=== PATIENT | female | born 1960 ===

== ENCOUNTER 2021-05-30 09:10 | Inpatient (IN) | payer MEDICARE, BC ==
[2021-05-30 12:00] LABS: Glucose,Whole Blood 178 mg/dL (75-99)
[2021-05-30] MEDS ORDERED: NALOXONE 0.4 MG/ML 1 ML VIAL IV PRN (12:12)
[2021-05-30] MEDS ORDERED: ACETAMINOPHEN TAB 325 MG TAB PO PRN (12:15)
[2021-05-30] MEDS ORDERED: NA PHOS,M-B/NA PHOS,DI-BA 133 ML ENEMA RECTAL PRN (12:15)
[2021-05-30] MEDS ORDERED: MORPHINE SULFATE 2 MG/ML SYRINGE IV PRN (12:15)
[2021-05-30] MEDS ORDERED: DILTIAZEM 125 MG in SODIUM CHLORIDE 0.9% 100 ML IV SCH (12:30)
[2021-05-30] MEDS ORDERED: HEPARIN SOD,PORK IN 0.45% NACL 25,000 UNIT in 0.45% NACL 1 250ML.BAG IV SCH (12:30)
[2021-05-30] MEDS ORDERED: BUMETANIDE 0.25 MG/ML 4 ML VIAL IVP STA (12:34)
[2021-05-30] MEDS ORDERED: methylPREDNISolone SOD SUCCI 125 MG/2 ML VIAL IV STA (12:34)
[2021-05-30] MEDS: NYSTATIN 100,000 UNIT/ML SUSP 500,000 UNIT/5 ML CUP PO SCH ×3 (13:00→21:01)
[2021-05-30 13:05] LABS: Basophils # (A) 0.1 k/uL (0-0.2); Basophils % (A) 0 %; Eosinophils % (A) 0 %; HGB 11.7 gm/dL (11.4-16.0); Hypochromasia Slight; Lymphocytes # (A) 0.5 k/uL (1.0-4.8); Lymphocytes % (A) 4 %; MCH 30.9 pg (25.0-35.0); MCHC 30.8 g/dL (31.0-37.0); MCV 100.5 fL (80.0-100.0); Monocytes # (A) 0.8 k/uL (0-1.0); Monocytes % (A) 6 %; Neutrophils # (A) 12.2 k/uL (1.3-7.7); Neutrophils % (A) 90 %; Platelet Count 219 k/uL (150-450); RBC 3.78 m/uL (3.80-5.40); RDW 13.5 % (11.5-15.5); WBC 13.6 k/uL (3.8-10.6)
--- NOTE | 2021-05-30 13:08 | XR ---
EXAMINATION TYPE: XR chest 1V DATE OF EXAM: 05/30/2021 COMPARISON: NONE HISTORY: Shortness of breath TECHNIQUE: Single frontal view of the chest is obtained. FINDINGS: Postoperative change with cardiomegaly and diffuse interstitial pattern. No pneumothorax. No sizable pleural effusion. IMPRESSION: Diffuse interstitial pattern correlate for interstitial pneumonitis versus venous conges tion.
[2021-05-30] MEDS: INSULIN ASPART (NovoLOG) 100 UNIT/ML VIAL SQ SCH ×3 (13:15→21:03)
[2021-05-30] MEDS: DILTIAZEM 125 MG in SODIUM CHLORIDE 0.9% 100 ML IV SCH ×2 (13:24→23:36)
[2021-05-30] MEDS ORDERED: IPRATROPIUM-ALBUTEROL 3 ML NEB INHALATION PRN (13:25)
--- NOTE | 2021-05-30 13:29 | P.CNPUL ---
History of Present Illness Consult date: 05/30/21 Reason for consult: dyspnea, COPD History of present illness: 58-year-old female patient was transferred to us from an outside hospital for worsening shortness of breath and acute respiratory distress. The patient presented to her primary care physician with worsening shortness of breath associated with some increased dyspnea and wheeze. She is known to have COPD and she quit smoking back in December 2020. She is smoking up to 2 pack of cigare ttes a day and she did that since the age of 11. She had increased cough and chest tightness along with some light yellow sputum production. Her cough got worse as the patient was having increased wheezing and shortness of breath and for that reason she presented to her physician. She was referred to the emergency department in the ED the patient was found to have a pulse ox in the low 80s. She wason 2 L about 2 by nasal cannula. She was also in atrial fibrillation with rapid ventricular response and she was started on a Cardizem drip. She was quite short of breath. Chest x-ray showed post thoracotomy changes. Cardiac enzymes were negative. INR was at 1.6. Patient was transferred to our hospital for further care. At the time of arrival to the ICU, she was already on BiPAP at a pressure of 10/5 cm of water with an FiO2 of 40%. She was feeling better. Her breathing was less labored. She denied having any chest pain. She was started on a Cardizem drip for heart rate was under better control. I reviewed the blood work that was sent over from the other hospital and the patient had a sodium level of 136, potassium of 4.5, serum bicarbonate 35, glucose of 150, AST of 56, creatinine of 0.7, ALT of 61, proBNP level of 3870, white cell count was at 13.8 with hemoglobin of 12.4. Chest x-ray showed "sternotomy with cardiac valve replacement. Note that the patient has undergone previous coronary artery bypass surgery and aortic/mitral valve replacement. Her EKG was showing A. fib/flutter and in our ICU, she was started in the front the rhythm with variable conduction response. Her most recent echocardiogram was done on 05/27/2021 and the patient was found to have a normal ejection fraction of 55%, right ventricular systolic pressure was estimated to be 52. There was severe increase in left atrial diameter, normal functioning mechanical mitral valve and normal functioning mechanical aortic valve. She had moderate degree of tricuspid regurgitation. At a time of my evaluation, the patient was awake and alert. She was feeling better. She was less short of breath. She wanted to come off the BiPAP mask. She was on IV heparin. She was also on Cardizem drip running at 5 mg an hour. She was still in atrial fibrillation/flutter. She was started on DuoNeb nebulized treatments around the clock. She was given also dose of Bumex 2 mg IV in addition to IV Solu-Medrol prior to her transfer here to our hospital through the [facility] catheter was inserted. Review of Systems Constitutional: Reports fatigue, Reports poor appetite Eyes: denies as per HPI, denies blurred vision, denies bulging eye, denies decreased vision, denies diplopia, denies discharge, denies dry eye, denies irritation, denies itching, denies pain, denies photophobia, denies loss of peripheral vision, denies loss of vision, denies tunnel vision/blind spots Ears: deny: decreased hearing, ear discharge, earache, tinnitus Ears, nose, mouth and throat: Reports as per HPI Breasts: absent: as per HPI, change in shape, gynecomastia, masses, nipple discharge, pain, skin changes, swelling Cardiovascular: Reports as per HPI, Reports decreased exercise tolerance, Reports dyspnea on exertion Respiratory: Reports cough, Reports dyspnea, Reports excessive sputum, Reports snoring, Reports wheezing Gastrointestinal: Reports as per HPI Genitourinary: Reports as per HPI Menstruation: Reports as per HPI Musculoskeletal: Reports as per HPI Musculoskeletal: bilateral: ankle swelling, absent: ankle pain, ankle stiffness Integumentary: Reports as per HPI Neurological: Reports as per HPI Psychiatric: Reports as per HPI Endocrine: Reports as per HPI Hematologic/Lymphatic: Reports as per HPI Past Medical History Past Medical History: Coronary Artery Disease (CAD), COPD Additional Past Medical History / Comment(s): History of aortic and mitral valve replacement with mechanical valves, hyperlipidemia, hypothyroidism, hypertension, chronic atrial fibrillation/flutter, obesity with a BMI of 46, COPD Past Surgical History: Cardiac Valve Replacement, Coronary Bypass/CABG Smoking Status: Former smoker (More than [id number] smoking history) Medications and Allergies Home Medications Medication Instructions Recorded Confirmed Type ALPRAZolam [Xanax] 0.5 mg PO TID 10/22/21 10/22/21 History ARIPiprazole [Abilify] 10 mg PO DAILY 05/30/21 05/30/21 History Aspirin EC [Ecotrin Low Dose] 81 mg PO DAILY 05/30/21 05/30/21 History Bisoprolol Fumarate [Zebeta] 10 mg PO DAILY 05/30/21 05/30/21 History Enalapril [Vasotec] 5 mg PO DAILY 05/30/21 05/30/21 History Fluticasone/Vilanterol [Breo 1 puff INHALATION RT-DAILY 05/30/21 05/30/21 History Ellipta 100-25 Mcg Inhaler] Furosemide [Lasix] 40 mg PO BID 05/30/21 05/30/21 History HYDROcodone/APAP 7.5-325MG [Thompson 1 tab PO BID PRN 05/30/21 05/30/21 History 7.5-325] Levothyroxine Sodium [Synthroid] 25 mcg PO DAILY 05/30/21 05/30/21 History Mirabegron [Myrbetriq] 25 mg PO DAILY 05/30/21 05/30/21 History Pantoprazole [Protonix] 40 mg PO DAILY 05/30/21 05/30/21 History RX: Warfarin Sodium 6 mg PO W/SUPPER 05/30/21 05/30/21 History RX: traMADol HCL 50 mg PO Q6H PRN 05/30/21 05/30/21 History Rosuvastatin [Crestor] 20 mg PO HS 05/30/21 05/30/21 History Venlafaxine HCl [Effexor] 225 mg PO BID 05/30/21 05/30/21 History Warfarin [Coumadin] 1 mg PO W/SUPPER 05/30/21 05/30/21 History Allergies Allergy/AdvReac Type Severity Reaction Status Date / Time Iodinated Contrast Media Allergy Nausea & Verified 05/30/21 12:17 Vomiting amoxicillin AdvReac Rash/Hives Verified 05/30/21 12:17 bupropion [From Wellbutrin] AdvReac Rash/Hives Verified 05/30/21 12:17 Penicillins AdvReac Rash/Hives Verified 05/30/21 12:17 Physical Exam Vitals: Vital Signs Temp Pulse Resp BP Pulse Ox 05/30/21 13:00 128 H 16 120/85 97 05/30/21 12:00 118 H 20 120/85 90 L 05/30/21 11:37 97.7 F 117 H 27 H 130/87 90 L Intake and Output 05/29/21 05/30/21 05/30/21 22:59 06:59 14:59 Other: Weight 114 kg Obese, in mild degree of respiratory distress, the patient is currently on a BiPAP with a BiPAP pressure of 10/5 cm water and the patient was weaned off to nasal cannula. She is not using excessive muscle breathing. Head exam was generally normal. There was no scleral icterus or corneal arcus. Mucous membranes were moist. Neck was supple and without jugular venous distension, thyromegaly, or carotid bruits. Carotids were easily palpable bilaterally. There was no adenopathy. Mucous membranes are dry and the patient is a Mallampati class IV Lungs sounds are diminished and the patient is diffuse expiratory wheezes throughout the lung parish bilaterally Heart sounds are irregular consistent with atrial fibrillation. There is a thoracotomy scar over the anterior part of the chest. The patient also has aortic valve and mitral valve clicks with some systolic ejection murmur grade 3/6 heard throughout the precordium mainly in the left lateral sternal border. Abdominal exam revealed normal bowel sounds. The abdomen was soft, non-tender, and without masses, organomegaly, or appreciable enlargement of the abdominal aorta. Extremities revealed +1 edema and there is no signs of clubbing Examination of the skin revealed no evidence of significant rashes, suspicious appearing nevi or other concerning lesions. Neurologically, the patient is awake and alert and the patient does not have any focal neurological deficit. Cranial nerves are essentially intact. Results - Laboratory Findings CBC and BMP: 05/30/21 12:44 Abnormal lab findings: Abnormal Labs 05/30/21 05/30/21 11:40 12:44 WBC 13.6 H RBC 3.78 L MCV 100.5 H MCHC 30.8 L Neutrophils # 12.2 H Lymphocytes # 0.5 L POC Glucose (mg/dL) 178 H - Diagnostic Findings Chest x-ray: image reviewed Assessment and Plan Plan: 1 acute COPD exacerbation with second and shortness of breath. Chest x-ray free of any acute pulmonary infiltrates. Rule out underlying taken bronchitis. 2 atrial fibrillation/flutter with rapid ventricular response currently on a Cardizem drip for rate control, INR was subtherapeutic and the patient is currently on IV heparin 3 shortness of breath secondary to above 4 acute hypoxic respiratory failure secondary to above. No signs of any congestion heart failure. ProBNP was elevated. No evidence of any pneumonia. The patient has been vaccinated for COVID-19 5 history of coronary artery disease with previous coronary artery bypass surgery 6 history of valvular disease and the patient has undergone mitral and aortic valve replacement, mechanical valve. Recent echo cardiac exam shows normal functionality of the mitral and aortic valve. The patient has a preserved LV function with normal ejection fraction and secondary pulmonary hypertension with a PA pressure of around 52 mmHg 7 subtherapeutic INR 8 obesity with a BMI of 46 9 features of obstructive sleep apnea. 10 hyperlipidemia 11 COPD maintained on Breo Ellipta on outpatient basis 12 hypothyroidism 13 hypertension Plan Discontinue the BiPAP and titrate oxygen flow to maintain a saturation above 92%. Started at 5 L continue DuoNeb and the treatment [id number] IV Solu-Medrol 60 mg every 6 hours stop Breo, and the plated with Perforomist and Pulmicort nebulized treatments twice a day IV Lasix 40 mg every 24 hours IV Cardizem drip for rate control IV heparin and monitor the PT/INR and dose the Coumadin accordingly. INR is currently subtherapeutic Recheck labs including thyroid function test Resume all medications including Synthroid and aspirin We'll continue to follow. Keep the patient ICU for now.
[2021-05-30 13:40] LABS: ALT 56 U/L (4-34); AST 42 U/L (14-36); African American GFR (CKD) >90 (>60 ml/min/1.73 sqM); Albumin 3.5 g/dL (3.5-5.0); Alkaline Phosphatase 102 U/L (38-126); Anion Gap 4 mmol/L; Blood Urea Nitrogen 22 mg/dL (7-17); Calcium 9.2 mg/dL (8.4-10.2); Carbon Dioxide 37 mmol/L (22-30); Chloride 97 mmol/L (98-107); Glucose 140 mg/dL (74-99); Magnesium 2.2 mg/dL (1.6-2.3); Non-African American GFR(CKD) >90 (>60 ml/min/1.73 sqM); Phosphorus 2.5 mg/dL (2.5-4.5); Potassium 4.2 mmol/L (3.5-5.1); Sodium 138 mmol/L (137-145); Total Bilirubin 0.4 mg/dL (0.2-1.3); Total Protein 6.4 g/dL (6.3-8.2)
[2021-05-30 13:47] LABS: Appearance,Urine Clear (Clear); Bilirubin,Urine Negative (Negative); Blood,Urine Negative (Negative); Color,Urine Light Yellow; Glucose,Urine (UA) Negative (Negative); Ketones,Urine Negative (Negative); Leukocyte Esterase,Urine Negative (Negative); Nitrite,Urine Negative (Negative); PH, Urine 6.5 (5.0-8.0); Protein,Urine Negative (Negative); Urobilinogen,Urine <2.0 mg/dL (<2.0)
[2021-05-30 13:51] LABS: Partial Thromboplastin Time 31.7 sec (22.0-30.0)
[2021-05-30 14:14] LABS: INR 6.6 (<1.2)
--- NOTE | 2021-05-30 14:34 | P.CRDCN ---
History of Present Illness Consult date: 05/30/21 Chief complaint: Shortness of breath History of present illness: The patient is a 61-year-old female patient was transferred from another [facility] for further care. She does have a past medical history significant for permanent atrial fibrillation on oral anticoagulation with Coumadin and also she does have history of rheumatic valvular disease where she underwent about a year ago replacement of the aortic and mitral valve with mechanical prosthesis. Beside that the patient is obese and does have history of chronic obstructive pulmonary disease. She is somewhat poor historian. Apparently she was seen by her primary care physician earlier today where she was found to have wheezing on examination and increasing in the shortness of breath with exertion. She was asked to go to the emergency department. Also she was experiencing increasing in her cough. She the patient reports no symptoms of chest pain or chest discomfort and no dizziness or lightheadedness and no presyncope or syncope. In the emergency department she was found to be hypoxic and she was found to be in atrial fibrillation with rapid ventricular response. For that reason the patient was transferred for further evaluation. She was already seen by the pulmonary critical care team and she was diagnosed with COPD exacerbation. Currently the patient is in atrial fibrillation with RVR. Currently she is on Cardizem at 5 mg per hour. She stated that she was compliant with her medications at home including beta emerson and also she was compliant with her C oumadin. On examination she seems in mild respiratory distress and she does have severe bilateral expiratory wheezing. The chest x-ray showed findings consistent with COPD with possible pulmonary vascular congestions. She was given a dose of Bumex earlier today and currently she is on Lasix at 40 mg IV daily. We will obtain serial cardiac enzymes to rule out acute coronary event. The patient is not aware if she underwent coronary artery bypass grafting with her surgery or no. She does not know she was diagnosed with CAD before. I did review the chart from the other hospital and that revealed an echocardiogram was performed recently and that revealed normal LV function with normally fu nctioning mechanical mitral and mechanical aortic prosthesis. Past Medical History Past Medical History: Coronary Artery Disease (CAD), COPD Additional Past Medical History / Comment(s): History of aortic and mitral valve replacement with mechanical valves, hyperlipidemia, hypothyroidism, hypertension, chronic atrial fibrillation/flutter, obesity with a BMI of 46, COPD Past Surgical History: Cardiac Valve Replacement, Coronary Bypass/CABG Smoking Status: Former smoker (More than [id number] smoking history) Medications and Allergies Home Medications Medication Instructions Recorded Confirmed Type ALPRAZolam [Xanax] 0.5 mg PO TID 05/30/21 05/30/21 History ARIPiprazole [Abilify] 10 mg PO DAILY 05/30/21 05/30/21 History Aspirin EC [Ecotrin Low Dose] 81 mg PO DAILY 05/30/21 05/30/21 History Bisoprolol Fumarate [Zebeta] 10 mg PO DAILY 05/30/21 05/30/21 History Enalapril [Vasotec] 5 mg PO DAILY 05/30/21 05/30/21 History Fluticasone/Vilanterol [Breo 1 puff INHALATION RT-DAILY 05/30/21 05/30/21 History Ellipta 100-25 Mcg Inhaler] Furosemide [Lasix] 40 mg PO BID 05/30/21 05/30/21 History HYDROcodone/APAP 7.5-325MG [Wheeler 1 tab PO BID PRN 05/30/21 05/30/21 History 7.5-325] Levothyroxine Sodium [Synthroid] 25 mcg PO DAILY 05/30/21 05/30/21 History Mirabegron [Myrbetriq] 25 mg PO DAILY 05/30/21 05/30/21 History Pantoprazole [Protonix] 40 mg PO DAILY 05/30/21 05/30/21 History Rosuvastatin [Crestor] 20 mg PO HS 05/30/21 05/30/21 History Venlafaxine HCl [Effexor] 225 mg PO BID 05/30/21 05/30/21 History Warfarin Sodium 6 mg PO W/SUPPER 05/30/21 05/30/21 History Warfarin [Coumadin] 1 mg PO W/SUPPER 05/30/21 05/30/21 History traMADol HCL 50 mg PO Q6H PRN 05/30/21 05/30/21 History Allergies Allergy/AdvReac Type Severity Reaction Status Date / Time Iodinated Contrast Media Allergy Nausea & Verified 05/30/21 12:17 Vomiting amoxicillin AdvReac Rash/Hives Verified 05/30/21 12:17 bupropion [From Wellbutrin] AdvReac Rash/Hives Verified 05/30/21 12:17 Penicillins AdvReac Rash/Hives Verified 05/30/21 12:17 Physical Exam Vitals: Vital Signs Temp Pulse Resp BP Pulse Ox 05/30/21 13:00 128 H 16 120/85 97 05/30/21 12:00 118 H 20 120/85 90 L 05/30/21 11:37 97.7 F 117 H 27 H 130/87 90 L Intake and Output 05/29/21 05/30/21 05/30/21 22:59 06:59 14:59 Intake Total 10 Output Total 1300 Balance -1290 Intake: IV 10 0.9 Normal Saline @ 5mL/ 5 hr - KVO Diltiazem 125 mg In 5 Sodium Chloride 0.9% 100 ml @ Per Protocol IV .Q0M [facility] Rx#:[id number] Output: Urine 1300 Other: Weight 114 kg - Constitutional General appearance: no acute distress - Respiratory Respiratory: bilateral: wheezing - Cardiovascular Rhythm: irregularly irregular Results 05/30/21 12:44 05/30/21 12:44 Cardiac Enzymes 05/30/21 Range/Units 12:44 AST 42 H (14-36) U/L Coagulation 05/30/21 Range/Units 12:44 PT 64.0 H (9.0-12.0) sec APTT 31.7 H (22.0-30.0) sec CBC 05/30/21 Range/Units 12:44 WBC 13.6 H (3.8-10.6) k/uL RBC 3.78 L (3.80-5.40) m/uL Hgb 11.7 (11.4-16.0) gm/dL Hct 38.0 (34.0-46.0) % Plt Count 219 (150-450) k/uL Comprehensive Metabolic Panel 05/30/21 Range/Units 12:44 Sodium 138 (137-145) mmol/L Potassium 4.2 (3.5-5.1) mmol/L Chloride 97 L (98-107) mmol/L Carbon Dioxide 37 H (22-30) mmol/L BUN 22 H (7-17) mg/dL Creatinine 0.57 (0.52-1.04) mg/dL Glucose 140 H (74-99) mg/dL Calcium 9.2 (8.4-10.2) mg/dL AST 42 H (14-36) U/L ALT 56 H (4-34) U/L Alkaline Phosphatase 102 (38-126) U/L Total Protein 6.4 (6.3-8.2) g/dL Albumin 3.5 (3.5-5.0) g/dL Current Medications Generic Name Dose Route Start Last Admin Trade Name Freq PRN Reason Stop Dose Admin Acetaminophen 650 mg 05/30/21 12:15 Acetaminophen Tab 325 Mg Tab PO Q4HR PRN Fever and/or Mild Pain Hydrocodone Bitart/Acetaminophen 1 each 05/30/21 13:24 Hydrocodone/Apap 7.5-325mg 1 Each Tab PO BID PRN Pain Albuterol/Ipratropium 3 ml 05/30/21 16:00 Ipratropium-Albuterol 3 Ml Neb INHALATION RT-Q4H ROGERS Albuterol/Ipratropium 3 ml 05/30/21 20:00 Ipratropium-Albuterol 3 Ml Neb INHALATION RT-TID ROGERS Albuterol/Ipratropium 3 ml 05/30/21 13:25 Ipratropium-Albuterol 3 Ml Neb INHALATION RT-QID PRN Shortness Of Breath Or Wheezing Alprazolam 0.125 mg 05/30/21 12:15 Alprazolam 0.25 Mg Tab PO Q6HR PRN Mild Anxiety Aripiprazole 10 mg 05/30/21 13:45 Aripiprazole 10 Mg Tab PO DAILY ROGERS Aspirin 81 mg 05/30/21 13:45 Aspirin 81 Mg PO DAILY [facility] Atorvastatin Calcium 40 mg 05/30/21 21:00 Atorvastatin 40 Mg Tab PO HS [facility]ERS Budesonide 1 mg 05/30/21 20:00 Budesonide 1 Mg/2 Ml Nebu INHALATION RT-BID ROGERS Formoterol Fumarate 20 mcg 05/30/21 20:00 Formoterol Fumarate 20 Mcg/2 Ml Nebu INHALATION RT-BID [facility] Furosemide 40 mg 05/31/21 09:00 Furosemide 10 Mg/Ml 4 Ml Vial IV DAILY [facility]ERS Diltiazem HCl 125 mg/ Sodium 125 mls @ 0 mls/hr 05/30/21 13:00 05/30/21 13:24 Chloride IV 5 ml/hr .Q0M [facility] 5 mls/hr Administration Protocol Per Protocol Heparin Sodium/Sodium Chloride 250 mls @ 10 mls/hr 05/30/21 12:30 05/30/21 13:37 25,000 unit/ Sodium Chloride IV 8.772 units/kg/hr .Q24H [facility]OGERS 10 mls/hr Administration Protocol 8.772 UNITS/KG/HR Insulin Aspart 0 unit 05/30/21 12:30 05/30/21 13:15 Insulin Aspart (Novolog) 100 Unit/Ml Vial SQ 3 unit ACHS [facility] Administration Protocol Levothyroxine Sodium 25 mcg 05/31/21 06:30 Levothyroxine 25 Mcg Tab PO DAILY@0630 [facility] Methylprednisolone Sodium Succinate 60 mg 05/30/21 18:00 Methylprednisolone Sod Succi 125 Mg/2 Ml Vial IV Q6HR [facility] Miscellaneous Information 1 each 05/30/21 13:28 Warfarin Per Pharmacy MISCELLANE DIRECTED PRN Per Protocol Protocol Morphine Sulfate 2 mg 05/30/21 12:15 Morphine Sulfate 2 Mg/Ml Syringe IV Q2HR PRN Pain Scale 4 to 5 Naloxone HCl 0.2 mg 05/30/21 12:12 Naloxone 0.4 Mg/Ml 1 Ml Vial IV Q2M PRN Opioid Reversal Non-Formulary Medication 25 mg 05/31/21 09:00 Mirabegron [Myrbetriq] PO DAILY [facility] Nystatin 400,000 unit 05/30/21 13:00 Nystatin 100,000 Unit/Ml Susp 500,000 Unit/5 Ml Cup PO QID [facility] Pantoprazole Sodium 40 mg 05/31/21 07:30 Pantoprazole 40 Mg Tablet PO AC-BRKFST [facility] Senna 17.2 mg 05/30/21 21:00 Sennosides 8.6 Mg Tab NG-TUBE HS [facility] Sodium Biphosphate/Sodium Phosphate 133 ml 05/30/21 12:15 Na Phos,M-B/Na Phos,Di-Ba 133 Ml Enema RECTAL 06/06/21 12:16 ONCE PRN Constipation Venlafaxine HCl 225 mg 05/30/21 21:00 Venlafaxine Hcl 75 Mg Tab PO BID [facility] Intake and Output 05/29/21 05/30/21 05/30/21 22:59 06:59 14:59 Intake Total 10 Output Total 1300 Balance -1290 Intake: IV 10 0.9 Normal Saline @ 5mL/ 5 hr - KVO Diltiazem 125 mg In 5 Sodium Chloride 0.9% 100 ml @ Per Protocol IV .Q0M [facility] Rx#:[id number] Output: Urine 1300 Other: Weight 114 kg Patient Weight 05/31/21 06:59 Weight 114 kg 05/30/21 12:44 05/30/21 12:44 Assessment and Plan Assessment: Assessment #1 acute hypoxic respiratory failure #2 acute exacerbation of COPD #3 probably a component of heart failure related to diastolic dysfunction #4 atrial fibrillation with rapid ventricular response. The patient is known to have permanent atrial fibrillation #5 valvular heart disease and status post mechanical mitral and aortic valve replacement #6 morbid obesity #7 supratherapeutic INR #8 multiple comorbid conditions Plan #1 agree about keeping the patient on heparin right now. #2 restart the patient back on Coumadin once the INR is down and continue heparin until the INR is therapeutic otherwise the patient is at high risk of having valve thrombosis #3 continue Lasix IV for now #4 monitor the kidney function and electrolytes #5 follow-up with the patient
--- NOTE | 2021-05-30 14:45 | P.HPIM ---
History of Present Illness H&P Date: 05/30/21 Chief Complaint: Shortness of Breath 58 years old female who presented with the chief complaints of worsening respiratory failure from outside hospital. Originally she presented at outside hospital for worsening shortness of breath, patient was admitted for respiratory failure due to COPD exacerbation and possible CHF with fluid overload, patient also developed atrial fibrillation with RVR. Patient was started on BiPAP and was started on Cardizem drip outside hospital, I was contacted by physician from outside hospital who mentioned that they do not have ICU at their facility and patient is requiring higher level of care. Patient does have history of pr evious coronary artery bypass surgery and aortic mitral valve replacement. Patient most recent echocardiogram was done on 05/27/2021 showing EF of 55%, RVSP 52, otherwise no major abnormalities were noted per electronic medical record. Patient was transferred to [facility] for further care and was admitted to hospital medicine service on ICU. Review of Systems 14 point review of system was done in detail and is negative except as above in HPI. Past Medical History Past Medical History: Coronary Artery Disease (CAD), COPD, Hyperlipidemia, Hypertension, Myocardial Infarction (NE), Sleep Apnea/CPAP/BIPAP Additional Past Medical History / Comment(s): History of aortic and mitral valve replacement with mechanical valves, hyperlipidemia, hypothyroidism, hypertension, chronic atrial fibrillation/flutter, obesity with a BMI of 46, COPD Past Surgical History: Cardiac Valve Replacement, Coronary Bypass/CABG Smoking Status: Former smoker (More than [id number] smoking history) Medications and Allergies Home Medications Medication Instructions Recorded Confirmed Type ALPRAZolam [Xanax] 0.5 mg PO TID 05/30/21 05/30/21 History ARIPiprazole [Abilify] 10 mg PO DAILY 05/30/21 05/30/21 History Aspirin EC [Ecotrin Low Dose] 81 mg PO DAILY 05/30/21 05/30/21 History Bisoprolol Fumarate [Zebeta] 10 mg PO DAILY 05/30/21 05/30/21 History Enalapril [Vasotec] 5 mg PO DAILY 05/30/21 05/30/21 History Fluticasone/Vilanterol [Breo 1 puff INHALATION RT-DAILY 05/30/21 05/30/21 History Ellipta 100-25 Mcg Inhaler] Furosemide [Lasix] 40 mg PO BID 05/30/21 05/30/21 History HYDROcodone/APAP 7.5-325MG [Cable 1 tab PO BID PRN 05/30/21 05/30/21 History 7.5-325] Levothyroxine Sodium [Synthroid] 25 mcg PO DAILY 05/30/21 05/30/21 History Mirabegron [Myrbetriq] 25 mg PO DAILY 05/30/21 05/30/21 History Pantoprazole [Protonix] 40 mg PO DAILY 05/30/21 05/30/21 History Rosuvastatin [Crestor] 20 mg PO HS 05/30/21 05/30/21 History Venlafaxine HCl [Effexor] 225 mg PO BID 05/30/21 05/30/21 History Warfarin Sodium 6 mg PO W/SUPPER 05/30/21 05/30/21 History Warfarin [Coumadin] 1 mg PO W/SUPPER 05/30/21 05/30/21 History traMADol HCL 50 mg PO Q6H PRN 05/30/21 05/30/21 History Allergies Allergy/AdvReac Type Severity Reaction Status Date / Time Iodinated Contrast Media Allergy Nausea & Verified 05/30/21 12:17 Vomiting amoxicillin AdvReac Rash/Hives Verified 05/30/21 12:17 bupropion [From Wellbutrin] AdvReac Rash/Hives Verified 05/30/21 12:17 Penicillins AdvReac Rash/Hives Verified 05/30/21 12:17 Physical Exam Vitals: Vital Signs Temp Pulse Resp BP Pulse Ox 05/30/21 13:00 128 H 16 120/85 97 05/30/21 12:00 118 H 20 120/85 90 L 05/30/21 11:37 97.7 F 117 H 27 H 130/87 90 L Intake and Output 05/29/21 05/30/21 05/30/21 22:59 06:59 14:59 Intake Total 10 Output Total 1300 Balance -1290 Intake: IV 10 0.9 Normal Saline @ 5mL/ 5 hr - KVO Diltiazem 125 mg In 5 Sodium Chloride 0.9% 100 ml @ Per Protocol IV .Q0M [facility] Rx#:[id number] Output: Urine 1300 Other: Weight 114 kg General: Patient in mild to moderate distress due to" HEENT: Atraumatic, PERRL, neck supple no lymphadenopathy Heart: Irregularly irregular heart rate, systolic murmur heard Lungs: Diminished breath sounds bilaterally, bilateral lower lobe crackles Abdomen: Soft nontender nondistended no organomegaly noticed, while some positive for coronary Lower extremity:Positive, +1 lower extremity edema, extremities warm Neurologic exam: Patient alert oriented time place and person, grossly nonfocal Psychiatric exam: Mood appropriate, Patient not suicidal Skin exam: No rashes, no jaundice Results CBC & Chem 7: 05/30/21 12:44 05/30/21 12:44 Labs: Abnormal Lab Results - Last 24 Hours (Table) 05/30/21 05/30/21 05/30/21 Range/Units 11:40 12:44 12:44 WBC 13.6 H (3.8-10.6) k/uL RBC 3.78 L (3.80-5.40) m/uL MCV 100.5 H (80.0-100.0) fL MCHC 30.8 L (31.0-37.0) g/dL Neutrophils # 12.2 H (1.3-7.7) k/uL Lymphocytes # 0.5 L (1.0-4.8) k/uL PT 64.0 H (9.0-12.0) sec INR 6.6 H* (<1.2) APTT 31.7 H (22.0-30.0) sec Chloride (98-107) mmol/L Carbon Dioxide (22-30) mmol/L BUN (7-17) mg/dL Glucose (74-99) mg/dL POC Glucose (mg/dL) 178 H (75-99) mg/dL AST (14-36) U/L ALT (4-34) U/L 05/30/21 Range/Units 12:44 WBC (3.8-10.6) k/uL RBC (3.80-5.40) m/uL MCV (80.0-100.0) fL MCHC (31.0-37.0) g/dL Neutrophils # (1.3-7.7) k/uL Lymphocytes # (1.0-4.8) k/uL PT (9.0-12.0) sec INR (<1.2) APTT (22.0-30.0) sec Chloride 97 L (98-107) mmol/L Carbon Dioxide 37 H (22-30) mmol/L BUN 22 H (7-17) mg/dL Glucose 140 H (74-99) mg/dL POC Glucose (mg/dL) (75-99) mg/dL AST 42 H (14-36) U/L ALT 56 H (4-34) U/L Assessment and Plan Assessment: Acute hypoxic respiratory failure Likely multifactorial, due to COPD exacerbation and congestive heart failure exacerbation, likely acute diastolic congestive heart failure, and this revealed atrial fibrillation with RVR We'll start patient on broad-spectrum metabolic, check sputum culture, Solu- Medrol 60 mg every 8 hours IV Careful diuresis and management of atrial fibrillation with RVR, cardiology consultation Consulting cardiology and pulmonary medicine. Acute COPD exacerbation, cannot exclude hospital-acquired pneumonia We'll start patient on broad-spectrum metabolic, Solu-Medrol 60 mg IV every 8 hourly Bronchodilator treatment continue oxygen support and BiPAP as needed Check CT chest angiogram We'll get ABGs, with a pulmonary medicine consultation Atrial fibrillation with RVR Patient at home was on Coumadin for her history of mechanical cardiac valve, will keep patient here on heparin drip, Cardizem drip Echocardiogram recently done as mentioned above EF 55% RVSP 52 We'll consult cardiology for evaluation. Acute on chronic diastolic congestive heart failure Likely in the setting of above echocardiogram results as mentioned above IV diuresis with careful monitoring of basic medical profile renal function on a daily basis Continue cardiac telemetry. History of coronary artery disease status post CABG and history of valvular heart disease status post mitral and aortic valve replacement with mechanical valve Continue anticoagulation as mentioned above Consulting cardiology for further recommendation. Obesity with obstructive sleep apnea, BMI of 46 Continue BiPAP Patient will benefit from outpatient sleep study. Hyperlipidemia Continue statin DVT prophylaxis: Heparin CODE STATUS: Full code Discharge plan: Likely in 3-4 days pending hospital course and clinical improvement and pending workup.
[2021-05-30 14:58] VITALS: BMI 45.9
[2021-05-30 15:49] LABS: Creatine Kinase MB 3.1 ng/mL (0.0-2.4); Troponin I 0.014 ng/mL (0.000-0.034)
[2021-05-30] MEDS: ASPIRIN 81 MG PO SCH (15:57)
[2021-05-30] MEDS: ARIPiprazole 10 MG TAB PO SCH (15:57)
[2021-05-30] MEDS: IPRATROPIUM-ALBUTEROL 3 ML NEB INHALATION SCH ×3 (16:06→23:31)
[2021-05-30 17:15] LABS: Glucose,Whole Blood 207 mg/dL (75-99)
[2021-05-30] MEDS: methylPREDNISolone SOD SUCCI 125 MG/2 ML VIAL IV SCH (17:23)
[2021-05-30 17:50] LABS: T4, Free (Free Thyroxine) 1.5 ng/dL (0.78-2.19)
[2021-05-30] MEDS ORDERED: WARFARIN 0.5 MG TAB PO ONE (18:00)
[2021-05-30] MEDS: FORMOTEROL FUMARATE 20 MCG/2 ML NEBU INHALATION SCH (19:02)
[2021-05-30] MEDS: BUDESONIDE 1 MG/2 ML NEBU INHALATION SCH (19:02)
[2021-05-30] MEDS ORDERED: IPRATROPIUM-ALBUTEROL 3 ML NEB INHALATION SCH (20:00)
[2021-05-30] MEDS ORDERED: VANCOMYCIN IV PER PHARMACY 1 EACH MISC MISCELLANE PRN (20:19)
[2021-05-30 20:21] LABS: Creatine Kinase MB 2.3 ng/mL (0.0-2.4); Troponin I 0.017 ng/mL (0.000-0.034)
[2021-05-30 20:35] LABS: Glucose,Whole Blood 138 mg/dL (75-99)
[2021-05-30] MEDS ORDERED: ONDANSETRON 4 MG/2 ML VIAL IVP PRN (20:51)
[2021-05-30] MEDS ORDERED: CEFEPIME 1 GM in SODIUM CHLORIDE 0.9% 50 ML IVPB ONE (21:00)
[2021-05-30] MEDS ORDERED: SENNOSIDES 8.6 MG TAB NG-TUBE SCH (21:00)
[2021-05-30] MEDS: ATORVASTATIN 40 MG TAB PO SCH (21:01)
[2021-05-30] MEDS: VENLAFAXINE HCL 75 MG TAB PO SCH (21:01)
[2021-05-30] MEDS: SENNOSIDES 8.6 MG TAB PO SCH (21:01)
[2021-05-30] MEDS: ALPRAZolam 0.25 MG TAB PO PRN (21:01)
[2021-05-30] MEDS: HYDROcodone/APAP 7.5-325MG 1 EACH TAB PO PRN (21:11)
--- NOTE | 2021-05-30 21:49 | CT ---
EXAMINATION TYPE: CT chest angio for PE DATE OF EXAM: 05/30/2021 COMPARISON: HISTORY: sob CT DLP: 902.7 mGycm CONTRAST: CT chest with contrast and 3D reconstruction with MIP imaging is performed with IV Contrast, patient injected with 100 mL of Isovue 370. Contrast-enhanced CT of the chest was performed through the course of the pulmonary arteries with bennett g and mediastinal window settings submitted. 3D reconstruction with MIP imaging was also performed. PULMONARY ARTERIES: The pulmonary arteries and their major tributaries are patent. I do not see ian dence for sizable filling defect to suggest pulmonary embolic process. LUNGS: Spiculated nodule right upper lobe measuring 2 cm. Patchy infiltrates and atelectasis lower lo bes. MEDIASTINUM: Thoracic aorta is of normal caliber,however, evaluation is limited given timing of the contrast bolus. If there is concern for thoracic aortic pathology consider SUNITA. Correlate clinicall y . The heart is not enlarged. No evidence for mediastinal mass. No mediastinal lymph nodes greater than 1cm. HILAR STRUCTURES: No evidence for mass. No hilar lymph nodes greater than 1 cm. UPPER ABDOMEN: No significant abnormality is seen. IMPRESSION: 1. No evidence for Pulmonary embolism at this time. 2. Spiculated nodule right upper lobe suspicious for malignancy. Recommend PET/CT. 3. Patchy basilar infiltrates and/or atelectasis.
[2021-05-30] MEDS: VANCOMYCIN 1,750 MG in SODIUM CHLORIDE 0.9% 500 ML 500 ML IVPB SCH (23:02)
[2021-05-31] MEDS: methylPREDNISolone SOD SUCCI 125 MG/2 ML VIAL IV SCH ×5 (00:27→23:29)
[2021-05-31 03:13] LABS: Basophils % (A) 0 %; Eosinophils # (A) 0.1 k/uL (0-0.7); Eosinophils % (A) 1 %; HCT 36.5 % (34.0-46.0); HGB 11.9 gm/dL (11.4-16.0); Lymphocytes # (A) 0.7 k/uL (1.0-4.8); Lymphocytes % (A) 6 %; MCH 31.8 pg (25.0-35.0); MCHC 32.5 g/dL (31.0-37.0); MCV 97.8 fL (80.0-100.0); Mean Platelet Volume 7.7; Monocytes # (A) 0.7 k/uL (0-1.0); Monocytes % (A) 6 %; Neutrophils # (A) 10.6 k/uL (1.3-7.7); Neutrophils % (A) 88 %; Platelet Count 220 k/uL (150-450); RBC 3.73 m/uL (3.80-5.40); RDW 14.2 % (11.5-15.5); WBC 12.2 k/uL (3.8-10.6)
[2021-05-31] MEDS: IPRATROPIUM-ALBUTEROL 3 ML NEB INHALATION SCH ×5 (03:24→20:46)
[2021-05-31 03:26] LABS: INR 4.6 (<1.2); Partial Thromboplastin Time 63.6 sec (22.0-30.0); Prothrombin Time 44.3 sec (9.0-12.0)
[2021-05-31] MEDS: ALPRAZolam 0.25 MG TAB PO PRN ×3 (03:44→20:59)
[2021-05-31 04:00] LABS: ALT 53 U/L (4-34); AST 37 U/L (14-36); African American GFR (CKD) >90 (>60 ml/min/1.73 sqM); Albumin 3.5 g/dL (3.5-5.0); Alkaline Phosphatase 96 U/L (38-126); Anion Gap 3 mmol/L; Blood Urea Nitrogen 27 mg/dL (7-17); Calcium 8.8 mg/dL (8.4-10.2); Carbon Dioxide 40 mmol/L (22-30); Chloride 94 mmol/L (98-107); Glucose 148 mg/dL (74-99); Non-African American GFR(CKD) >90 (>60 ml/min/1.73 sqM); Potassium 4.3 mmol/L (3.5-5.1); Sodium 137 mmol/L (137-145); Total Bilirubin 0.4 mg/dL (0.2-1.3); Total Protein 6.2 g/dL (6.3-8.2)
[2021-05-31 04:34] LABS: Troponin I 0.035 ng/mL (0.000-0.034)
--- NOTE | 2021-05-31 04:44 | XR ---
EXAMINATION TYPE: XR chest 1V DATE OF EXAM: 05/31/2021 COMPARISON: Yesterday HISTORY: Respiratory distress TECHNIQUE: Single view FINDINGS: There is no heart failure nor confluent pneumonic infiltrate. There are sternal wires. Hear t appears enlarged. There is no pleural effusion. There are chest leads. IMPRESSION: No active cardiopulmonary disease. No adverse change.
[2021-05-31] MEDS: LEVOTHYROXINE 25 MCG TAB PO SCH (05:38)
[2021-05-31] MEDS: HYDROcodone/APAP 7.5-325MG 1 EACH TAB PO PRN ×2 (06:33→21:00)
[2021-05-31 06:47] LABS: Glucose,Whole Blood 136 mg/dL (75-99)
[2021-05-31] MEDS: PANTOPRAZOLE 40 MG TABLET PO SCH (06:53)
[2021-05-31] MEDS: INSULIN ASPART (NovoLOG) 100 UNIT/ML VIAL SQ SCH ×4 (06:54→20:13)
[2021-05-31] MEDS: FORMOTEROL FUMARATE 20 MCG/2 ML NEBU INHALATION SCH ×2 (07:33→20:46)
[2021-05-31] MEDS: BUDESONIDE 1 MG/2 ML NEBU INHALATION SCH ×2 (07:33→20:46)
--- NOTE | 2021-05-31 07:37 | P.PN ---
Subjective Progress Note Date: 05/31/21 Principal diagnosis: 58-year-old female patient was transferred to us from an outside hospital for worsening shortness of breath and acute respiratory distress. The patient prese nted to her primary care physician with worsening shortness of breath associated with some increased dyspnea and wheeze. She is known to have COPD and she quit smoking back in December 2020. She is smoking up to 2 pack of cigarettes a day and she did that since the age of 11. She had increased cough and chest tightness along with some light yellow sputum production. Her cough got worse as the patient was having increased wheezing and shortness of breath and for that reason she presented to her physician. She was referred to the emergency department in the ED the patient was found to have a pulse ox in the low 80s. She wason 2 L about 2 by nasal cannula. She was also in atrial fibrillation with rapid ventricular response and she was started on a Cardizem drip. She was quite short of breath. Chest x-ray showed post thoracotomy changes. Cardiac enzymes were negative. INR was at 1.6. Patient was transferred to our hospital for further care. At the time of arrival to the ICU, she was already on BiPAP at a pressure of 10/5 cm of water with an FiO2 of 40%. She was feeling better. Her breathing was less labored. She denied having any chest pain. She was started on a Cardizem drip for heart rate was under better control. I reviewed the blood work that was sent over from the other hospital and the patient had a sodium level of 136, potassium of 4.5, serum bicarbonate 35, glucose of 150, AST of 56, creatinine of 0.7, ALT of 61, proBNP level of 3870, white cell count was at 13.8 with hemoglobin of 12.4. Chest x-ray showed "sternotomy with cardiac valve replacement. Note that the patient has undergone previous coronary artery bypass surgery and aortic/mitral valve replacement. Her EKG was showing A. fib/flutter and in our ICU, she was started in the front the rhythm with variable conduction response. Her most recent prwas done on 05/27/2021 and the patient was found to have a normal ejection fraction of 55%, right ventricular systolic pressure was estimated to be 52. There was severe increase in left atrial diameter, normal functioning mechanical mitral valve and normal functioning mechanical aortic valve. She had moderate degree of tricuspid regurgitation. At a time of my evaluation, the patient was awake and alert. She was feeling better. She was less short of breath. She wanted to come off the BiPAP mask. She was on IV heparin. She was also on Cardizem drip running at 5 mg an hour. She was still in atrial fibrillation/flutter. She was started on DuoNeb nebulized treatments around the clock. She was given also dose of Bumex 2 mg IV in addition to IV Solu-Medrol prior to her transfer here to our hospital through the Felipe catheter was inserted. On today's evaluation of 05/31/2021, the patient is off the BiPAP and currently she is on oxygen at 8 L per minute. Note that overnight, she was using the BiPAP on and off as the patient was desaturating. As mentioned earlier, the patient was seen in consultation. She was a case of an acute COPD exacerbation and she was acutely bronchospastic and wheezy. She also presented with atrial fibrillation with rapid ventricular response associated with a Cardizem drip. She was already on long-term and coagulation with warfarin and she was supratherapeutic.. As part of further workup, a CT angiogram was done yesterday and there was no evidence of any pulmonary embolism. There was a spiculated nodule in the right upper lobe, suspicious for malignancy and this was measuring around 2 cm in size. Patchy infiltrates/atelectasis lower lobes bilaterally. The pulmonary arteries were patent. No evidence of any embolism. No evidence of any mediastinal lymphadenopathy. The patient also has background emphysema. For now, the patient presented with bronchodilators and the patient on DuoNeb nebulized treatments around the clock. She is on Cardizem drip at 15 mg an hour and her atrial fibrillation and her rate was under better control. We'll morning activities, her heart rate up again. She is free of any chest pain. She remains on IV cefepime. The patient is being diuresis with IV Lasix once a day 40 mg IV push. Morning INR is at 4.6 with a PT of 44.3. Serum bicarb is at 40. BUN is at 27 with a creatinine of 0.6. Troponins are 0.01 and 0.03 respectively, free T4 was at 1.5, UA was negative. White is at 4.2 with a hemoglobin of 11.9. Objective - Vital Signs Vital signs: Vital Signs Temp 98.0 F 05/31/21 04:00 Pulse 99 05/31/21 06:00 Resp 14 05/31/21 06:00 BP 93/74 05/31/21 06:00 Pulse Ox 92 L 05/31/21 06:00 Intake & Output 05/30/21 05/31/21 05/31/21 18:59 06:59 18:59 Intake Total 514.603 0636.416 10 Output Total 3730 745 30 Balance -3629.083 544.416 -20 Weight 114 kg 110.9 kg Intake: IV 90 726 10 0.9 Normal Saline @ 5mL/ 25 110 10 hr - KVO Cefepime 1 gm In Sodium 100 Chloride 0.9% 50 ml @ 100 mls/hr IVPB ONCE@2100 [facility] Rx#:[id number] Diltiazem 125 mg In 65 15 Sodium Chloride 0.9% 100 ml @ Per Protocol IV .Q0M [facility] Rx#:[id number] Vancomycin 1,750 mg In 501 Sodium Chloride 0.9% 500 ml 500 ml @ 167 mls/hr IVPB Q12H [facility] Rx#: [id number] Intake, IV Titration 10.917 183.416 Amount Diltiazem 125 mg In 10.917 114.083 Sodium Chloride 0.9% 100 ml @ Per Protocol IV .Q0M [facility] Rx#:[id number] Heparin Sod,Pork in 0.45% 69.333 NaCl 25,000 unit In 0.45 % NaCl 1 250ml.bag @ 8. 772 UNITS/KG/HR 10 mls/hr IV .Q24H [facility] Rx#: [id number] Oral 380 Output: Urine 3730 745 30 Other: Voiding Method Indwelling Catheter Indwelling Catheter - Exam Obese, in mild degree of respiratory distress, the patient is currently on 8 L of oxygen by nasal cannula. She is not using excessive muscle breathing. Head exam was generally normal. There was no scleral icterus or corneal arcus. Mucous membranes were moist. Neck was supple and without jugular venous distension, thyromegaly, or carotid bruits. Carotids were easily palpable bilaterally. There was no adenopathy. Mucous membranes are dry and the patient is a Mallampati class IV Lungs sounds are diminished and the patient is diffuse expiratory wheezes throughout the lung parish bilaterally Heart sounds are irregular consistent with atrial fibrillation. There is a thoracotomy scar over the anterior part of the chest. The patient also has aor tic valve and mitral valve clicks with some systolic ejection murmur grade 3/6 heard throughout the precordium mainly in the left lateral sternal border. Abdominal exam revealed normal bowel sounds. The abdomen was soft, non-tender, and without masses, organomegaly, or appreciable enlargement of the abdominal aorta. Extremities revealed +1 edema and there is no signs of clubbing Examination of the skin revealed no evidence of significant rashes, suspicious appearing nevi or other concerning lesions. Neurologically, the patient is awake and alert and the patient does not have any focal neurological deficit. Cranial nerves are essentially intact. - Labs CBC & Chem 7: 05/31/21 02:39 05/31/21 02:39 Labs: Abnormal Lab Results - Last 24 Hours (Table) 05/30/21 05/30/21 05/30/21 Range/Units 11:40 12:44 12:44 WBC 13.6 H (3.8-10.6) k/uL RBC 3.78 L (3.80-5.40) m/uL MCV 100.5 H (80.0-100.0) fL MCHC 30.8 L (31.0-37.0) g/dL Neutrophils # 12.2 H (1.3-7.7) k/uL Lymphocytes # 0.5 L (1.0-4.8) k/uL PT 64.0 H (9.0-12.0) sec INR 6.6 H* (<1.2) APTT 31.7 H (22.0-30.0) sec Chloride (98-107) mmol/L Carbon Dioxide (22-30) mmol/L BUN (7-17) mg/dL Glucose (74-99) mg/dL POC Glucose (mg/dL) 178 H (75-99) mg/dL AST (14-36) U/L ALT (4-34) U/L CK-MB (CK-2) (0.0-2.4) ng/mL Troponin I (0.000-0.034) ng/mL Total Protein (6.3-8.2) g/dL TSH (0.465-4.680) mIU/L 05/30/21 05/30/21 05/30/21 Range/Units 12:44 15:12 15:12 WBC (3.8-10.6) k/uL RBC (3.80-5.40) m/uL MCV (80.0-100.0) fL MCHC (31.0-37.0) g/dL Neutrophils # (1.3-7.7) k/uL Lymphocytes # (1.0-4.8) k/uL PT (9.0-12.0) sec INR (<1.2) APTT (22.0-30.0) sec Chloride 97 L (98-107) mmol/L Carbon Dioxide 37 H (22-30) mmol/L BUN 22 H (7-17) mg/dL Glucose 140 H (74-99) mg/dL POC Glucose (mg/dL) (75-99) mg/dL AST 42 H (14-36) U/L ALT 56 H (4-34) U/L CK-MB (CK-2) 3.1 H (0.0-2.4) ng/mL Troponin I (0.000-0.034) ng/mL Total Protein (6.3-8.2) g/dL TSH 0.048 L (0.465-4.680) mIU/L 05/30/21 05/30/21 05/30/21 Range/Units 17:13 19:53 20:33 WBC (3.8-10.6) k/uL RBC (3.80-5.40) m/uL MCV (80.0-100.0) fL MCHC (31.0-37.0) g/dL Neutrophils # (1.3-7.7) k/uL Lymphocytes # (1.0-4.8) k/uL PT (9.0-12.0) sec INR (<1.2) APTT 68.4 H (22.0-30.0) sec Chloride (98-107) mmol/L Carbon Dioxide (22-30) mmol/L BUN (7-17) mg/dL Glucose (74-99) mg/dL POC Glucose (mg/dL) 207 H 138 H (75-99) mg/dL AST (14-36) U/L ALT (4-34) U/L CK-MB (CK-2) (0.0-2.4) ng/mL Troponin I (0.000-0.034) ng/mL Total Protein (6.3-8.2) g/dL TSH (0.465-4.680) mIU/L 05/31/21 05/31/21 05/31/21 Range/Units 02:39 02:39 02:39 WBC 12.2 H (3.8-10.6) k/uL RBC 3.73 L (3.80-5.40) m/uL MCV (80.0-100.0) fL MCHC (31.0-37.0) g/dL Neutrophils # 10.6 H (1.3-7.7) k/uL Lymphocytes # 0.7 L (1.0-4.8) k/uL PT (9.0-12.0) sec INR (<1.2) APTT (22.0-30.0) sec Chloride 94 L (98-107) mmol/L Carbon Dioxide 40 H (22-30) mmol/L BUN 27 H (7-17) mg/dL Glucose 148 H (74-99) mg/dL POC Glucose (mg/dL) (75-99) mg/dL AST 37 H (14-36) U/L ALT 53 H (4-34) U/L CK-MB (CK-2) (0.0-2.4) ng/mL Troponin I 0.035 H* (0.000-0.034) ng/mL Total Protein 6.2 L (6.3-8.2) g/dL TSH (0.465-4.680) mIU/L 05/31/21 05/31/21 Range/Units 02:39 06:45 WBC (3.8-10.6) k/uL RBC (3.80-5.40) m/uL MCV (80.0-100.0) fL MCHC (31.0-37.0) g/dL Neutrophils # (1.3-7.7) k/uL Lymphocytes # (1.0-4.8) k/uL PT 44.3 H (9.0-12.0) sec INR 4.6 H (<1.2) APTT 63.6 H (22.0-30.0) sec Chloride (98-107) mmol/L Carbon Dioxide (22-30) mmol/L BUN (7-17) mg/dL Glucose (74-99) mg/dL POC Glucose (mg/dL) 136 H (75-99) mg/dL AST (14-36) U/L ALT (4-34) U/L CK-MB (CK-2) (0.0-2.4) ng/mL Troponin I (0.000-0.034) ng/mL Total Protein (6.3-8.2) g/dL TSH (0.465-4.680) mIU/L Assessment and Plan Plan: 1 acute COPD exacerbation with second and shortness of breath. Chest x-ray free of any acute pulmonary infiltrates. Rule out underlying taken bronchitis. 2 atrial fibrillation/flutter with rapid ventricular response currently on a Cardizem drip for rate control, INR was supratherapeutic , still on Cardizem drip at 15 mg an hour 3 shortness of breath secondary to above 4 acute hypoxic respiratory failure secondary to above. No signs of any congestion heart failure. ProBNP was elevated. No evidence of any pneumonia. The patient has been vaccinated for COVID-19. CT angiogram was completed and there is no evidence of pneumonia. There is some atelectatic changes in lung bases. His background COPD. 5 history of coronary artery disease with previous coronary artery bypass surgery 6 history of valvular disease and the patient has undergone mitral and aortic valve replacement, mechanical valve. Recent echo cardiac exam shows normal functionality of the mitral and aortic valve. The patient has a preserved LV function with normal ejection fraction and secondary pulmonary hypertension with a PA pressure of around 52 mmHg 7 spiculated right upper lobe mass, 2 cm, we'll need to be worked up on outpatient basis. No mediastinal adenopathy. 8 obesity with a BMI of 46 9 features of obstructive sleep apnea. 10 hyperlipidemia 11 COPD maintained on Breo Ellipta on outpatient basis 12 hypothyroidism 13 hypertension Plan Weaned off FiO2, currently on 8 L continue DuoNeb and the treatment [id number] IV Solu-Medrol 60 mg every 6 hours Continue Perforomist and Pulmicort nebulized treatments twice a day Continue IV Lasix 40 mg every 24 hours IV Cardizem drip for rate control, and start the patient on metoprolol 50 mg by mouth twice a day DC IV heparin and no Coumadin for today Continue the rest of the treatment Right upper lobe spiculated nodule was noted. This is a solitary pulmonary nodule. Needs to be worked up on outpatient basis. No intervention at this point in time. We'll continue to follow. Keep the patient ICU for now.
[2021-05-31] MEDS ORDERED: CEFEPIME 1 GM in SODIUM CHLORIDE 0.9% 50 ML IVPB SCH (09:00)
[2021-05-31] MEDS ORDERED: PANTOPRAZOLE 40 MG TABLET PO SCH (09:00)
[2021-05-31] MEDS ORDERED: METOPROLOL TARTRATE 50 MG TAB PO SCH (09:00)
[2021-05-31] MEDS: DILTIAZEM 125 MG in SODIUM CHLORIDE 0.9% 100 ML IV SCH ×2 (09:07→20:58)
[2021-05-31] MEDS: VANCOMYCIN 1,750 MG in SODIUM CHLORIDE 0.9% 500 ML 500 ML IVPB SCH (09:12)
[2021-05-31] MEDS: ASPIRIN 81 MG PO SCH (09:13)
[2021-05-31] MEDS: NYSTATIN 100,000 UNIT/ML SUSP 500,000 UNIT/5 ML CUP PO SCH ×4 (09:13→21:01)
[2021-05-31] MEDS: FUROSEMIDE 10 MG/ML 4 ML VIAL IV SCH (09:14)
[2021-05-31] MEDS: VENLAFAXINE HCL 75 MG TAB PO SCH ×2 (09:14→21:01)
[2021-05-31] MEDS: ARIPiprazole 10 MG TAB PO SCH (09:14)
[2021-05-31] MEDS: NON FORMULARY DRUG (Mirabegron [Myrbetriq] 25 MG Tablet) PO SCH (09:59)
[2021-05-31 11:13] LABS: Glucose,Whole Blood 153 mg/dL (75-99)
[2021-05-31 12:11] LABS: Glucose,Whole Blood 123 mg/dL (75-99)
[2021-05-31] MEDS: AZITHROMYCIN 250 MG TAB PO SCH (12:20)
--- NOTE | 2021-05-31 15:31 | P.PN ---
Subjective Progress Note Date: 05/31/21 Principal diagnosis: Permanent atrial fibrillation/(or heart disease The patient is a 14-year-old female patient with history of valvular heart disease with underwent aortic and mitral valve replacement using mechanical bioprosthesis as well as permanent atrial fibrillation was admitted to the hospital with acute hypoxic respiratory failure and she was diagnosed with acute exacerbation of COPD as well as a component of heart failure. She was seen this morning he she is feeling better beach she has been diuresing well. She is on Lasix 40 mg IV daily. She is on Cardizem IV which has decreased from 10-5. Metoprolol tartrate was started today. She underwent an echocardiogram in the facility she came from and that showed normal LV function was normally functioning aortic and mitral mechanical post the cysts. She is on anticoagulation was called and an INR today supratherapeutic. Objective - Vital Signs Vital signs: Vital Signs Temp 97.5 F L 05/31/21 12:00 Pulse 99 05/31/21 14:00 Resp 18 05/31/21 14:00 BP 115/76 05/31/21 14:00 Pulse Ox 94 L 05/31/21 14:00 Intake & Output 05/30/21 05/31/21 05/31/21 18:59 06:59 18:59 Intake Total 281.764 6988.416 1004.5 Output Total 3730 745 1410 Balance -3629.083 544.416 -405.5 Weight 114 kg 110.9 kg Intake: IV 90 726 850 0.9 Normal Saline @ 5mL/ 25 110 65 hr - KVO Cefepime 1 gm In Sodium 100 200 Chloride 0.9% 50 ml @ 100 mls/hr IVPB ONCE@2100 [facility] Rx#:[id number] Diltiazem 125 mg In 65 15 85 Sodium Chloride 0.9% 100 ml @ Per Protocol IV .Q0M [facility] Rx#:[id number] Vancomycin 1,750 mg In 501 500 Sodium Chloride 0.9% 500 ml 500 ml @ 167 mls/hr IVPB Q12H [facility] Rx#: [id number] Intake, IV Titration 183.416 154.5 Amount Diltiazem 125 mg In 114.083 154.5 Sodium Chloride 0.9% 100 ml @ Per Protocol IV .Q0M [facility] Rx#:[id number] Heparin Sod,Pork in 0.45% 69.333 NaCl 25,000 unit In 0.45 % NaCl 1 250ml.bag @ 8. 772 UNITS/KG/HR 10 mls/hr IV .Q24H [facility] Rx#: [id number] Oral 380 Output: Urine 3730 745 1410 Other: Voiding Method Indwelling Catheter Indwelling Catheter Indwelling Catheter # Voids 2 - Constitutional General appearance: Present: no acute distress - Respiratory Respiratory: bilateral: diminished - Cardiovascular Rhythm: irregularly irregular - Labs CBC & Chem 7: 05/31/21 02:39 05/31/21 02:39 Labs: Abnormal Lab Results - Last 24 Hours (Table) 05/30/21 05/30/21 05/30/21 Range/Units 15:12 15:12 17:13 WBC (3.8-10.6) k/uL RBC (3.80-5.40) m/uL Neutrophils # (1.3-7.7) k/uL Lymphocytes # (1.0-4.8) k/uL PT (9.0-12.0) sec INR (<1.2) APTT (22.0-30.0) sec Chloride (98-107) mmol/L Carbon Dioxide (22-30) mmol/L BUN (7-17) mg/dL Glucose (74-99) mg/dL POC Glucose (mg/dL) 207 H (75-99) mg/dL AST (14-36) U/L ALT (4-34) U/L CK-MB (CK-2) 3.1 H (0.0-2.4) ng/mL Troponin I (0.000-0.034) ng/mL Total Protein (6.3-8.2) g/dL TSH 0.048 L (0.465-4.680) mIU/L 05/30/21 05/30/21 05/31/21 Range/Units 19:53 20:33 02:39 WBC (3.8-10.6) k/uL RBC (3.80-5.40) m/uL Neutrophils # (1.3-7.7) k/uL Lymphocytes # (1.0-4.8) k/uL PT (9.0-12.0) sec INR (<1.2) APTT 68.4 H (22.0-30.0) sec Chloride 94 L (98-107) mmol/L Carbon Dioxide 40 H (22-30) mmol/L BUN 27 H (7-17) mg/dL Glucose 148 H (74-99) mg/dL POC Glucose (mg/dL) 138 H (75-99) mg/dL AST 37 H (14-36) U/L ALT 53 H (4-34) U/L CK-MB (CK-2) (0.0-2.4) ng/mL Troponin I (0.000-0.034) ng/mL Total Protein 6.2 L (6.3-8.2) g/dL TSH (0.465-4.680) mIU/L 05/31/21 05/31/21 05/31/21 Range/Units 02:39 02:39 02:39 WBC 12.2 H (3.8-10.6) k/uL RBC 3.73 L (3.80-5.40) m/uL Neutrophils # 10.6 H (1.3-7.7) k/uL Lymphocytes # 0.7 L (1.0-4.8) k/uL PT 44.3 H (9.0-12.0) sec INR 4.6 H (<1.2) APTT 63.6 H (22.0-30.0) sec Chloride (98-107) mmol/L Carbon Dioxide (22-30) mmol/L BUN (7-17) mg/dL Glucose (74-99) mg/dL POC Glucose (mg/dL) (75-99) mg/dL AST (14-36) U/L ALT (4-34) U/L CK-MB (CK-2) (0.0-2.4) ng/mL Troponin I 0.035 H* (0.000-0.034) ng/mL Total Protein (6.3-8.2) g/dL TSH (0.465-4.680) mIU/L 05/31/21 05/31/21 05/31/21 Range/Units 06:45 11:11 11:51 WBC (3.8-10.6) k/uL RBC (3.80-5.40) m/uL Neutrophils # (1.3-7.7) k/uL Lymphocytes # (1.0-4.8) k/uL PT (9.0-12.0) sec INR (<1.2) APTT (22.0-30.0) sec Chloride (98-107) mmol/L Carbon Dioxide (22-30) mmol/L BUN (7-17) mg/dL Glucose (74-99) mg/dL POC Glucose (mg/dL) 136 H 153 H 123 H (75-99) mg/dL AST (14-36) U/L ALT (4-34) U/L CK-MB (CK-2) (0.0-2.4) ng/mL Troponin I (0.000-0.034) ng/mL Total Protein (6.3-8.2) g/dL TSH (0.465-4.680) mIU/L Assessment and Plan Assessment: Assessment #1 acute hypoxic respiratory failure #2 acute exacerbation of COPD #3 probably a component of heart failure related to diastolic dysfunction #4 atrial fibrillation with rapid ventricular response. The patient is known to have permanent atrial fibrillation #5 valvular heart disease and status post mechanical mitral and aortic valve replacement #6 morbid obesity #7 supratherapeutic INR Plan #1 agree about starting the patient on beta emerson #2 the right wean her from Cardizem drip #3 continue IV Lasix for additional 24 hours #4 follow-up with the patient
[2021-05-31 16:14] LABS: Glucose,Whole Blood 113 mg/dL (75-99)
[2021-05-31] MEDS: METOPROLOL TARTRATE 50 MG TAB PO SCH ×2 (17:23→21:00)
[2021-05-31] MEDS ORDERED: WARFARIN 0.5 MG TAB PO ONE (18:00)
--- NOTE | 2021-05-31 19:01 | P.PN ---
Subjective Progress Note Date: 05/31/21 58 years old female who presented with the chief complaints of worsening respiratory failure from outside hospital. Originally she presented at outside hospital for worsening shortness of breath, patient was admitted for respiratory failure due to COPD exacerbation and possible CHF with fluid overload, patient also developed atrial fibrillation with RVR. Patient was started on BiPAP and was started on Cardizem drip outside hospital, I was contacted by physician from outside hospital who mentioned that they do not have ICU at their facility and patient is requiring higher level of care. Patient does have history of previous coronary artery bypass surgery and aortic mitral valve replacement. Patient most recent echocardiogram was done on 05/27/2021 showing EF of 55%, RVSP 52, otherwise no major abnormalities were noted per electronic medical record. Patient was transferred to [facility] for further management given lack of ICU and subspecialty support present where she was present before. Patient was admitted for COPD exacerbation and congestive heart failure exacerb ation to medical ICU Patient seen and evaluated at bedside, today patient does not report any worse beth of his breathing or report any new significant chest pain. Patient remains in no acute distress. Patient questions and concerns addressed at bedside, proper counseling done. Plan discussed with nursing staff. Objective - Vital Signs Vital signs: Vital Signs Temp 97.5 F L 05/31/21 12:00 Pulse 128 H 05/31/21 18:00 Resp 23 05/31/21 18:00 BP 106/61 05/31/21 18:00 Pulse Ox 93 L 05/31/21 18:00 Intake & Output 05/31/21 05/31/21 06/01/21 06:59 18:59 06:59 Intake Total 5135.854 7595.5 Output Total 745 1810 Balance 544.416 -745.5 Weight 110.9 kg Intake: IV 726 910 0.9 Normal Saline @ 5mL/ 110 85 hr - KVO Cefepime 1 gm In Sodium 100 200 Chloride 0.9% 50 ml @ 100 mls/hr IVPB ONCE@2100 [facility] Rx#:[id number] Diltiazem 125 mg In 15 125 Sodium Chloride 0.9% 100 ml @ Per Protocol IV .Q0M [facility] Rx#:[id number] Vancomycin 1,750 mg In 501 500 Sodium Chloride 0.9% 500 ml 500 ml @ 167 mls/hr IVPB Q12H [facility] Rx#: [id number] Intake, IV Titration 183.416 154.5 Amount Diltiazem 125 mg In 114.083 154.5 Sodium Chloride 0.9% 100 ml @ Per Protocol IV .Q0M [facility] Rx#:[id number] Heparin Sod,Pork in 0.45% 69.333 NaCl 25,000 unit In 0.45 % NaCl 1 250ml.bag @ 8. 772 UNITS/KG/HR 10 mls/hr IV .Q24H [facility] Rx#: [id number] Oral 380 Output: Urine 745 1810 Other: Voiding Method Indwelling Catheter Indwelling Catheter # Voids 1 General: non toxic, no acute distress, alert oriented to time place and person Head: atraumatic, normocephalic, symmetric Eyes: no lid lesion], anicteric sclera Mouth: no lip lesion, mucus membranes moist Cardiovascular: S1S2 reg rate and rhythm, no murmur, no gallop Lungs: Diminished breath sounds bilaterally, bilateral lower lobe crackles. Abdominal: soft, nontender to palpation, no guarding, no appreciable orga nomegaly Ext: no gross muscle atrophy, no edema extremities warm to suppose a positive Neuro: Alert oriented to time place and person, exam grossly nonfocal Psych: Mood and affect appropriate, patient not so certain Skin exam: No rashes no jaundice. - Labs CBC & Chem 7: 06/01/21 04:30 06/01/21 04:30 Labs: Abnormal Lab Results - Last 24 Hours (Table) 05/30/21 05/30/21 05/31/21 Range/Units 19:53 20:33 02:39 WBC (3.8-10.6) k/uL RBC (3.80-5.40) m/uL Neutrophils # (1.3-7.7) k/uL Lymphocytes # (1.0-4.8) k/uL PT (9.0-12.0) sec INR (<1.2) APTT 68.4 H (22.0-30.0) sec Chloride 94 L (98-107) mmol/L Carbon Dioxide 40 H (22-30) mmol/L BUN 27 H (7-17) mg/dL Glucose 148 H (74-99) mg/dL POC Glucose (mg/dL) 138 H (75-99) mg/dL AST 37 H (14-36) U/L ALT 53 H (4-34) U/L Troponin I (0.000-0.034) ng/mL Total Protein 6.2 L (6.3-8.2) g/dL 05/31/21 05/31/21 05/31/21 Range/Units 02:39 02:39 02:39 WBC 12.2 H (3.8-10.6) k/uL RBC 3.73 L (3.80-5.40) m/uL Neutrophils # 10.6 H (1.3-7.7) k/uL Lymphocytes # 0.7 L (1.0-4.8) k/uL PT 44.3 H (9.0-12.0) sec INR 4.6 H (<1.2) APTT 63.6 H (22.0-30.0) sec Chloride (98-107) mmol/L Carbon Dioxide (22-30) mmol/L BUN (7-17) mg/dL Glucose (74-99) mg/dL POC Glucose (mg/dL) (75-99) mg/dL AST (14-36) U/L ALT (4-34) U/L Troponin I 0.035 H* (0.000-0.034) ng/mL Total Protein (6.3-8.2) g/dL 05/31/21 05/31/21 05/31/21 Range/Units 06:45 11:11 11:51 WBC (3.8-10.6) k/uL RBC (3.80-5.40) m/uL Neutrophils # (1.3-7.7) k/uL Lymphocytes # (1.0-4.8) k/uL PT (9.0-12.0) sec INR (<1.2) APTT (22.0-30.0) sec Chloride (98-107) mmol/L Carbon Dioxide (22-30) mmol/L BUN (7-17) mg/dL Glucose (74-99) mg/dL POC Glucose (mg/dL) 136 H 153 H 123 H (75-99) mg/dL AST (14-36) U/L ALT (4-34) U/L Troponin I (0.000-0.034) ng/mL Total Protein (6.3-8.2) g/dL 05/31/21 Range/Units 16:12 WBC (3.8-10.6) k/uL RBC (3.80-5.40) m/uL Neutrophils # (1.3-7.7) k/uL Lymphocytes # (1.0-4.8) k/uL PT (9.0-12.0) sec INR (<1.2) APTT (22.0-30.0) sec Chloride (98-107) mmol/L Carbon Dioxide (22-30) mmol/L BUN (7-17) mg/dL Glucose (74-99) mg/dL POC Glucose (mg/dL) 113 H (75-99) mg/dL AST (14-36) U/L ALT (4-34) U/L Troponin I (0.000-0.034) ng/mL Total Protein (6.3-8.2) g/dL Assessment and Plan Assessment: Acute hypoxic respiratory failure Likely multifactorial, due to COPD exacerbation and congestive heart failure exacerbation, likely acute diastolic congestive heart failure, and this revealed atrial fibrillation with RVR Solu-Medrol 60 mg every 8 hours IV Careful diuresis and management of atrial fibrillation with RVR, status post Cardizem drip currently on oral AV annie blocking agent and heart rate well controlled. Consulting cardiology and pulmonary medicine. Acute COPD exacerbation, cannot exclude hospital-acquired pneumonia Continue Solu-Medrol, broad-spectrum antibiotic discontinued CT negative, will continue azithromycin Bronchodilator treatment continue oxygen support and BiPAP as needed Pulmonary medicine following Atrial fibrillation with RVR Patient at home was on Coumadin for her history of mechanical cardiac valve Echocardiogram recently done as mentioned above EF 55% RVSP 52 status post Cardizem drip currently on oral AV annie blocking agent and heart rate well controlled. Coumadin for AC Cardiology following Acute on chronic diastolic congestive heart failure Likely in the setting of above echocardiogram results as mentioned above IV diuresis with careful monitoring of basic medical profile renal function on a daily basis Continue cardiac telemetry. Cardiology following History of coronary artery disease status post CABG and history of valvular heart disease status post mitral and aortic valve replacement with mechanical valve Continue anticoagulation as mentioned above Cardiology following Obesity with obstructive sleep apnea, BMI of 46 Continue BiPAP Patient will benefit from outpatient sleep study. Hyperlipidemia Continue statin DVT prophylaxis: Coumadin CODE STATUS: Full code Discharge plan: Likely in 3-4 days pending hospital course and clinical improvement and pending workup.
[2021-05-31 20:13] LABS: Glucose,Whole Blood 167 mg/dL (75-99)
[2021-05-31] MEDS: ATORVASTATIN 40 MG TAB PO SCH (21:00)
[2021-05-31] MEDS: SENNOSIDES 8.6 MG TAB PO SCH (21:00)
[2021-06-01] MEDS: IPRATROPIUM-ALBUTEROL 3 ML NEB INHALATION SCH ×6 (00:53→20:28)
[2021-06-01 04:58] LABS: Basophils # (A) 0.1 k/uL (0-0.2); Basophils % (A) 1 %; Eosinophils # (A) 0.1 k/uL (0-0.7); Eosinophils % (A) 1 %; HCT 39.5 % (34.0-46.0); HGB 12.4 gm/dL (11.4-16.0); Hypochromasia Slight; Lymphocytes # (A) 0.7 k/uL (1.0-4.8); Lymphocytes % (A) 7 %; MCH 31.3 pg (25.0-35.0); MCHC 31.4 g/dL (31.0-37.0); MCV 99.8 fL (80.0-100.0); Mean Platelet Volume 7.8; Monocytes # (A) 0.7 k/uL (0-1.0); Monocytes % (A) 6 %; Neutrophils # (A) 9.4 k/uL (1.3-7.7); Neutrophils % (A) 85 %; Platelet Count 223 k/uL (150-450); RBC 3.96 m/uL (3.80-5.40); RDW 13.5 % (11.5-15.5)
[2021-06-01 05:12] LABS: INR 2.3 (<1.2); Partial Thromboplastin Time 27.1 sec (22.0-30.0); Prothrombin Time 22.2 sec (9.0-12.0)
[2021-06-01 05:43] LABS: African American GFR (CKD) >90 (>60 ml/min/1.73 sqM); Blood Urea Nitrogen 32 mg/dL (7-17); Calcium 9.4 mg/dL (8.4-10.2); Chloride 92 mmol/L (98-107); Glucose 123 mg/dL (74-99); Non-African American GFR(CKD) >90 (>60 ml/min/1.73 sqM); Potassium 4.5 mmol/L (3.5-5.1); Sodium 137 mmol/L (137-145)
[2021-06-01 05:50] LABS: Anion Gap 6 mmol/L; Carbon Dioxide 39 mmol/L (22-30)
[2021-06-01 06:41] LABS: Glucose,Whole Blood 158 mg/dL (75-99)
[2021-06-01] MEDS: methylPREDNISolone SOD SUCCI 125 MG/2 ML VIAL IV SCH ×3 (06:47→17:57)
[2021-06-01] MEDS: PANTOPRAZOLE 40 MG TABLET PO SCH (06:47)
[2021-06-01] MEDS: ALPRAZolam 0.25 MG TAB PO PRN (06:47)
[2021-06-01] MEDS: LEVOTHYROXINE 25 MCG TAB PO SCH (06:47)
[2021-06-01] MEDS: INSULIN ASPART (NovoLOG) 100 UNIT/ML VIAL SQ SCH ×4 (06:48→21:46)
[2021-06-01] MEDS: BUDESONIDE 1 MG/2 ML NEBU INHALATION SCH ×2 (07:20→20:28)
[2021-06-01] MEDS: FORMOTEROL FUMARATE 20 MCG/2 ML NEBU INHALATION SCH ×2 (07:20→20:28)
--- NOTE | 2021-06-01 07:34 | P.PN ---
Subjective Progress Note Date: 06/01/21 Principal diagnosis: 58-year-old female patient was transferred to us from an outside hospital for worsening shortness of breath and acute respiratory distress. The patient prese nted to her primary care physician with worsening shortness of breath associated with some increased dyspnea and wheeze. She is known to have COPD and she quit smoking back in December 2020. She is smoking up to 2 pack of cigarettes a day and she did that since the age of 11. She had increased cough and chest tightness along with some light yellow sputum production. Her cough got worse as the patient was having increased wheezing and shortness of breath and for that reason she presented to her physician. She was referred to the emergency department in the ED the patient was found to have a pulse ox in the low 80s. She wason 2 L about 2 by nasal cannula. She was also in atrial fibrillation with rapid ventricular response and she was started on a Cardizem drip. She was quite short of breath. Chest x-ray showed post thoracotomy changes. Cardiac enzymes were negative. INR was at 1.6. Patient was transferred to our hospital for further care. At the time of arrival to the ICU, she was already on BiPAP at a pressure of 10/5 cm of water with an FiO2 of 40%. She was feeling better. Her breathing was less labored. She denied having any chest pain. She was started on a Cardizem drip for heart rate was under better control. I reviewed the blood work that was sent over from the other hospital and the patient had a sodium level of 136, potassium of 4.5, serum bicarbonate 35, glucose of 150, AST of 56, creatinine of 0.7, ALT of 61, proBNP level of 3870, white cell count was at 13.8 with hemoglobin of 12.4. Chest x-ray showed "sternotomy with cardiac valve replacement. Note that the patient has undergone previous coronary artery bypass surgery and aortic/mitral valve replacement. Her EKG was showing A. fib/flutter and in our ICU, she was started in the front the rhythm with variable conduction response. Her most recent prwas done on 05/27/2021 and the patient was found to have a normal ejection fraction of 55%, right ventricular systolic pressure was estimated to be 52. There was severe increase in left atrial diameter, normal functioning mechanical mitral valve and normal functioning mechanical aortic valve. She had moderate degree of tricuspid regurgitation. At a time of my evaluation, the patient was awake and alert. She was feeling better. She was less short of breath. She wanted to come off the BiPAP mask. She was on IV heparin. She was also on Cardizem drip running at 5 mg an hour. She was still in atrial fibrillation/flutter. She was started on DuoNeb nebulized treatments around the clock. She was given also dose of Bumex 2 mg IV in addition to IV Solu-Medrol prior to her transfer here to our hospital through the [facility] catheter was inserted. On today's evaluation of 05/31/2021, the patient is off the BiPAP and currently she is on oxygen at 8 L per minute. Note that overnight, she was using the BiPAP on and off as the patient was desaturating. As mentioned earlier, the patient was seen in consultation. She was a case of an acute COPD exacerbation and she was acutely bronchospastic and wheezy. She also presented with atrial fibrillation with rapid ventricular response associated with a Cardizem drip. She was already on long-term and coagulation with warfarin and she was supratherapeutic.. As part of further workup, a CT angiogram was done yesterday and there was no evidence of any pulmonary embolism. There was a spiculated nodule in the right upper lobe, suspicious for malignancy and this was measuring around 2 cm in size. Patchy infiltrates/atelectasis lower lobes bilaterally. The pulmonary arteries were patent. No evidence of any embolism. No evidence of any mediastinal lymphadenopathy. The patient also has background emphysema. For now, the patient presented with bronchodilators and the patient on DuoNeb nebulized treatments around the clock. She is on Cardizem drip at 15 mg an hour and her atrial fibrillation and her rate was under better control. We'll morning activities, her heart rate up again. She is free of any chest pain. She remains on IV cefepime. The patient is being diuresis with IV Lasix once a day 40 mg IV push. Morning INR is at 4.6 with a PT of 44.3. Serum bicarb is at 40. BUN is at 27 with a creatinine of 0.6. Troponins are 0.01 and 0.03 respectively, free T4 was at 1.5, UA was negative. White is at 4.2 with a hemoglobin of 11.9. 06/01/2021 the patient continues to improve and the patient is feeling better, less shortness of breath compared to yesterday. She is currently on 5 L of oxygen by nasal cannula. She did not use the BiPAP overnight. When at rest and during sleep, H of ablations under better control. When awake on a chair, heart rate goes up to the 140s max. She remains on Cardizem drip at 10 mg an hour. Metoprolol dose has been modified to 100 mg 3 times a day. The same time the patient's INR is therapeutic with a INR of 2.3 on today's evaluation. Serum bicarbonate 39. Normal renal function. White cell count 11. Denies having any chest pain. Overall fluid balance has been -3 L over the past 24 hours. No angina. No palpitations. No significant swelling in lower extremities. She remains on Lasix 40 mg IV every 24 hours. She remains on a Medrol 60 mg every 6 hours. No other significant events overnight. She is off the BiPAP for now. Objective - Vital Signs Vital signs: Vital Signs Temp 98.1 F 06/01/21 03:00 Pulse 142 H 06/01/21 07:29 Resp 18 06/01/21 07:29 BP 122/84 06/01/21 07:00 Pulse Ox 92 L 06/01/21 07:20 Intake & Output 05/31/21 06/01/21 06/01/21 18:59 06:59 18:59 Intake Total 1064.5 947.667 Output Total 1810 Balance -745.5 947.667 Weight 110.4 kg Intake: IV 910 110 0.9 Normal Saline @ 5mL/ 85 110 hr - KVO Cefepime 1 gm In Sodium 200 Chloride 0.9% 50 ml @ 100 mls/hr IVPB ONCE@2100 [facility] Rx#:[id number] Diltiazem 125 mg In 125 Sodium Chloride 0.9% 100 ml @ Per Protocol IV .Q0M [facility] Rx#:[id number] Vancomycin 1,750 mg In 500 Sodium Chloride 0.9% 500 ml 500 ml @ 167 mls/hr IVPB Q12H [facility] Rx#: [id number] Intake, IV Titration 154.5 197.667 Amount Diltiazem 125 mg In 154.5 197.667 Sodium Chloride 0.9% 100 ml @ Per Protocol IV .Q0M [facility] Rx#:[id number] Oral 640 Output: Urine 1810 Other: Voiding Method Indwelling Catheter External Catheter # Voids 1 1 - Exam Obese, in mild degree of respiratory distress, the patient is currently on5L of oxygen by nasal cannula. She is not using excessive muscle breathing. Head exam was generally normal. There was no scleral icterus or corneal arcus. Mucous membranes were moist. Neck was supple and without jugular venous distension, thyromegaly, or carotid bruits. Carotids were easily palpable bilaterally. There was no adenopathy. Mucous membranes are dry and the patient is a Mallampati class IV Lungs sounds are diminished and the patient is diffuse expiratory wheezes throughout the lung parish bilaterally Heart sounds are irregular consistent with atrial fibrillation. There is a thoracotomy scar over the anterior part of the chest. The patient also has aortic valve and mitral valve clicks with some systolic ejection murmur grade 3/6 heard throughout the precordium mainly in the left lateral sternal border. Abdominal exam revealed normal bowel sounds. The abdomen was soft, non-tender, and without masses, organomegaly, or appreciable enlargement of the abdominal aorta. Extremities revealed +1 edema and there is no signs of clubbing Examination of the skin revealed no evidence of significant rashes, suspicious appearing nevi or other concerning lesions. Neurologically, the patient is awake and alert and the patient does not have any focal neurological deficit. Cranial nerves are essentially intact. - Labs CBC & Chem 7: 06/01/21 04:30 06/01/21 04:30 Labs: Abnormal Lab Results - Last 24 Hours (Table) 05/31/21 05/31/21 05/31/21 Range/Units 11:11 11:51 16:12 WBC (3.8-10.6) k/uL Neutrophils # (1.3-7.7) k/uL Lymphocytes # (1.0-4.8) k/uL PT (9.0-12.0) sec INR (<1.2) Chloride (98-107) mmol/L Carbon Dioxide (22-30) mmol/L BUN (7-17) mg/dL Glucose (74-99) mg/dL POC Glucose (mg/dL) 153 H 123 H 113 H (75-99) mg/dL 05/31/21 06/01/21 06/01/21 Range/Units 20:12 04:30 04:30 WBC (3.8-10.6) k/uL Neutrophils # (1.3-7.7) k/uL Lymphocytes # (1.0-4.8) k/uL PT 22.2 H (9.0-12.0) sec INR 2.3 H (<1.2) Chloride 92 L (98-107) mmol/L Carbon Dioxide 39 H (22-30) mmol/L BUN 32 H (7-17) mg/dL Glucose 123 H (74-99) mg/dL POC Glucose (mg/dL) 167 H (75-99) mg/dL 06/01/21 06/01/21 Range/Units 04:30 06:40 WBC 11.0 H (3.8-10.6) k/uL Neutrophils # 9.4 H (1.3-7.7) k/uL Lymphocytes # 0.7 L (1.0-4.8) k/uL PT (9.0-12.0) sec INR (<1.2) Chloride (98-107) mmol/L Carbon Dioxide (22-30) mmol/L BUN (7-17) mg/dL Glucose (74-99) mg/dL POC Glucose (mg/dL) 158 H (75-99) mg/dL Assessment and Plan Plan: 1 acute COPD exacerbation with second and shortness of breath. Chest x-ray free of any acute pulmonary infiltrates. Clinically, the patient is improving and the patient is less bronchospastic and wheezy 2 atrial fibrillation/flutter with rapid ventricular response currently on a Cardizem drip for rate control, INR was supratherapeutic, currently therapeutic at 2.3. Cardiology opted to treat her also with a therapeutic dose of Lovenox. The patient remains on Cardizem at 10 mg an hour and metoprolol doses were modified to 100 mg 3 times a day 3 shortness of breath secondary to above, improving 4 acute hypoxic respiratory failure secondary to above. No signs of any congestion heart failure. ProBNP was elevated. No evidence of any pneumonia. The patient has been vaccinated for COVID-19. CT angiogram was completed and there is no evidence of pneumonia. There is some atelectatic changes in lung bases. His background COPD. oxygenation is improved and the patient is currently on 5 L 5 history of coronary artery disease with previous coronary artery bypass surgery 6 history of valvular disease and the patient has undergone mitral and aortic valve replacement, mechanical valve. Recent echo cardiac exam shows normal functionality of the mitral and aortic valve. The patient has a preserved LV function with normal ejection fraction and secondary pulmonary hypertension with a PA pressure of around 52 mmHg 7 spiculated right upper lobe mass, 2 cm, we'll need to be worked up on outpatient basis. No mediastinal adenopathy. 8 obesity with a BMI of 46 9 features of obstructive sleep apnea. 10 hyperlipidemia 11 COPD maintained on Breo Ellipta on outpatient basis 12 hypothyroidism 13 hypertension Plan Weaned off FiO2, currently on 5 L continue DuoNeb and the treatment [id number] IV Solu-Medrol 60 mg every 6 hours Continue Perforomist and Pulmicort nebulized treatments twice a day Continue IV Lasix 40 mg every 24 hours, she is a negative fluid balance of at least 3 L IV Cardizem drip for rate control, and start the patient on metoprolol 100 mg by mouth 3 times a day Suggest stopping the Lovenox as long as the patient's PT/INR is therapeutic Continue the rest of the treatment Right upper lobe spiculated nodule was noted. This is a solitary pulmonary nodule. Needs to be worked up on outpatient basis. No intervention at this point in time. We'll continue to follow. Keep the patient ICU for now.
--- NOTE | 2021-06-01 07:34 | P.PN ---
Subjective Progress Note Date: 06/01/21 Principal diagnosis: Permanent atrial fibrillation/(or heart disease The patient is a 14-year-old female patient with history of valvular heart disease with underwent aortic and mitral valve replacement using mechanical bioprosthesis as well as atrial fibrillation (unknown at this point if it is paroxysmal atrial fibrillation versus persistent versus permanent ) was admitted to the hospital with acute hypoxic respiratory failure and she was diagnosed with acute exacerbation of COPD as well as a component of heart failure. The patient was seen this morning. Clinically she is looking better and she is feeling better indeterminable shortness of breath. On examination she does have clear breathing sounds bilaterally. She denies any symptoms of chest pain or chest discomfort. She continues to be in atrial fibrillation with heart rate around 130 beats per minutes. Currently she is on metoprolol which I'm going to increase. She is on Coumadin for anticoagulation and INR today is 2.3. Giving her mechanical prosthesis in mitral and aortic position, I advised the INR to be around 3. With that being said I'm going to start the patient on Lovenox until we get therapeutic INR on her. No chest x-ray from today. Her blood work results were reviewed. Please note that the patient did have an echo was performed recently from the facility she came from and that showed according to the report normal left ventricular systolic function with normally functioning aortic and mitral mechanical prosthesis. Objective - Vital Signs Vital signs: Vital Signs Temp 98.1 F 06/01/21 03:00 Pulse 142 H 06/01/21 07:29 Resp 18 06/01/21 07:29 BP 121/95 06/01/21 06:00 Pulse Ox 92 L 06/01/21 07:20 Intake & Output 05/31/21 06/01/21 06/01/21 18:59 06:59 18:59 Intake Total 1064.5 947.667 Output Total 1810 Balance -745.5 947.667 Weight 110.4 kg Intake: IV 910 110 0.9 Normal Saline @ 5mL/ 85 110 hr - KVO Cefepime 1 gm In Sodium 200 Chloride 0.9% 50 ml @ 100 mls/hr IVPB ONCE@2100 [facility] Rx#:[id number] Diltiazem 125 mg In 125 Sodium Chloride 0.9% 100 ml @ Per Protocol IV .Q0M [facility] Rx#:[id number] Vancomycin 1,750 mg In 500 Sodium Chloride 0.9% 500 ml 500 ml @ 167 mls/hr IVPB Q12H [facility] Rx#: [id number] Intake, IV Titration 154.5 197.667 Amount Diltiazem 125 mg In 154.5 197.667 Sodium Chloride 0.9% 100 ml @ Per Protocol IV .Q0M [facility] Rx#:[id number] Oral 640 Output: Urine 1810 Other: Voiding Method Indwelling Catheter External Catheter # Voids 1 1 - Constitutional General appearance: Present: no acute distress - Respiratory Respiratory: bilateral: diminished - Cardiovascular Rhythm: irregularly irregular - Labs CBC & Chem 7: 06/01/21 04:30 06/01/21 04:30 Labs: Abnormal Lab Results - Last 24 Hours (Table) 05/31/21 05/31/21 05/31/21 Range/Units 11:11 11:51 16:12 WBC (3.8-10.6) k/uL Neutrophils # (1.3-7.7) k/uL Lymphocytes # (1.0-4.8) k/uL PT (9.0-12.0) sec INR (<1.2) Chloride (98-107) mmol/L Carbon Dioxide (22-30) mmol/L BUN (7-17) mg/dL Glucose (74-99) mg/dL POC Glucose (mg/dL) 153 H 123 H 113 H (75-99) mg/dL 05/31/21 06/01/21 06/01/21 Range/Units 20:12 04:30 04:30 WBC (3.8-10.6) k/uL Neutrophils # (1.3-7.7) k/uL Lymphocytes # (1.0-4.8) k/uL PT 22.2 H (9.0-12.0) sec INR 2.3 H (<1.2) Chloride 92 L (98-107) mmol/L Carbon Dioxide 39 H (22-30) mmol/L BUN 32 H (7-17) mg/dL Glucose 123 H (74-99) mg/dL POC Glucose (mg/dL) 167 H (75-99) mg/dL 06/01/21 06/01/21 Range/Units 04:30 06:40 WBC 11.0 H (3.8-10.6) k/uL Neutrophils # 9.4 H (1.3-7.7) k/uL Lymphocytes # 0.7 L (1.0-4.8) k/uL PT (9.0-12.0) sec INR (<1.2) Chloride (98-107) mmol/L Carbon Dioxide (22-30) mmol/L BUN (7-17) mg/dL Glucose (74-99) mg/dL POC Glucose (mg/dL) 158 H (75-99) mg/dL Assessment and Plan Assessment: Assessment #1 acute hypoxic respiratory failure which has improved #2 acute exacerbation of COPD #3 a component of heart failure related to diastolic dysfunction #4 atrial fibrillation with rapid ventricular response. The heart rate still not under good control #5 valvular heart disease and status post mechanical mitral and aortic valve replacement #6 morbid obesity #7 subtherapeutic INR Plan #1 start the patient on Lovenox to achieve therapeutic INR #2 increase the dose of metoprolol #3 monitor the INR daily #4 the echo from outside hospital was reviewed and showed normal LV function with normally functioning mechanical aortic and mitral prosthesis #5 continue the current dose of Lasix IV #6 follow-up with the patient
[2021-06-01] MEDS: METOPROLOL TARTRATE 50 MG TAB PO SCH ×2 (08:43→21:48)
[2021-06-01] MEDS: AZITHROMYCIN 250 MG TAB PO SCH (08:43)
[2021-06-01] MEDS: ENOXAPARIN 100 MG/ML SYRINGE SQ SCH ×2 (08:44→21:46)
[2021-06-01] MEDS: VENLAFAXINE HCL 75 MG TAB PO SCH ×2 (08:44→21:47)
[2021-06-01] MEDS: FUROSEMIDE 10 MG/ML 4 ML VIAL IV SCH (08:44)
[2021-06-01] MEDS: ARIPiprazole 10 MG TAB PO SCH (08:44)
[2021-06-01] MEDS: ASPIRIN 81 MG PO SCH (08:44)
[2021-06-01] MEDS: NYSTATIN 100,000 UNIT/ML SUSP 500,000 UNIT/5 ML CUP PO SCH ×4 (08:45→21:47)
[2021-06-01] MEDS ORDERED: METOPROLOL TARTRATE 50 MG TAB PO SCH (09:00)
[2021-06-01] MEDS: DILTIAZEM 125 MG in SODIUM CHLORIDE 0.9% 100 ML IV SCH (09:34)
[2021-06-01] MEDS: NON FORMULARY DRUG (Mirabegron [Myrbetriq] 25 MG Tablet) PO SCH (09:36)
[2021-06-01 11:32] LABS: Glucose,Whole Blood 148 mg/dL (75-99)
[2021-06-01] MEDS: MAGNESIUM HYDROXIDE 2,400 MG/10 ML CUP PO PRN (12:34)
[2021-06-01 16:18] LABS: Glucose,Whole Blood 117 mg/dL (75-99)
--- NOTE | 2021-06-01 16:59 | P.PN ---
Subjective Progress Note Date: 06/01/21 58 years old female who presented with the chief complaints of worsening respiratory failure from outside hospital. Originally she presented at outside hospital for worsening shortness of breath, patient was admitted for respiratory failure due to COPD exacerbation and possible CHF with fluid overload, patient also developed atrial fibrillation with RVR. Patient was started on BiPAP and was started on Cardizem drip outside hospital, I was contacted by physician from outside hospital who mentioned that they do not have ICU at their facility and patient is requiring higher level of care. Patient does have history of previous coronary artery bypass surgery and aortic mitral valve replacement. Patient most recent echocardiogram was done on 05/27/2021 showing EF of 55%, RVSP 52, otherwise no major abnormalities were noted per electronic medical record. Patient was transferred to [facility] for further management given lack of ICU and subspecialty support present where she was present before. Patient was admitted for COPD exacerbation and congestive heart failure exacerb ation to medical ICU Patient seen and evaluated at bedside, today patient does not report any worse beth of his breathing or report any new significant chest pain. Patient remains in no acute distress. Patient questions and concerns addressed at bedside, proper counseling done. Plan discussed with nursing staff. Objective - Vital Signs Vital signs: Vital Signs Temp 98.9 F 06/01/21 16:00 Pulse 116 H 06/01/21 16:00 Resp 15 06/01/21 16:30 BP 127/100 06/01/21 16:00 Pulse Ox 92 L 06/01/21 16:00 Intake & Output 05/31/21 06/01/21 06/01/21 18:59 06:59 18:59 Intake Total 1064.5 947.667 244.416 Output Total 1810 1360 Balance -745.5 947.667 -1115.584 Weight 110.4 kg Intake: IV 910 110 55 0.9 Normal Saline @ 5mL/ 85 110 55 hr - KVO Cefepime 1 gm In Sodium 200 Chloride 0.9% 50 ml @ 100 mls/hr IVPB ONCE@2100 [facility] Rx#:[id number] Diltiazem 125 mg In 125 Sodium Chloride 0.9% 100 ml @ Per Protocol IV .Q0M [facility] Rx#:[id number] Vancomycin 1,750 mg In 500 Sodium Chloride 0.9% 500 ml 500 ml @ 167 mls/hr IVPB Q12H [facility] Rx#: [id number] Intake, IV Titration 154.5 197.667 69.416 Amount Diltiazem 125 mg In 154.5 197.667 69.416 Sodium Chloride 0.9% 100 ml @ Per Protocol IV .Q0M [facility] Rx#:[id number] Oral 640 120 Output: Urine 1810 1360 Other: Voiding Method Indwelling Catheter External Catheter Bedside Commode # Voids 1 1 1 General: non toxic, no acute distress, alert oriented to time place and person Head: atraumatic, normocephalic, symmetric Eyes: no lid lesion], anicteric sclera Mouth: no lip lesion, mucus membranes moist Cardiovascular: S1S2 reg rate and rhythm, no murmur, no gallop Lungs: Diminished breath sounds bilaterally, bilateral lower lobe crackles. Abdominal: soft, nontender to palpation, no guarding, no appreciable organomegaly Ext: no gross muscle atrophy, no edema extremities warm to suppose a positive Neuro: Alert oriented to time place and person, exam grossly nonfocal Psych: Mood and affect appropriate, patient not so certain Skin exam: No rashes no jaundice. - Labs CBC & Chem 7: 06/01/21 04:30 06/01/21 04:30 Labs: Abnormal Lab Results - Last 24 Hours (Table) 05/31/21 06/01/21 06/01/21 Range/Units 20:12 04:30 04:30 WBC (3.8-10.6) k/uL Neutrophils # (1.3-7.7) k/uL Lymphocytes # (1.0-4.8) k/uL PT 22.2 H (9.0-12.0) sec INR 2.3 H (<1.2) Chloride 92 L (98-107) mmol/L Carbon Dioxide 39 H (22-30) mmol/L BUN 32 H (7-17) mg/dL Glucose 123 H (74-99) mg/dL POC Glucose (mg/dL) 167 H (75-99) mg/dL 06/01/21 06/01/21 06/01/21 Range/Units 04:30 06:40 11:30 WBC 11.0 H (3.8-10.6) k/uL Neutrophils # 9.4 H (1.3-7.7) k/uL Lymphocytes # 0.7 L (1.0-4.8) k/uL PT (9.0-12.0) sec INR (<1.2) Chloride (98-107) mmol/L Carbon Dioxide (22-30) mmol/L BUN (7-17) mg/dL Glucose (74-99) mg/dL POC Glucose (mg/dL) 158 H 148 H (75-99) mg/dL 06/01/21 Range/Units 16:16 WBC (3.8-10.6) k/uL Neutrophils # (1.3-7.7) k/uL Lymphocytes # (1.0-4.8) k/uL PT (9.0-12.0) sec INR (<1.2) Chloride (98-107) mmol/L Carbon Dioxide (22-30) mmol/L BUN (7-17) mg/dL Glucose (74-99) mg/dL POC Glucose (mg/dL) 117 H (75-99) mg/dL Assessment and Plan Assessment: Acute hypoxic respiratory failure Likely multifactorial, due to COPD exacerbation and congestive heart failure exacerbation, likely acute diastolic congestive heart failure, and this revealed atrial fibrillation with RVR Solu-Medrol 60 mg every 8 hours IV Careful diuresis and management of atrial fibrillation with RVR, status post Cardizem drip currently on oral AV annie blocking agent and heart rate well controlled. Consulting cardiology and pulmonary medicine. Acute COPD exacerbation, cannot exclude hospital-acquired pneumonia Continue Solu-Medrol, broad-spectrum antibiotic discontinued CT negative, will continue azithromycin Bronchodilator treatment continue oxygen support and BiPAP as needed Pulmonary medicine following Atrial fibrillation with RVR Patient at home was on Coumadin for her history of mechanical cardiac valve Echocardiogram recently done as mentioned above EF 55% RVSP 52 status post Cardizem drip currently on oral AV annie blocking agent and heart rate well controlled. Coumadin for AC Cardiology following Acute on chronic diastolic congestive heart failure Likely in the setting of above echocardiogram results as mentioned above IV diuresis with careful monitoring of basic medical profile renal function on a daily basis Continue cardiac telemetry. Cardiology following Right upper lobe spiculated nodule, Incidental finding This is a solitary pulmonary nodule. Needs to be worked up on outpatient basis. No intervention at this point in time. History of coronary artery disease status post CABG and history of valvular hea rt disease status post mitral and aortic valve replacement with mechanical valve Continue anticoagulation as mentioned above Cardiology following Obesity with obstructive sleep apnea, BMI of 46 Continue BiPAP Patient will benefit from outpatient sleep study. Hyperlipidemia Continue statin DVT prophylaxis: Coumadin CODE STATUS: Full code Discharge plan: Likely in 3-4 days pending hospital course and clinical improvement and pending workup.
[2021-06-01] MEDS ORDERED: WARFARIN 5 MG TAB PO ONE (18:00)
[2021-06-01] MEDS ORDERED: VANCOMYCIN TROUGH DUE 1 EACH MISC MISCELLANE ONE (20:00)
[2021-06-01 21:14] LABS: Glucose,Whole Blood 147 mg/dL (75-99)
[2021-06-01] MEDS: ATORVASTATIN 40 MG TAB PO SCH (21:47)
[2021-06-01] MEDS: SENNOSIDES 8.6 MG TAB PO SCH (21:48)
[2021-06-02] MEDS: DILTIAZEM 125 MG in SODIUM CHLORIDE 0.9% 100 ML IV SCH ×2 (00:08→17:30)
[2021-06-02] MEDS: methylPREDNISolone SOD SUCCI 125 MG/2 ML VIAL IV SCH ×5 (00:09→23:38)
[2021-06-02] MEDS: IPRATROPIUM-ALBUTEROL 3 ML NEB INHALATION SCH ×6 (00:29→20:54)
[2021-06-02 05:26] LABS: Basophils % (A) 0 %; Eosinophils # (A) 0.1 k/uL (0-0.7); Eosinophils % (A) 1 %; HCT 39.3 % (34.0-46.0); HGB 12.4 gm/dL (11.4-16.0); Hypochromasia Slight; Lymphocytes # (A) 0.8 k/uL (1.0-4.8); Lymphocytes % (A) 9 %; MCH 31.2 pg (25.0-35.0); MCHC 31.5 g/dL (31.0-37.0); MCV 99.3 fL (80.0-100.0); Mean Platelet Volume 7.5; Monocytes # (A) 0.8 k/uL (0-1.0); Monocytes % (A) 8 %; Neutrophils # (A) 7.6 k/uL (1.3-7.7); Neutrophils % (A) 81 %; Platelet Count 213 k/uL (150-450); RBC 3.96 m/uL (3.80-5.40); RDW 13.4 % (11.5-15.5); WBC 9.3 k/uL (3.8-10.6)
[2021-06-02 05:35] LABS: INR 1.7 (<1.2); Prothrombin Time 16.8 sec (9.0-12.0)
[2021-06-02 05:41] LABS: ALT 68 U/L (4-34); AST 42 U/L (14-36); African American GFR (CKD) >90 (>60 ml/min/1.73 sqM); Albumin 3.4 g/dL (3.5-5.0); Alkaline Phosphatase 98 U/L (38-126); Blood Urea Nitrogen 32 mg/dL (7-17); Chloride 90 mmol/L (98-107); Glucose 124 mg/dL (74-99); Non-African American GFR(CKD) >90 (>60 ml/min/1.73 sqM); Potassium 4.1 mmol/L (3.5-5.1); Sodium 133 mmol/L (137-145); Total Bilirubin 0.7 mg/dL (0.2-1.3); Total Protein 6.1 g/dL (6.3-8.2)
[2021-06-02 05:47] LABS: Anion Gap 5 mmol/L; Carbon Dioxide 38 mmol/L (22-30)
[2021-06-02] MEDS: LEVOTHYROXINE 25 MCG TAB PO SCH (06:53)
[2021-06-02] MEDS: PANTOPRAZOLE 40 MG TABLET PO SCH (06:53)
[2021-06-02 07:17] LABS: Glucose,Whole Blood 115 mg/dL (75-99)
[2021-06-02] MEDS: INSULIN ASPART (NovoLOG) 100 UNIT/ML VIAL SQ SCH ×4 (07:30→20:32)
[2021-06-02] MEDS: FUROSEMIDE 10 MG/ML 4 ML VIAL IV SCH (09:13)
[2021-06-02] MEDS: ENOXAPARIN 100 MG/ML SYRINGE SQ SCH ×2 (09:14→20:33)
[2021-06-02] MEDS: METOPROLOL TARTRATE 50 MG TAB PO SCH ×2 (09:15→20:33)
[2021-06-02] MEDS: ARIPiprazole 10 MG TAB PO SCH (09:15)
[2021-06-02] MEDS: AZITHROMYCIN 250 MG TAB PO SCH (09:15)
[2021-06-02] MEDS: VENLAFAXINE HCL 75 MG TAB PO SCH ×2 (09:15→20:32)
[2021-06-02] MEDS: ASPIRIN 81 MG PO SCH (09:15)
--- NOTE | 2021-06-02 09:51 | PN ---
PROGRESS NOTE Mrs. Reddy is a 60-year-old female who was transferred with worsening dyspnea on exertion. She has a known history of aortic and mitral valve replacement with prosthetic valves, history of chronic persistent atrial fibrillation, anticoagulated, history of chronic obstructive lung disease. She stopped smoking in December of this year. She had an echocardiogram done in May that revealed preserved systolic function with normal functioning of her mitral and aortic valve prosthesis. She is feeling better today. She is denying any chest discomfort. Her breathing has been stable. She denies any dizziness or palpitations. She denies any nausea. She has some cough. No palpitations. She was diagnosed with exacerbation of COPD. She is continued on IV Cardizem with controlled ventricular response. Otherwise, she is on aspirin once a day, Abilify, Lipitor 40 mg daily, Zithromax, Lovenox 100 mg subcutaneously q.12 hours, Lasix 40 mg IV daily, methylprednisolone, metoprolol tartrate 100 mg twice a day, Myrbetriq, Protonix, and Coumadin. PHYSICAL EXAMINATION: Blood pressure is running in the 140s over 90s with a heart rate in the 90s to low 100s. Afebrile. LUNGS: Scattered wheezes. HEART: Irregularly irregular. S1, S2 with prosthetic aortic and mitral sounds and a systolic murmur. No diastolic murmur. ABDOMEN: Soft, obese, nontender. EXTREMITIES: No significant edema. LAB DATA: BUN and creatinine of 32 and 0.53. Potassium 4.1. INR of 1.7. Her ALT is 68. IMPRESSION: 1. Exacerbation of chronic obstructive pulmonary disease with bronchitis and dyspnea. 2. Status post aortic and mitral valve replacement with prosthetic valves. 3. Atrial fibrillation. 4. Prior history of smoking. 5. Probable mild heart failure with preserved systolic function. RECOMMENDATIONS: Will continue present therapy. I will switch her to oral Cardizem. Will follow her renal function and her INR, try to maintain an INR around 3 because of atrial fibrillation and two prosthetic, mitral and aortic, valves. Will increase her level activity. If she remains stable, she may be able to be transferred to the telemetry floor. MMODL / IJN: [id number] / [place]
[2021-06-02] MEDS: NON FORMULARY DRUG (Mirabegron [Myrbetriq] 25 MG Tablet) PO SCH (09:52)
[2021-06-02] MEDS: NYSTATIN 100,000 UNIT/ML SUSP 500,000 UNIT/5 ML CUP PO SCH ×4 (09:56→20:32)
[2021-06-02] MEDS: DILTIAZEM ORAL 30 MG TAB PO SCH ×2 (09:56→15:33)
[2021-06-02] MEDS: BUDESONIDE 1 MG/2 ML NEBU INHALATION SCH ×2 (10:24→20:54)
[2021-06-02] MEDS: FORMOTEROL FUMARATE 20 MCG/2 ML NEBU INHALATION SCH ×2 (10:24→20:54)
[2021-06-02 11:19] LABS: Glucose,Whole Blood 229 mg/dL (75-99)
--- NOTE | 2021-06-02 13:10 | P.PN ---
Subjective Progress Note Date: 06/02/21 Principal diagnosis: Acute hypoxic respiratory failure secondary to acute exacerbation of COPD and atrial fibrillation/flutter with RVR. 58-year-old female patient was transferred to us from an outside hospital for worsening shortness of breath and acute respiratory distress. The patient presented to her primary care physician with worsening shortness of breath associated with some increased dyspnea and wheeze. She is known to have COPD and she quit smoking back in December 2020. She is smoking up to 2 pack of cigarettes a day and she did that since the age of 11. She had increased cough and chest tightness along with some light yellow sputum production. Her cough got worse as the patient was having increased wheezing and shortness of breath and for that reason she presented to her physician. She was referred to the emergency department in the ED the patient was found to have a pulse ox in the low 80s. She wason 2 L about 2 by nasal cannula. She was also in atrial fibrillation with rapid ventricular response and she was started on a Cardizem drip. She was quite short of breath. Chest x-ray showed post thoracotomy changes. Cardiac enzymes were negative. INR was at 1.6. Patient was transferred to our hospital for further care. At the time of arrival to the ICU, she was already on BiPAP at a pressure of 10/5 cm of water with an FiO2 of 40%. She was feeling better. Her breathing was less labored. She denied having any chest pain. She was started on a Cardizem drip for heart rate was under better control. I reviewed the blood work that was sent over from the other hospital and the patient had a sodium level of 136, potassium of 4.5, serum bicarbonate 35, glucose of 150, AST of 56, creatinine of 0.7, ALT of 61, proBNP level of 3870, white cell count was at 13.8 with hemoglobin of 12.4. Chest x-ray showed "sternotomy with cardiac valve replacement. Note that the patient has undergone previous coronary artery bypass surgery and aortic/mitral valve replacement. Her EKG was showing A. fib/flutter and in our ICU, she was started in the front the rhythm with variable conduction response. Her most recent prwas done on 05/27/2021 and the patient was found to have a normal ejection fraction of 55%, right ventricular systolic pressure was estimated to be 52. There was severe increase in left atrial diameter, normal functioning mechanical mitral valve and normal functioning mechanical aortic valve. She had moderate degree of tricuspid regurgitation. At a time of my evaluation, the patient was awake and alert. She was feeling better. She was less short of breath. She wanted to come off the BiPAP mask. She was on IV heparin. She was also on Cardizem drip running at 5 mg an hour. She was still in atrial fibrillation/flutter. She was started on DuoNeb nebulized treatments around the clock. She was given also dose of Bumex 2 mg IV in addition to IV Solu-Medrol prior to her transfer here to our hospital through the [facility] catheter was inserted. On today's evaluation of 05/31/2021, the patient is off the BiPAP and currently she is on oxygen at 8 L per minute. Note that overnight, she was using the BiPAP on and off as the patient was desaturating. As mentioned earlier, the patient was seen in consultation. She was a case of an acute COPD exacerbation and she was acutely bronchospastic and wheezy. She also presented with atrial fibrillation with rapid ventricular response associated with a Cardizem drip. She was already on long-term and coagulation with warfarin and she was supratherapeutic.. As part of further workup, a CT angiogram was done yesterday and there was no evidence of any pulmonary embolism. There was a spiculated nodule in the right upper lobe, suspicious for malignancy and this was measuring around 2 cm in size. Patchy infiltrates/atelectasis lower lobes bilaterally. The pulmonary arteries were patent. No evidence of any embolism. No evidence of any mediastinal lymphadenopathy. The patient also has background emphysema. For now, the patient presented with bronchodilators and the patient on DuoNeb nebulized treatments around the clock. She is on Cardizem drip at 15 mg an hour and her atrial fibrillation and her rate was under better control. We'll morning activities, her heart rate up again. She is free of any chest pain. She remains on IV cefepime. The patient is being diuresis with IV Lasix once a day 40 mg IV push. Morning INR is at 4.6 with a PT of 44.3. Serum bicarb is at 40. BUN is at 27 with a creatinine of 0.6. Troponins are 0.01 and 0.03 respectively, free T4 was at 1.5, UA was negative. White is at 4.2 with a hemoglobin of 11.9. 06/01/2021 the patient continues to improve and the patient is feeling better, less shortness of breath compared to yesterday. She is currently on 5 L of oxygen by nasal cannula. She did not use the BiPAP overnight. When at rest and during sleep, H of ablations under better control. When awake on a chair, heart rate goes up to the 140s max. She remains on Cardizem drip at 10 mg an hour. Metoprolol dose has been modified to 100 mg 3 times a day. The same time the patient's INR is therapeutic with a INR of 2.3 on today's evaluation. Serum bicarbonate 39. Normal renal function. White cell count 11. Denies having any chest pain. Overall fluid balance has been -3 L over the past 24 hours. No an maria r. No palpitations. No significant swelling in lower extremities. She remains on Lasix 40 mg IV every 24 hours. She remains on a Medrol 60 mg every 6 hours. No other significant events overnight. She is off the BiPAP for now. Patient was reevaluated today on 06/02/21, patient remains in the ICU, remains in atrial fibrillation with RVR, remains on Cardizem at 10 mg per hour. Patient has IV fluid at KVO, is also on 3 L nasal cannula with O2 saturation 93%, intermittently on BiPAP 10/5 and 40%. Patient is on Lovenox, and Coumadin, INR today is 1.7. Clinically the patient is feeling better, she did weaned from BiPAP last night, seems to be more comfortable, and the rate seems to be a bit more controlled but not fully controlled yet. No chest x-ray was done today, however chest x-ray from 2 days ago showed no evidence of active disease. CBC today is relatively normal electrolytes are normal renal profile is normal INR is 1.7. Patient remains on updrafts, remains on Lasix 40 mg IV push daily, Cardizem will be changed to oral today, remains empirically on antibiotics in the form of Zithromax. Patient is also on Solu-Medrol 60 every 6, and metoprolol. Objective - Vital Signs Vital signs: Vital Signs Temp 97.9 F 06/02/21 12:00 Pulse 116 H 06/02/21 12:00 Resp 26 H 06/02/21 12:00 BP 113/69 06/02/21 12:00 Pulse Ox 96 06/02/21 12:00 Intake & Output 06/01/21 06/02/21 06/02/21 18:59 06:59 18:59 Intake Total 254.416 593.417 388.667 Output Total 8241 649 7554 Balance -1105.584 393.417 -861.333 Weight 110.6 kg Intake: IV 65 65 30 0.9 Normal Saline @ 5mL/ 65 65 30 hr - KVO Intake, IV Titration 69.416 78.417 108.667 Amount Diltiazem 125 mg In 69.416 78.417 108.667 Sodium Chloride 0.9% 100 ml @ Per Protocol IV .Q0M [facility] Rx#:[id number] Oral 120 450 250 Output: Urine 6477 839 1374 Other: Voiding Method Bedside Commode Bedside Commode Bedside Commode # Voids 1 1 # Bowel Movements 1 - Exam Physical Exam: Revealed a 60-year-old female in no distress, on 3 L nasal cannula. Head: Atraumatic, normocephalic. HEENT:[Neck is supple.] [No neck masses.] [No thyromegaly.] [No JVD.] Chest: [Diminished breath sound bilaterally, no crackles or rhonchi or wheezes. Cardiac Exam: Irregular irregular rhythm. [Normal S1 and S2, no S3 gallop, no murmur.] Abdomen: [Obese, Soft, nontender, no megaly, no rebound, no guarding, normal bowel sounds.] Extremities: [No clubbing, no edema, no cyanosis.] Good pulses bilaterally. Musculoskeletal: No deformities and no limitation in range of motion. Neurological Exam: [No focal neurologic deficit. Alert and oriented 3. Psychiatric: Normal mood affect and normal mental status examination. Skin: No rashes.] - Labs CBC & Chem 7: 06/02/21 04:32 06/02/21 04:32 Labs: Abnormal Lab Results - Last 24 Hours (Table) 06/01/21 06/01/21 06/02/21 Range/Units 16:16 21:13 04:32 Lymphocytes # (1.0-4.8) k/uL PT 16.8 H (9.0-12.0) sec INR 1.7 H (<1.2) Sodium (137-145) mmol/L Chloride (98-107) mmol/L Carbon Dioxide (22-30) mmol/L BUN (7-17) mg/dL Glucose (74-99) mg/dL POC Glucose (mg/dL) 117 H 147 H (75-99) mg/dL AST (14-36) U/L ALT (4-34) U/L Total Protein (6.3-8.2) g/dL Albumin (3.5-5.0) g/dL 06/02/21 06/02/21 06/02/21 Range/Units 04:32 04:32 07:15 Lymphocytes # 0.8 L (1.0-4.8) k/uL PT (9.0-12.0) sec INR (<1.2) Sodium 133 L (137-145) mmol/L Chloride 90 L (98-107) mmol/L Carbon Dioxide 38 H (22-30) mmol/L BUN 32 H (7-17) mg/dL Glucose 124 H (74-99) mg/dL POC Glucose (mg/dL) 115 H (75-99) mg/dL AST 42 H (14-36) U/L ALT 68 H (4-34) U/L Total Protein 6.1 L (6.3-8.2) g/dL Albumin 3.4 L (3.5-5.0) g/dL 06/02/21 Range/Units 11:16 Lymphocytes # (1.0-4.8) k/uL PT (9.0-12.0) sec INR (<1.2) Sodium (137-145) mmol/L Chloride (98-107) mmol/L Carbon Dioxide (22-30) mmol/L BUN (7-17) mg/dL Glucose (74-99) mg/dL POC Glucose (mg/dL) 229 H (75-99) mg/dL AST (14-36) U/L ALT (4-34) U/L Total Protein (6.3-8.2) g/dL Albumin (3.5-5.0) g/dL Assessment and Plan Assessment: Impression: Acute hypoxic respiratory failure secondary to acute exacerbation of COPD, and atrial fibrillation with RVR. Shortness of breath secondary to above. History of coronary artery disease with previous CABG. History of valvular heart disease and previous mitral and aortic valve replacement/mechanical valve. Secondary pulmonary hypertension secondary to valvular heart disease and underlying COPD Spiculated right upper lobe nodule suspicious for malignancy will need definite outpatient follow-up. Patient will likely require PET scan and possibly navigational bronchoscopy and biopsy or even possibly CT-guided needle biopsy of the nodule. This could be done on outpatient basis. Dyslipidemia. Hypertension. Hypothyroidism. Recommendation: Continue bronchodilators. Including Perforomist, Pulmicort, and DuoNeb. Continue to wean function and titrate accordingly. Continue diuretics. Continue beta blockers. Transition IV Cardizem to oral Cardizem as per cardiology. Continue anticoagulation therapy, consider stopping Lovenox once INR is therapeutic and continue Coumadin Follow-up on outpatient basis with Dr. Tovar for spiculated right upper lobe nodule. We will continue to follow. Cleared to transfer out of the ICU to a monitor bed on the cardiac floor if cleared by cardiology. Time with Patient: Less than 30
--- NOTE | 2021-06-02 14:47 | P.PN ---
Subjective Progress Note Date: 06/02/21 Principal diagnosis: CC: shortness of breath 58 years old female who presented with the chief complaints of worsening respiratory failure from outside hospital. Originally she presented at outside hospital for worsening shortness of breath, patient was admitted for respiratory failure due to COPD exacerbation and possible CHF with fluid overload, patient also developed atrial fibrillation with RVR. Patient was started on BiPAP and was started on Cardizem drip outside hospital, I was contacted by physician from outside hospital who mentioned that they do not have ICU at their facility and patient is requiring higher level of care. Patient does have history of previous coronary artery bypass surgery and aortic mitral valve replacement. Patient most recent echocardiogram was done on 05/27/2021 showing EF of 55%, RVSP 52, otherwise no major abnormalities were noted per electronic medical record. Patient was transferred to [facility] for further management given lack of ICU and subspecialty support present where she was present before. Patient was admitted for COPD exacerbation and congestive heart failure exacerbation to medical ICU. Patient is being treated with IV diuretics and with IV Solu-Medrol, breathing treatments and azithromycin. Patient shortness of breath is improving. She is now weaned down to 3 L nasal cannula. Patient deemed stable to be transferred out of the ICU on 06/02/2021. Patient seen and examined today. She states that her shortness of breath has been improving since admission. She states that she is making good urine output. She denies any acute complaints. No acute issues overnight. Objective - Vital Signs Vital signs: Vital Signs Temp 97.9 F 06/02/21 12:00 Pulse 116 H 06/02/21 12:00 Resp 26 H 06/02/21 12:00 BP 113/69 06/02/21 12:00 Pulse Ox 96 06/02/21 12:00 Intake & Output 06/01/21 06/02/21 06/02/21 18:59 06:59 18:59 Intake Total 254.416 593.417 388.667 Output Total 9717 431 8891 Balance -1105.584 393.417 -862.333 Weight 110.6 kg Intake: IV 65 65 30 0.9 Normal Saline @ 5mL/ 65 65 30 hr - KVO Intake, IV Titration 69.416 78.417 108.667 Amount Diltiazem 125 mg In 69.416 78.417 108.667 Sodium Chloride 0.9% 100 ml @ Per Protocol IV .Q0M [facility] Rx#:[id number] Oral 120 450 250 Output: Urine 5832 045 9197 Urine/Stool Mix 1 Other: Voiding Method Bedside Commode Bedside Commode Bedside Commode # Voids 1 1 # Bowel Movements 1 - Exam General examination - Alert and Oriented 3 in NAD Heart - + S1S2 no murmurs Lungs - diminished breath sounds bilaterally Abdomen soft NT ND +ve BS Extremities - No edema [employer]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 Psych - Calm and cooperative - Labs CBC & Chem 7: 06/02/21 04:32 06/02/21 04:32 Labs: Abnormal Lab Results - Last 24 Hours (Table) 06/01/21 06/01/21 06/02/21 Range/Units 16:16 21:13 04:32 Lymphocytes # (1.0-4.8) k/uL PT 16.8 H (9.0-12.0) sec INR 1.7 H (<1.2) Sodium (137-145) mmol/L Chloride (98-107) mmol/L Carbon Dioxide (22-30) mmol/L BUN (7-17) mg/dL Glucose (74-99) mg/dL POC Glucose (mg/dL) 117 H 147 H (75-99) mg/dL AST (14-36) U/L ALT (4-34) U/L Total Protein (6.3-8.2) g/dL Albumin (3.5-5.0) g/dL 06/02/21 06/02/21 06/02/21 Range/Units 04:32 04:32 07:15 Lymphocytes # 0.8 L (1.0-4.8) k/uL PT (9.0-12.0) sec INR (<1.2) Sodium 133 L (137-145) mmol/L Chloride 90 L (98-107) mmol/L Carbon Dioxide 38 H (22-30) mmol/L BUN 32 H (7-17) mg/dL Glucose 124 H (74-99) mg/dL POC Glucose (mg/dL) 115 H (75-99) mg/dL AST 42 H (14-36) U/L ALT 68 H (4-34) U/L Total Protein 6.1 L (6.3-8.2) g/dL Albumin 3.4 L (3.5-5.0) g/dL 06/02/21 Range/Units 11:16 Lymphocytes # (1.0-4.8) k/uL PT (9.0-12.0) sec INR (<1.2) Sodium (137-145) mmol/L Chloride (98-107) mmol/L Carbon Dioxide (22-30) mmol/L BUN (7-17) mg/dL Glucose (74-99) mg/dL POC Glucose (mg/dL) 229 H (75-99) mg/dL AST (14-36) U/L ALT (4-34) U/L Total Protein (6.3-8.2) g/dL Albumin (3.5-5.0) g/dL Assessment and Plan Assessment: Acute hypoxic respiratory failure Likely multifactorial, due to COPD exacerbation and congestive heart failure exacerbation and atrial fibrillation with RVR Patient currently satting well on 2 L nasal cannula. Wean O2 as tolerated see management below Acute COPD exacerbation, cannot exclude hospital-acquired pneumonia Continue Solu-Medrol, broad-spectrum antibiotic discontinued since CT negative, will continue azithromycin Pulmonary medicine following Atrial fibrillation with RVR Prostatic mechanical and aortic valve Patient at home was on Coumadin for her history of mechanical cardiac valve Echocardiogram recently done showed EF 55% RVSP 52 Patient transition from Cardizem drip to oral Cardizem Coumadin for AC and bridging with Lovenox. Cardiology recommends to keep INR close to 3. Cardiology following Acute on chronic diastolic congestive heart failure Likely in the setting of above echocardiogram results as mentioned above IV diuresis with careful monitoring of basic medical profile renal function on a daily basis Continue cardiac telemetry. Cardiology following Right upper lobe spiculated nodule, Incidental finding This is a solitary pulmonary nodule. Needs to be worked up on outpatient basis. Needs to follow up with pulmonology No intervention at this point in time. History of coronary artery disease status post CABG and history of valvular heart disease status post mitral and aortic valve replacement with mechanical valve Continue anticoagulation as mentioned above Cardiology following Obesity with obstructive sleep apnea, BMI of 46 Continue BiPAP Patient will benefit from outpatient sleep study. Hyperlipidemia Continue statin DVT prophylaxis: Coumadin and lovenox CODE STATUS: Full code Discharge plan: Likely in 2-3 days pending hospital course and clinical improvement and pending workup.
[2021-06-02 16:30] LABS: Glucose,Whole Blood 95 mg/dL (75-99)
[2021-06-02] MEDS: ALPRAZolam 0.25 MG TAB PO PRN (17:32)
[2021-06-02] MEDS ORDERED: WARFARIN 3 MG TAB PO ONE (18:00)
[2021-06-02 20:21] LABS: Glucose,Whole Blood 177 mg/dL (75-99)
[2021-06-02] MEDS: SENNOSIDES 8.6 MG TAB PO SCH (20:33)
[2021-06-02] MEDS: ATORVASTATIN 40 MG TAB PO SCH (20:33)
[2021-06-03] MEDS: HYDROcodone/APAP 7.5-325MG 1 EACH TAB PO PRN (00:48)
[2021-06-03 05:37] LABS: INR 2.1 (<1.2); Prothrombin Time 20.5 sec (9.0-12.0)
[2021-06-03 05:44] LABS: African American GFR (CKD) >90 (>60 ml/min/1.73 sqM); Anion Gap 5 mmol/L; Blood Urea Nitrogen 29 mg/dL (7-17); Calcium 8.9 mg/dL (8.4-10.2); Carbon Dioxide 39 mmol/L (22-30); Chloride 89 mmol/L (98-107); Glucose 117 mg/dL (74-99); Magnesium 2.4 mg/dL (1.6-2.3); Non-African American GFR(CKD) >90 (>60 ml/min/1.73 sqM); Sodium 133 mmol/L (137-145)
[2021-06-03] MEDS: DILTIAZEM 125 MG in SODIUM CHLORIDE 0.9% 100 ML IV SCH (05:55)
[2021-06-03] MEDS: methylPREDNISolone SOD SUCCI 125 MG/2 ML VIAL IV SCH ×2 (06:36→13:34)
[2021-06-03] MEDS: PANTOPRAZOLE 40 MG TABLET PO SCH (06:37)
[2021-06-03] MEDS: LEVOTHYROXINE 25 MCG TAB PO SCH (06:37)
[2021-06-03 06:46] LABS: Glucose,Whole Blood 119 mg/dL (75-99)
[2021-06-03] MEDS: INSULIN ASPART (NovoLOG) 100 UNIT/ML VIAL SQ SCH ×4 (07:33→20:57)
[2021-06-03] MEDS: FORMOTEROL FUMARATE 20 MCG/2 ML NEBU INHALATION SCH ×2 (08:04→20:54)
[2021-06-03] MEDS: BUDESONIDE 1 MG/2 ML NEBU INHALATION SCH ×2 (08:04→20:54)
[2021-06-03] MEDS: IPRATROPIUM-ALBUTEROL 3 ML NEB INHALATION SCH ×4 (08:04→20:56)
[2021-06-03] MEDS: NON FORMULARY DRUG (Mirabegron [Myrbetriq] 25 MG Tablet) PO SCH (08:35)
[2021-06-03] MEDS: NYSTATIN 100,000 UNIT/ML SUSP 500,000 UNIT/5 ML CUP PO SCH ×4 (09:11→20:55)
[2021-06-03] MEDS: ARIPiprazole 10 MG TAB PO SCH (09:12)
[2021-06-03] MEDS: ENOXAPARIN 100 MG/ML SYRINGE SQ SCH ×2 (09:12→20:54)
[2021-06-03] MEDS: AZITHROMYCIN 250 MG TAB PO SCH (09:12)
[2021-06-03] MEDS: VENLAFAXINE HCL 75 MG TAB PO SCH ×2 (09:13→20:54)
[2021-06-03] MEDS: METOPROLOL TARTRATE 50 MG TAB PO SCH ×2 (09:13→17:56)
[2021-06-03] MEDS: DILTIAZEM ORAL 60 MG TAB PO SCH ×3 (09:14→22:11)
[2021-06-03] MEDS: FUROSEMIDE 20 MG TAB PO SCH ×2 (09:14→17:22)
[2021-06-03] MEDS: ASPIRIN 81 MG PO SCH (09:14)
--- NOTE | 2021-06-03 10:46 | PN ---
PROGRESS NOTE Mrs. Reddy is a 60-year-old female with history of chronic persistent atrial fibrillation, history of aortic and mitral valve replacement, who presented with exacerbation of COPD and bronchitis. She is feeling slightly better today. Her breathing is better. She is denying any chest pain. She denies any dizziness or palpitations. She denies any nausea. She continues to be in atrial fibrillation with episodes of rapid ventricular response. She continues to be on IV Cardizem. Hemodynamically she is stable. Her urine output is stable. She continues to be at this time on aspirin 81 mg daily, Lipitor 40 mg daily, IV Cardizem, Lovenox 100 mg subcutaneously q.12 hours. She is receiving Coumadin, metoprolol tartrate 100 mg twice a day, Myrbetriq, ipratropium, levothyroxine, Protonix. PHYSICAL EXAMINATION: Blood pressure 123/80 with a heart rate in the 90s. LUNGS: No wheezes noted this morning. HEART: Irregularly irregular. S1, S2. No S3, with systolic murmur and a prosthetic aortic and mitral sound. ABDOMEN: Soft, nontender. EXTREMITIES: No edema. LAB DATA: BUN and creatinine 29 and 0.52. Potassium 4.0. Her INR is 2.1. Magnesium 2.4. IMPRESSION: 1. Exacerbation of chronic obstructive pulmonary disease with bronchitis. 2. Chronic persistent atrial fibrillation with episodes of rapid ventricular response. 3. Status post aortic and mitral valve replacement. 4. Prior history of smoking. RECOMMENDATIONS: I will increase the dose of oral Cardizem, stop the IV Cardizem, continue the subcutaneous Lovenox for another 24 hours and stop it tomorrow if her INR is close to therapeutic. Because of her two prosthetic valves and atrial fibrillation, will try to keep the INR around 3. If she remains stable, I am hopeful that she should be able to be discharged home in 24 to 48 hours. MMODL / IJN: [id number] /
[2021-06-03 12:29] LABS: Glucose,Whole Blood 121 mg/dL (75-99)
[2021-06-03] MEDS: MAGNESIUM HYDROXIDE 2,400 MG/10 ML CUP PO PRN (13:51)
[2021-06-03] MEDS: ALPRAZolam 0.25 MG TAB PO PRN ×2 (13:51→20:57)
--- NOTE | 2021-06-03 16:28 | P.PN ---
Subjective Progress Note Date: 06/03/21 Principal diagnosis: Acute exacerbation of COPD On 06/03/2021 patient is seen in follow-up on selective care unit, she is awake and alert, in no acute distress, she is currently on 2 L of oxygen, her pulse ox is 88%, breathing much more comfortably, no wheezing, no complaints of chest discomfort. Patient continues to be in atrial fibrillation currently rate is controlled. Patient is on Coumadin for anticoagulation and today's INR is 2.1. She is on oral Cardizem at 60 mg 3 times daily. Patient is on nebulized bronchodilators and IV steroids, and she had no acute events overnight. She could be considered for discharge home today. Objective - Vital Signs Vital signs: Vital Signs Temp 98.3 F 06/03/21 08:00 Pulse 84 06/03/21 15:55 Resp 18 06/03/21 12:00 BP 121/88 06/03/21 12:00 Pulse Ox 88 L 06/03/21 12:00 Intake & Output 06/02/21 06/03/21 06/03/21 18:59 06:59 18:59 Intake Total 638.667 624.167 Output Total 1901 1600 Balance -1262.333 -975.833 Weight 110.2 kg Intake: IV 30 0.9 Normal Saline @ 5mL/ 30 hr - KVO Intake, IV Titration 108.667 124.167 Amount Diltiazem 125 mg In 124.167 Sodium Chloride 0.9% 100 ml @ 10 MG/HR 10 mls/hr IV .[id number] [facility] Rx#: [id number] Diltiazem 125 mg In 108.667 Sodium Chloride 0.9% 100 ml @ Per Protocol IV .Q0M [facility] Rx#:[id number] Oral 500 500 Output: Urine 1900 1600 Urine/Stool Mix 1 Other: Voiding Method Bedside Commode Bedside Commode Bedside Commode # Voids 1 1 - Exam GENERAL EXAM: Alert, very pleasant, 60-year-old white female, on 2 L of oxygen a pulse ox of 88% comfortable in no apparent distress. HEAD: Normocephalic/atraumatic. EYES: Normal reaction of pupils, equal size. Conjunctiva pink, sclera white. NOSE: Clear with pink turbinates. THROAT: No erythema or exudates. NECK: No masses, no JVD, no thyroid enlargement, no adenopathy. CHEST: No chest wall deformity. Symmetrical expansion. LUNGS: Diminished breath sounds bilaterally CVS: Irregular rate and rhythm, normal S1 and S2, no gallops, no murmurs, no rubs ABDOMEN: Soft, nontender. No hepatosplenomegaly, normal bowel sounds, no guarding or rigidity. EXTREMITIES: No clubbing, no edema, no cyanosis, 2+ pulses and upper and lower extremities. MUSCULOSKELETAL: Muscle strength and tone normal. SPINE: No scoliosis or deformity SKIN: No rashes CENTRAL NERVOUS SYSTEM: Alert and oriented -3. No focal deficits, tone is normal in all 4 extremities. PSYCHIATRIC: Alert and oriented -3. Appropriate affect. Intact judgment and insight. - Labs CBC & Chem 7: 06/02/21 04:32 06/03/21 04:38 Labs: Abnormal Lab Results - Last 24 Hours (Table) 06/02/21 06/03/21 06/03/21 Range/Units 20:20 04:38 04:38 PT 20.5 H (9.0-12.0) sec INR 2.1 H (<1.2) Sodium 133 L (137-145) mmol/L Chloride 89 L (98-107) mmol/L Carbon Dioxide 39 H (22-30) mmol/L BUN 29 H (7-17) mg/dL Glucose 117 H (74-99) mg/dL POC Glucose (mg/dL) 177 H (75-99) mg/dL Magnesium 2.4 H (1.6-2.3) mg/dL 06/03/21 06/03/21 Range/Units 06:44 11:58 PT (9.0-12.0) sec INR (<1.2) Sodium (137-145) mmol/L Chloride (98-107) mmol/L Carbon Dioxide (22-30) mmol/L BUN (7-17) mg/dL Glucose (74-99) mg/dL POC Glucose (mg/dL) 119 H 121 H (75-99) mg/dL Magnesium (1.6-2.3) mg/dL Assessment and Plan Plan: Assessment: #1. Acute exacerbation of COPD #2. Atrial fibrillation/flutter with rapid ventricular response, better controlled on oral Cardizem and Coumadin. Today's INR is 2.1 #3. Acute hypoxic respiratory failure secondary to the above no signs of any CHF, no evidence of any pneumonia, patient has been vaccinated for COVID-19, CT angiogram showed no evidence of pneumonia or pulmonary embolism #4. History of coronary artery disease with previous coronary artery bypass grafting surgery #5. History of valvular heart disease status post mitral and aortic valve replacement with a mechanical valve. Recent echocardiogram shows normally functioning mitral and aortic valve. The patient has a preserved LV function and secondary pulmonary hypertension with a PA pressure of around 52 mmHg #7. Spiculated right upper lobe mass measuring 2 cm will be worked up on an outpatient basis no mediastinal adenopathy #8. Morbid obesity with a BMI of 46 kg/m #9. Features of obstructive sleep apnea #10. Hyperlipidemia #11. COPD maintained on Breo-Ellipta on an outpatient basis #12. Hypothyroidism #13. Hypertension Plan: Patient is doing well, Continues to improve Could be considered for discharge home from pulmonary perspective on prednisone taper She can resume her Breo-Ellipta, she could benefit from nebulized DuoNeb 4 times a day Today's INR is 2.1, patient continues on Lovenox and Coumadin She will need outpatient follow-up with Dr. Tovar in the office in 7-10 days I performed a history & physical examination of the patient and discussed their management with my nurse practitioner, Susan Garcia. I reviewed the nurse practitioner's note and agree with the documented findings and plan of care. Lung sounds are positive for diminished breath sounds throughout the lung parish. The findings and the impression was discussed with the patient. I attest to the documentation by the nurse practitioner. Time with Patient: Less than 30
[2021-06-03 16:53] LABS: Glucose,Whole Blood 115 mg/dL (75-99)
--- NOTE | 2021-06-03 17:25 | P.PN ---
Subjective Progress Note Date: 06/03/21 The patient was seen and examined at the bedside on 06/03. She reports some improvement with her breathing. She denied chest pain, nausea, vomiting, diaphoresis, diarrhea. Objective - Vital Signs Vital signs: Vital Signs Temp 98.3 F 06/03/21 08:00 Pulse 84 06/03/21 15:55 Resp 18 06/03/21 12:00 BP 121/88 06/03/21 12:00 Pulse Ox 88 L 06/03/21 12:00 Intake & Output 06/02/21 06/03/21 06/03/21 18:59 06:59 18:59 Intake Total 638.667 624.167 Output Total 1901 1600 Balance -1262.333 -975.833 Weight 110.2 kg Intake: IV 30 0.9 Normal Saline @ 5mL/ 30 hr - KVO Intake, IV Titration 108.667 124.167 Amount Diltiazem 125 mg In 124.167 Sodium Chloride 0.9% 100 ml @ 10 MG/HR 10 mls/hr IV .[id number] [facility] Rx#: [id number] Diltiazem 125 mg In 108.667 Sodium Chloride 0.9% 100 ml @ Per Protocol IV .Q0M [facility] Rx#:[id number] Oral 500 500 Output: Urine 1900 1600 Urine/Stool Mix 1 Other: Voiding Method Bedside Commode Bedside Commode Bedside Commode # Voids 1 1 - Exam General: Non-toxic, in no acute distress, appears stated age, morbidly obese HEENT: NC/AT, anicteric sclerae, moist conjunctiva, no lid-lag, PERRLA Cardiovascular: Irregularly irregular, no murmurs, rubs, or gallops Lungs: Somewhat poor air entry bilaterally, no accessory muscle use Abdominal: Soft, non-tender, non-distended, no guarding, rebound, or rigidity Skin: Warm, dry Extremities: No edema or contractures Psychiatric: Alert and oriented to person, place and time, appropriate affect Neuro: CN II-XII grossly intact, Strength 5/5 in all 4 extremities, Speech intact, Sensation to light touch grossly intact throughout - Labs CBC & Chem 7: 06/02/21 04:32 06/03/21 04:38 Labs: Abnormal Lab Results - Last 24 Hours (Table) 10/06/03/21 06/03/21 Range/Units 20:20 04:38 04:38 PT 20.5 H (9.0-12.0) sec INR 2.1 H (<1.2) Sodium 133 L (137-145) mmol/L Chloride 89 L (98-107) mmol/L Carbon Dioxide 39 H (22-30) mmol/L BUN 29 H (7-17) mg/dL Glucose 117 H (74-99) mg/dL POC Glucose (mg/dL) 177 H (75-99) mg/dL Magnesium 2.4 H (1.6-2.3) mg/dL 06/03/21 06/03/21 06/03/21 Range/Units 06:44 11:58 16:49 PT (9.0-12.0) sec INR (<1.2) Sodium (137-145) mmol/L Chloride (98-107) mmol/L Carbon Dioxide (22-30) mmol/L BUN (7-17) mg/dL Glucose (74-99) mg/dL POC Glucose (mg/dL) 119 H 121 H 115 H (75-99) mg/dL Magnesium (1.6-2.3) mg/dL Assessment and Plan Plan: Hypoxic respiratory failure secondary to COPD versus A. fib RVR -Pulmonary recommendations appreciated -Cardiology following -Continue with Solu-Medrol and DuoNeb's A. fib with RVR -Echocardiogram reviewed -Continue with Coumadin and bridging with Lovenox -Cardiac recommendations appreciated Right upper lobe nodule -Will need outpatient follow-up Chronic conditions: Hyperlipidemia, coronary artery disease, obesity -Continue with home meds -Continue with BiPAP DVT prophylaxis -Coumadin and Lovenox Discussed with: Patient Anticipated discharge date: 2-[address]: Home
[2021-06-03] MEDS ORDERED: WARFARIN 5 MG TAB PO ONE (18:00)
[2021-06-03 20:02] LABS: Glucose,Whole Blood 165 mg/dL (75-99)
[2021-06-03] MEDS ORDERED: DILTIAZEM 125 MG in SODIUM CHLORIDE 0.9% 100 ML IV SCH (20:15)
[2021-06-03] MEDS ORDERED: DILTIAZEM DRIP BOLUS FROM BAG 1 MG SOLN IV ONE (20:15)
[2021-06-03] MEDS ORDERED: FUROSEMIDE 10 MG/ML 2 ML VIAL IV STA (20:16)
[2021-06-03] MEDS: ATORVASTATIN 40 MG TAB PO SCH (20:55)
[2021-06-03] MEDS: SENNOSIDES 8.6 MG TAB PO SCH (22:11)
[2021-06-04] MEDS: methylPREDNISolone SOD SUCCI 40 MG/ML 1 ML VIAL IV SCH ×3 (00:43→16:30)
[2021-06-04 06:04] LABS: Glucose,Whole Blood 176 mg/dL (75-99)
[2021-06-04] MEDS: INSULIN ASPART (NovoLOG) 100 UNIT/ML VIAL SQ SCH ×4 (06:06→22:19)
[2021-06-04] MEDS: PANTOPRAZOLE 40 MG TABLET PO SCH (06:07)
[2021-06-04] MEDS: LEVOTHYROXINE 25 MCG TAB PO SCH (06:07)
[2021-06-04] MEDS: ALPRAZolam 0.25 MG TAB PO PRN (06:34)
[2021-06-04] MEDS: IPRATROPIUM-ALBUTEROL 3 ML NEB INHALATION SCH ×5 (07:59→20:58)
[2021-06-04] MEDS: FORMOTEROL FUMARATE 20 MCG/2 ML NEBU INHALATION SCH ×3 (07:59→20:58)
[2021-06-04] MEDS: BUDESONIDE 1 MG/2 ML NEBU INHALATION SCH ×3 (07:59→20:58)
[2021-06-04 08:37] LABS: African American GFR (CKD) >90 (>60 ml/min/1.73 sqM); Anion Gap 6 mmol/L; Blood Urea Nitrogen 29 mg/dL (7-17); Calcium 8.7 mg/dL (8.4-10.2); Carbon Dioxide 38 mmol/L (22-30); Chloride 91 mmol/L (98-107); Glucose 186 mg/dL (74-99); Non-African American GFR(CKD) >90 (>60 ml/min/1.73 sqM); Potassium 3.5 mmol/L (3.5-5.1); Sodium 135 mmol/L (137-145)
[2021-06-04] MEDS: ASPIRIN 81 MG PO SCH (09:01)
[2021-06-04] MEDS: FUROSEMIDE 20 MG TAB PO SCH ×2 (09:01→16:30)
[2021-06-04] MEDS: AZITHROMYCIN 250 MG TAB PO SCH (09:01)
[2021-06-04] MEDS: METOPROLOL TARTRATE 50 MG TAB PO SCH ×2 (09:01→19:22)
[2021-06-04] MEDS: ENOXAPARIN 100 MG/ML SYRINGE SQ SCH (09:01)
[2021-06-04] MEDS: VENLAFAXINE HCL 75 MG TAB PO SCH ×2 (09:01→22:19)
[2021-06-04] MEDS: ARIPiprazole 10 MG TAB PO SCH (09:01)
[2021-06-04] MEDS: NYSTATIN 100,000 UNIT/ML SUSP 500,000 UNIT/5 ML CUP PO SCH ×4 (09:02→22:20)
[2021-06-04] MEDS: NON FORMULARY DRUG (Mirabegron [Myrbetriq] 25 MG Tablet) PO SCH (09:02)
[2021-06-04] MEDS: DILTIAZEM ORAL 30 MG TAB PO SCH ×2 (11:38→16:30)
[2021-06-04 11:43] LABS: Glucose,Whole Blood 89 mg/dL (75-99)
--- NOTE | 2021-06-04 13:29 | P.PN ---
Subjective This is a 58-year-old female with a history of chronic persistent fibrillation, aortic and mitral valve replacement, COPD. Patient presented to the hospital with exacerbation of COPD and bronchitis. Patient seen and examined at bedside, no acute distress. She denies any further shortness of breath, chest pain. Denies lightheadedness, dizziness. She continues to go into atrial fibrillation with rapid ventricular response. Overnight patient went into atrial fibrillation with RVR around 8-9pm. Patient given 10 mg IV Cardizem and started on a Cardizem drip at 7.5mg/hr. This morning telemetry reviewed patient is in atrial fibrillation with controlled ventricular rates. She is currently maintained on aspirin 81mg daily, Lipitor 40 mg daily, IV Cardizem, Lasix 20mg BID Lovenox 100 mg subcutaneously twice a day, she is receiving Coumadin, metoprolol titrate 100 mg twice a day.Labs reviewed, INR 3.0, sodium 135, potassium 29, serum creatinine 0.5. Blood pressure 152/74, heart rate 80s, 96% on 2L nasal cannula. GENERAL: Well-appearing, well-nourished and in no acute distress. NECK: Supple without JVD or thyromegaly. LUNGS: Breath sounds clear to auscultation bilaterally. Respiration equal and unlabored. No wheezes, rales or rhonchi. HEART: Irregular rate and rhythm Systolic murmur, No rubs or gallops. S1 and S2 heard. EXTREMITIES: Normal range of motion, no edema. No clubbing or cyanosis. Peripheral pulses intact. ASSESSMENT Exacerbation of COPD with bronchitis Chronic persistent fibrillation with rapid ventricular response Prior status post aortic and mitral valve replacement Prior nicotine dependence Dyslipidemia PLAN Increase Cardizem to 90mg TID Stop IV Cardizem Stop Lovenox Continue coumadin Continue statin and Lasix 20mg BID Continue cardiac telemetry Further recommendations based on clinical course Nurse Practitioner note has been reviewed, I agree with a documented findings and plan of care. Patient was seen and examined. Objective - Vital Signs Vital signs: Vital Signs Temp 97.6 F 06/04/21 03:56 Pulse 137 H 06/04/21 08:00 Resp 18 06/04/21 03:56 BP 152/74 06/04/21 03:56 Pulse Ox 83 L 06/04/21 12:15 Intake & Output 06/03/21 06/04/21 06/04/21 18:59 06:59 18:59 Intake Total 240 240 Output Total 900 Balance 240 -900 240 Weight 106.5 kg Intake: Oral 240 240 Output: Urine 900 Other: Voiding Method Bedside Commode Bedside Commode # Voids 1 # Bowel Movements 1 - Labs CBC & Chem 7: 06/02/21 04:32 06/04/21 08:04 Labs: Abnormal Lab Results - Last 24 Hours (Table) 06/03/21 06/03/21 06/04/21 Range/Units 16:49 20:01 06:02 PT (9.0-12.0) sec INR (<1.2) Sodium (137-145) mmol/L Chloride (98-107) mmol/L Carbon Dioxide (22-30) mmol/L BUN (7-17) mg/dL Glucose (74-99) mg/dL POC Glucose (mg/dL) 115 H 165 H 176 H (75-99) mg/dL 06/04/21 06/04/21 Range/Units 08:04 08:04 PT 29.0 H (9.0-12.0) sec INR 3.0 H (<1.2) Sodium 135 L (137-145) mmol/L Chloride 91 L (98-107) mmol/L Carbon Dioxide 38 H (22-30) mmol/L BUN 29 H (7-17) mg/dL Glucose 186 H (74-99) mg/dL POC Glucose (mg/dL) (75-99) mg/dL
--- NOTE | 2021-06-04 14:24 | P.DS ---
Providers Date of admission: 05/30/21 11:35 Expected date of discharge: 06/04/21 Attending physician: Gabo Castellon MD Consults: 05/30/21 12:12 Consult Physician Routine Consulting Provider: Tigist Tovar Consult Reason/Comments: CHF/Pneumonia, resp failure please evaluate Do you want consulting provider notified?: Yes 05/30/21 12:18 Consult Physician Routine Consulting Provider: Rob Ayers Consult Reason/Comments: CHF/afib resp failure Do you want consulting provider notified?: Yes Primary care physician: Stated None Hospital Course: Patient is a 49-year-old male with a PMH of coronary artery disease, systolic CHF, A. fib on Coumadin, type II DM, chronic kidney disease stage III, status post pacemaker placement, who presented to the emergency room with gradually worsening shortness of breath and bilateral lower extremity pitting edema. The patient was admitted for acute CHF exacerbation started on IV Lasix with cardiology consulted. The patient was also noted to be in A. fib with RVR for which she was started on Cardizem infusion and she was found to be subtherapeutic on Coumadin and was thereby bridged with Lovenox. She also received treatment for acute COPD exacerbation with IV Solu-Medrol as well as breathing treatments and azithromycin. The patient's respiratory status gradually improved and her Cardizem dose was gradually increased with improvement in her rate control with A. fib. The patient was seen and examined at the bedside on the day of discharge. She reported significant improvement in her breathing and denied any active complaints. She denied experiencing chest discomfort, nausea, vomiting, fever, chills, cough. The patient was also advised that she will need to follow-up with her pulmonary medicine Dr. for the pulmonary nodule that was incidentally found. The patient was strongly advised to follow-up with her primary care physician within the next 3 days as well as her video systems engineer. She is ready and eager to be discharged home. Physical Examination General: Non-toxic, in no acute distress, appears stated age, morbidly obese HEENT: NC/AT, anicteric sclerae, moist conjunctiva, no lid-lag, PERRLA Cardiovascular: S1/S2 wnl, no murmurs, rubs, or gallops Lungs: Clear to auscultation, normal respiratory effort, no accessory muscle use Abdominal: Soft, non-tender, non-distended, no guarding, rebound, or rigidity Skin: Warm, dry Extremities: No edema or contractures Psychiatric: Alert and oriented to person, place and time, appropriate affect Neuro: CN II-XII grossly intact, Strength 5/5 in all 4 extremities, Speech intact, Sensation to light touch grossly intact throughout Discharge diagnosis: Pulmonary nodule, Acute hypoxic respiratory failure secondary to acute CHF exacerbation and acute COPD exacerbation, A. fib with RVR, coronary artery disease, obesity, hyperlipidemia A total of 40 minutes of time were spent preparing this complex discharge summary. Patient Condition at Discharge: Stable Plan - Discharge Summary Discharge Rx Participant: No New Discharge Prescriptions: New Ipratropium-Albuterol Nebulize [Duoneb 0.5 mg-3 mg/3 ml Soln] 3 ml INHALATION QID 30 Days #6 pack Metoprolol Tartrate [Lopressor] 100 mg PO BID #30 tab predniSONE 0 mg PO DIRECTED 16 Days #40 tab Diltiazem Oral [Cardizem*] 90 mg PO TID #60 tab Continue Venlafaxine HCl [Effexor] 225 mg PO BID traMADol HCL 50 mg PO Q6H PRN PRN Reason: Pain Rosuvastatin [Crestor] 20 mg PO HS Levothyroxine Sodium [Synthroid] 25 mcg PO DAILY ARIPiprazole [Abilify] 10 mg PO DAILY Warfarin Sodium 6 mg PO W/SUPPER Fluticasone/Vilanterol [Breo Ellipta 100-25 Mcg Inhaler] 1 puff INHALATION RT-DAILY #1 each Warfarin [Coumadin] 1 mg PO W/SUPPER Pantoprazole [Protonix] 40 mg PO DAILY Mirabegron [Myrbetriq] 25 mg PO DAILY HYDROcodone/APAP 7.5-325MG [[place] 7.5-325] 1 tab PO BID PRN PRN Reason: Pain Aspirin EC [Ecotrin Low Dose] 81 mg PO DAILY ALPRAZolam [Xanax] 0.5 mg PO TID Furosemide [Lasix] 40 mg PO BID #30 tab Discontinued Enalapril [Vasotec] 5 mg PO DAILY Bisoprolol Fumarate [Zebeta] 10 mg PO DAILY Discharge Medication List ALPRAZolam [Xanax] 0.5 mg PO TID 05/30/21 [History] ARIPiprazole [Abilify] 10 mg PO DAILY 10/22/21 [History] Aspirin EC [Ecotrin Low Dose] 81 mg PO DAILY 05/30/21 [History] HYDROcodone/APAP 7.5-325MG [[place] 7.5-325] 1 tab PO BID PRN 05/30/21 [History] Levothyroxine Sodium [Synthroid] 25 mcg PO DAILY 05/30/21 [History] Mirabegron [Myrbetriq] 25 mg PO DAILY 05/30/21 [History] Pantoprazole [Protonix] 40 mg PO DAILY 05/30/21 [History] Rosuvastatin [Crestor] 20 mg PO HS 05/30/21 [History] Venlafaxine HCl [Effexor] 225 mg PO BID 05/30/21 [History] Warfarin Sodium 6 mg PO W/SUPPER 05/30/21 [History] Warfarin [Coumadin] 1 mg PO W/SUPPER 05/30/21 [History] traMADol HCL 50 mg PO Q6H PRN 05/30/21 [History] Ipratropium-Albuterol Nebulize [Duoneb 0.5 mg-3 mg/3 ml Soln] 3 ml INHALATION QID 30 Days #6 pack 06/03/21 [Rx] predniSONE 0 mg PO DIRECTED 16 Days #40 tab 06/03/21 [Rx] Diltiazem Oral [Cardizem*] 90 mg PO TID #60 tab 06/04/21 [Rx] Fluticasone/Vilanterol [Breo Ellipta 100-25 Mcg Inhaler] 1 puff INHALATION RT- DAILY #1 each 06/04/21 [Rx] Furosemide [Lasix] 40 mg PO BID #30 tab 06/04/21 [Rx] Metoprolol Tartrate [Lopressor] 100 mg PO BID #30 tab 06/04/21 [Rx] Follow up Appointment(s)/Referral(s): [facility] [NON-STAFF] - 1-2 Days [facility] [NON-STAFF] - Tigist Tovar MD [STAFF PHYSICIAN] - 1 Week Patient Instructions/Handouts: How to Stop Smoking (DC) Activity/Diet/Wound Care/Special Instructions: Dr Chuck Edwards is primary care physician and can be reached at [phone]. On your computed tomography scan incidentally found Right upper lobe spiculated nodule, this is an Incidental finding , This is a solitary pulmonary nodule. This needs to be worked up on outpatient basis. Please follow-up with pulmonary medicine physician in 4 weeks to formulate a plan for follow-up in this regard.
[2021-06-04] MEDS: HYDROcodone/APAP 7.5-325MG 1 EACH TAB PO PRN (16:33)
[2021-06-04 17:09] LABS: Glucose,Whole Blood 109 mg/dL (75-99)
[2021-06-04] MEDS ORDERED: WARFARIN 3 MG TAB PO ONE (18:00)
[2021-06-04] MEDS ORDERED: DILTIAZEM ORAL 30 MG TAB PO STA (19:13)
[2021-06-04 20:12] LABS: Glucose,Whole Blood 176 mg/dL (75-99)
[2021-06-04] MEDS: ATORVASTATIN 40 MG TAB PO SCH (22:19)
[2021-06-04] MEDS: SENNOSIDES 8.6 MG TAB PO SCH (22:19)
[2021-06-04] MEDS: DILTIAZEM ORAL 60 MG TAB PO SCH (22:20)
[2021-06-05] MEDS: methylPREDNISolone SOD SUCCI 40 MG/ML 1 ML VIAL IV SCH ×2 (00:50→08:40)
[2021-06-05] MEDS: FORMOTEROL FUMARATE 20 MCG/2 ML NEBU INHALATION SCH ×2 (06:03→19:39)
[2021-06-05] MEDS: IPRATROPIUM-ALBUTEROL 3 ML NEB INHALATION SCH (06:03)
[2021-06-05] MEDS: BUDESONIDE 1 MG/2 ML NEBU INHALATION SCH ×2 (06:05→19:39)
[2021-06-05 06:27] LABS: Glucose,Whole Blood 115 mg/dL (75-99)
[2021-06-05] MEDS: INSULIN ASPART (NovoLOG) 100 UNIT/ML VIAL SQ SCH ×4 (06:28→20:52)
[2021-06-05] MEDS: PANTOPRAZOLE 40 MG TABLET PO SCH (06:31)
[2021-06-05] MEDS: LEVOTHYROXINE 25 MCG TAB PO SCH (06:31)
[2021-06-05] MEDS: METOPROLOL TARTRATE 50 MG TAB PO SCH ×2 (08:11→20:51)
[2021-06-05] MEDS: FUROSEMIDE 20 MG TAB PO SCH ×2 (08:11→16:58)
[2021-06-05] MEDS: DILTIAZEM ORAL 60 MG TAB PO SCH ×3 (08:11→20:51)
[2021-06-05] MEDS: ASPIRIN 81 MG PO SCH (08:11)
[2021-06-05] MEDS: NYSTATIN 100,000 UNIT/ML SUSP 500,000 UNIT/5 ML CUP PO SCH ×4 (08:12→20:50)
[2021-06-05] MEDS: AZITHROMYCIN 250 MG TAB PO SCH (08:12)
[2021-06-05] MEDS: VENLAFAXINE HCL 75 MG TAB PO SCH ×2 (08:12→20:51)
[2021-06-05] MEDS: ARIPiprazole 10 MG TAB PO SCH (08:12)
[2021-06-05] MEDS: NON FORMULARY DRUG (Mirabegron [Myrbetriq] 25 MG Tablet) PO SCH (08:14)
[2021-06-05 08:34] LABS: INR 2.4 (<1.2); Prothrombin Time 23.1 sec (9.0-12.0)
[2021-06-05 08:45] LABS: African American GFR (CKD) >90 (>60 ml/min/1.73 sqM); Anion Gap 5 mmol/L; Blood Urea Nitrogen 29 mg/dL (7-17); Calcium 8.6 mg/dL (8.4-10.2); Carbon Dioxide 34 mmol/L (22-30); Chloride 93 mmol/L (98-107); Glucose 184 mg/dL (74-99); Non-African American GFR(CKD) >90 (>60 ml/min/1.73 sqM); Potassium 4.5 mmol/L (3.5-5.1); Sodium 132 mmol/L (137-145)
[2021-06-05] MEDS: ALPRAZolam 0.25 MG TAB PO PRN ×2 (10:24→20:51)
[2021-06-05 11:36] LABS: Glucose,Whole Blood 103 mg/dL (75-99)
--- NOTE | 2021-06-05 11:38 | P.PN ---
Subjective Patient was supposed to be discharged yesterday but discharge orders canceled as patient was tachycardic and went into RVR. Her verapamil dose was adjusted by cardiology. This morning her heart rate was fluctuating anywhere between 100- 147 on the monitor worker. Patient herself denies palpitation or dizziness. She is currently on oxygen and plan was to discharge her on oxygen. Objective - Vital Signs Vital signs: Vital Signs Temp 97.8 F 06/05/21 08:08 Pulse 154 H 06/05/21 08:15 Resp 16 06/05/21 08:15 BP 108/72 06/05/21 08:08 Pulse Ox 91 L 06/05/21 08:08 Intake & Output 06/04/21 06/05/21 06/05/21 18:59 06:59 18:59 Intake Total 1284 660 Balance 1284 660 Weight 110.7 kg Intake: Oral 1284 660 Other: Voiding Method Bedside Commode Bedside Commode # Voids 240 3 1 - Exam General: The patient is awake and alert, in no distress Eye: there is normal conjunctiva bilaterally. Neck: The neck is supple, there is no JVD. Cardiovascular: Irregularly irregular and tachycardic Normal S1-S2, no S3-S4, no murmurs. Respiratory: Lungs clear to auscultation bilaterally Gastrointestinal: Abdomen is soft, nontender Musculoskeletal: There is no pedal edema. Neurological:. Speech is normal. Skin: Skin is warm and dry - Labs CBC & Chem 7: 06/02/21 04:32 06/05/21 07:50 Labs: Abnormal Lab Results - Last 24 Hours (Table) 06/04/21 06/04/21 06/05/21 Range/Units 16:52 20:11 06:25 PT (9.0-12.0) sec INR (<1.2) Sodium (137-145) mmol/L Chloride (98-107) mmol/L Carbon Dioxide (22-30) mmol/L BUN (7-17) mg/dL Creatinine (0.52-1.04) mg/dL Glucose (74-99) mg/dL POC Glucose (mg/dL) 109 H 176 H 115 H (75-99) mg/dL 06/05/21 06/05/21 Range/Units 07:50 07:50 PT 23.1 H (9.0-12.0) sec INR 2.4 H (<1.2) Sodium 132 L (137-145) mmol/L Chloride 93 L (98-107) mmol/L Carbon Dioxide 34 H (22-30) mmol/L BUN 29 H (7-17) mg/dL Creatinine 0.46 L (0.52-1.04) mg/dL Glucose 184 H (74-99) mg/dL POC Glucose (mg/dL) (75-99) mg/dL Assessment and Plan Assessment: This is a 60-year-old female with complex past medical history noted below that presented to the hospital with worsening shortness of breath and bilateral lower extremity edema. Patient was evaluated in the ER and admitted for further management of her medical problems noted below. 1. Atrial fibrillation with RVR, requiring IV Cardizem drip on presentation. Currently on oral Cardizem and metoprolol. Dose adjusted by cardiology. Heart rate not well controlled. Trying to avoid amiodarone given underlying lung disease. On anticoagulation with Coumadin. Echocardiogram revealed 2. Acute COPD exacerbation, treated with IV steroids and bronchodilators. I'll transition steroids to oral prednisone 40 mg daily for short course. 3. Acute hypoxic respiratory failure secondary to above. Patient will require O2 supplement when going home. CT angiogram showed no evidence of PE. 4. Chronic medical problems: Coronary artery disease with prior CABG, valvular heart disease status post mitral and aortic valve replacement, spiculated right upper lobe mass measuring 2 cm with plan to do further workup outpatient, morbid obesity, hyperlipidemia, hypothyroidism Today, I reviewed her medication list and lab work results. Heart rate remained not well controlled. We will attempt to get the patient up and ambulate in the hallway monitor heart rate closely. Discuss further with cardiology.
--- NOTE | 2021-06-05 13:29 | P.PN ---
Subjective This is a 58-year-old female with a history of chronic persistent fibrillation, aortic and mitral valve replacement, COPD. Patient presented to the hospital with exacerbation of COPD and bronchitis. Patient seen and examined at bedside, no acute distress. She denies any further shortness of breath, chest pain. Denies lightheadedness, dizziness. She continues to go into atrial fibrillation with rapid ventricular response. Patient's cardizem was increased again to 120mg TID afternoon. This morning telemetry reviewed patient is in atrial fibrillation in the 150s less than 5 minutes, patient's HR 90s-115. She is currently maintained on aspirin 81mg daily, Lipitor 40 mg daily, Cardizem 120mg TID, Lasix 20mg BID Lovenox 100 mg subcutaneously twice a day, she is receiving Coumadin, metoprolol titrate 100 mg twice a day.Labs reviewed, INR 2.4, sodium 132, potassium 4.5, BUN 29, serum creatinine 0.46 Blood pressure 108/72, 95, afebrile on 2L nasal cannula GENERAL: Well-appearing, well-nourished and in no acute distress. NECK: Supple without JVD or thyromegaly. LUNGS: Breath sounds clear to auscultation bilaterally. Respiration equal and unlabored. No wheezes, rales or rhonchi. HEART: Irregular rate and rhythm Systolic murmur, No rubs or gallops. S1 and S2 heard. EXTREMITIES: Normal range of motion, no edema. No clubbing or cyanosis. Peripheral pulses intact. ASSESSMENT Exacerbation of COPD with bronchitis Chronic persistent fibrillation with rapid ventricular response Prior status post aortic and mitral valve replacement Prior nicotine dependence Dyslipidemia PLAN Agree with increase in Cardizem to 120mg TID We want to avoid amiodarone due to patient's COPD Continue coumadin Continue statin and Lasix 20mg BID Continue cardiac telemetry Daily INR Further recommendations based on clinical course Nurse Practitioner note has been reviewed, I agree with a documented findings and plan of care. Patient was seen and examined. Objective - Vital Signs Vital signs: Vital Signs Temp 97.8 F 06/05/21 08:08 Pulse 154 H 06/05/21 08:15 Resp 16 06/05/21 08:15 BP 108/72 06/05/21 08:08 Pulse Ox 91 L 06/05/21 08:08 Intake & Output 06/04/21 06/05/2121 18:59 06:59 18:59 Intake Total 1284 1320 Balance 1284 1320 Weight 110.7 kg Intake: Oral 1284 1320 Other: Voiding Method Bedside Commode Bedside Commode # Voids 240 3 1 - Labs CBC & Chem 7: 06/02/21 04:32 06/05/21 07:50 Labs: Abnormal Lab Results - Last 24 Hours (Table) 06/04/21 06/04/21 06/05/21 Range/Units 16:52 20:11 06:25 PT (9.0-12.0) sec INR (<1.2) Sodium (137-145) mmol/L Chloride (98-107) mmol/L Carbon Dioxide (22-30) mmol/L BUN (7-17) mg/dL Creatinine (0.52-1.04) mg/dL Glucose (74-99) mg/dL POC Glucose (mg/dL) 109 H 176 H 115 H (75-99) mg/dL 06/05/21 06/05/21 06/05/21 Range/Units 07:50 07:50 11:34 PT 23.1 H (9.0-12.0) sec INR 2.4 H (<1.2) Sodium 132 L (137-145) mmol/L Chloride 93 L (98-107) mmol/L Carbon Dioxide 34 H (22-30) mmol/L BUN 29 H (7-17) mg/dL Creatinine 0.46 L (0.52-1.04) mg/dL Glucose 184 H (74-99) mg/dL POC Glucose (mg/dL) 103 H (75-99) mg/dL
[2021-06-05 16:41] LABS: Glucose,Whole Blood 154 mg/dL (75-99)
[2021-06-05] MEDS ORDERED: WARFARIN 3 MG TAB PO ONE (18:00)
[2021-06-05] MEDS ORDERED: METOPROLOL TARTRATE 5 MG/5 ML VIAL IVP STA (18:33)
[2021-06-05] MEDS: HYDROcodone/APAP 7.5-325MG 1 EACH TAB PO PRN (19:45)
[2021-06-05] MEDS: ATORVASTATIN 40 MG TAB PO SCH (20:51)
[2021-06-05] MEDS: SENNOSIDES 8.6 MG TAB PO SCH (20:51)
[2021-06-05 21:10] LABS: Glucose,Whole Blood 131 mg/dL (75-99)
[2021-06-06] MEDS: INSULIN ASPART (NovoLOG) 100 UNIT/ML VIAL SQ SCH ×4 (06:12→21:54)
[2021-06-06 06:16] LABS: Glucose,Whole Blood 78 mg/dL (75-99)
[2021-06-06] MEDS: LEVOTHYROXINE 25 MCG TAB PO SCH (06:18)
[2021-06-06] MEDS: PANTOPRAZOLE 40 MG TABLET PO SCH (06:18)
[2021-06-06] MEDS: IPRATROPIUM-ALBUTEROL 3 ML NEB INHALATION PRN ×3 (07:11→23:19)
[2021-06-06] MEDS: FORMOTEROL FUMARATE 20 MCG/2 ML NEBU INHALATION SCH ×2 (07:11→20:10)
[2021-06-06] MEDS: BUDESONIDE 1 MG/2 ML NEBU INHALATION SCH ×2 (07:12→20:10)
[2021-06-06] MEDS: NYSTATIN 100,000 UNIT/ML SUSP 500,000 UNIT/5 ML CUP PO SCH ×4 (07:44→21:54)
[2021-06-06] MEDS: DILTIAZEM ORAL 60 MG TAB PO SCH ×3 (07:44→21:53)
[2021-06-06] MEDS: FUROSEMIDE 20 MG TAB PO SCH ×2 (07:44→17:04)
[2021-06-06] MEDS: METOPROLOL TARTRATE 50 MG TAB PO SCH ×2 (07:44→21:52)
[2021-06-06] MEDS: predniSONE 20 MG TAB PO SCH (07:44)
[2021-06-06] MEDS: ASPIRIN 81 MG PO SCH (07:44)
[2021-06-06] MEDS: VENLAFAXINE HCL 75 MG TAB PO SCH ×2 (07:45→21:52)
[2021-06-06] MEDS: ARIPiprazole 10 MG TAB PO SCH (07:45)
[2021-06-06] MEDS: NON FORMULARY DRUG (Mirabegron [Myrbetriq] 25 MG Tablet) PO SCH (07:49)
[2021-06-06 08:13] LABS: INR 2.6 (<1.2); Prothrombin Time 25.6 sec (9.0-12.0)
[2021-06-06] MEDS: ALPRAZolam 0.5 MG TAB PO PRN ×2 (08:58→17:06)
--- NOTE | 2021-06-06 11:15 | P.PN ---
Subjective Progress Note Date: 06/06/21 Patient remained in A. fib with RVR with a heart rate around 150s throughout the night despite taking her Cardizem and metoprolol. She also required one time dose of IV metoprolol last night. She remained hemodynamically stable. Objective - Vital Signs Vital signs: Vital Signs Temp 98.0 F 06/06/21 07:39 Pulse 150 H 06/06/21 07:39 Resp 16 06/06/21 07:51 BP 130/98 06/06/21 07:39 Pulse Ox 91 L 06/06/21 07:39 Intake & Output 06/05/21 06/06/21 06/06/21 18:59 06:59 18:59 Intake Total 2040 462 Output Total 900 Balance 0 -438 Intake: Oral 2039 462 Output: Urine 900 Other: Voiding Method Bedside Commode Bedside Commode # Voids 2 2 2 - Exam General: The patient is awake and alert, in no distress Eye: there is normal conjunctiva bilaterally. Neck: The neck is supple, there is no JVD. Cardiovascular: Irregularly irregular and tachycardic Normal S1-S2, no S3-S4, no murmurs. Respiratory: Lungs clear to auscultation bilaterally Gastrointestinal: Abdomen is soft, nontender Musculoskeletal: There is no pedal edema. Neurological:. Speech is normal. Skin: Skin is warm and dry - Labs CBC & Chem 7: 06/02/21 04:32 06/05/21 07:50 Labs: Abnormal Lab Results - Last 24 Hours (Table) 06/05/21 06/05/21 06/05/21 Range/Units 11:34 16:40 20:50 PT (9.0-12.0) sec INR (<1.2) POC Glucose (mg/dL) 103 H 154 H 131 H (75-99) mg/dL 06/06/21 Range/Units 07:37 PT 25.6 H (9.0-12.0) sec INR 2.6 H (<1.2) POC Glucose (mg/dL) (75-99) mg/dL Assessment and Plan Assessment: This is a 60-year-old female with complex past medical history noted below that presented to the hospital with worsening shortness of breath and bilateral lower extremity edema. Patient was evaluated in the ER and admitted for further management of her medical problems noted below. 1. Atrial fibrillation with RVR, requiring IV Cardizem drip on presentation. Currently on oral Cardizem and metoprolol. Dose adjusted by cardiology. Heart rate not well controlled. Trying to avoid amiodarone given underlying lung disease. On anticoagulation with Coumadin. Echocardiogram reviewed 2. Acute COPD exacerbation, treated with IV steroids and bronchodilators. I'll transition steroids to oral prednisone 40 mg daily for short course. 3. Acute hypoxic respiratory failure secondary to above. Patient will require O2 supplement when going home. CT angiogram showed no evidence of PE. 4. Chronic medical problems: Coronary artery disease with prior CABG, valvular heart disease status post mitral and aortic valve replacement, spiculated right upper lobe mass measuring 2 cm with plan to do further workup outpatient, morbid obesity, hyperlipidemia, hypothyroidism Today, I reviewed her medication list and lab work results. Heart rate remained not well controlled. Awaiting further recommendations by cardiology
[2021-06-06 11:55] LABS: Glucose,Whole Blood 113 mg/dL (75-99)
--- NOTE | 2021-06-06 12:11 | P.PN ---
Subjective This is a 58-year-old female with a history of chronic persistent fibrillation, aortic and mitral valve replacement, COPD. Patient presented to the hospital with exacerbation of COPD and bronchitis. Patient seen and examined at bedside, no acute distress. She denies any further shortness of breath, chest pain. Denies lightheadedness, dizziness. She continues to go into atrial fibrillation with rapid ventricular response. Overnight HR was in the 150s, she was given IV lopressor 100mg. This morning telemetry reviewed patient is controlled atrial fibrillation HR 80s-90s. She is currently maintained on aspirin 81mg daily, Lipitor 40 mg daily, Cardizem 120mg TID, Lasix 20mg BID Lovenox 100 mg subcutaneously twice a day, she is receiving Coumadin, metoprolol titrate 100 mg twice a day.Labs reviewed, INR 2.6. Blood pressure 119/73, heart rate 73, afebrile maintaining oxygen saturations on 2 L nasal cannula GENERAL: Well-appearing, well-nourished and in no acute distress. NECK: Supple without JVD or thyromegaly. LUNGS: Breath sounds diminished to auscultation bilaterally. Respiration equal and unlabored. No wheezes, rales or rhonchi. HEART: Irregular rate and rhythm Systolic murmur, No rubs or gallops. S1 and S2 heard. EXTREMITIES: Normal range of motion, no edema. No clubbing or cyanosis. Peripheral pulses intact. ASSESSMENT Exacerbation of COPD with bronchitis Chronic persistent fibrillation with rapid ventricular response Prior status post aortic and mitral valve replacement Prior nicotine dependence Dyslipidemia PLAN Continue Cardizem to 120mg TID We want to avoid amiodarone due to patient's underlying lung disease Continue coumadin Continue statin and Lasix 20mg BID From a cardiology perspective, ok to discharge patient pending pulmonary recommendations/clearance. Nurse Practitioner note has been reviewed, I agree with a documented findings and plan of care. Patient was seen and examined. Objective - Vital Signs Vital signs: Vital Signs Temp 97.8 F 06/06/21 11:36 Pulse 73 06/06/21 11:36 Resp 18 06/06/21 11:36 BP 119/73 06/06/21 11:36 Pulse Ox 91 L 06/06/21 11:36 Intake & Output 06/05/21 06/06/21 06/06/21 18:59 06:59 18:59 Intake Total 2040 462 Output Total 900 Balance 2039 - Intake: Oral 2039 Output: Urine 900 Other: Voiding Method Bedside Commode Bedside Commode # Voids 2 2 2 - Labs CBC & Chem 7: 06/02/21 04:32 06/05/21 07:50 Labs: Abnormal Lab Results - Last 24 Hours (Table) 06/05/21 06/05/21 06/06/21 Range/Units 16:40 20:50 07:37 PT 25.6 H (9.0-12.0) sec INR 2.6 H (<1.2) POC Glucose (mg/dL) 154 H 131 H (75-99) mg/dL 06/06/21 Range/Units 11:41 PT (9.0-12.0) sec INR (<1.2) POC Glucose (mg/dL) 113 H (75-99) mg/dL
[2021-06-06] MEDS ORDERED: METOPROLOL TARTRATE 50 MG TAB PO STA (16:27)
[2021-06-06 17:13] LABS: Glucose,Whole Blood 143 mg/dL (75-99)
[2021-06-06] MEDS ORDERED: WARFARIN 5 MG TAB PO ONE (18:00)
[2021-06-06 20:27] LABS: Glucose,Whole Blood 137 mg/dL (75-99)
[2021-06-06] MEDS: ATORVASTATIN 40 MG TAB PO SCH (21:52)
[2021-06-06] MEDS: SENNOSIDES 8.6 MG TAB PO SCH (21:53)
[2021-06-07 06:08] LABS: Glucose,Whole Blood 145 mg/dL (75-99)
[2021-06-07] MEDS: INSULIN ASPART (NovoLOG) 100 UNIT/ML VIAL SQ SCH ×4 (06:30→21:09)
[2021-06-07] MEDS: PANTOPRAZOLE 40 MG TABLET PO SCH (06:30)
[2021-06-07] MEDS: LEVOTHYROXINE 25 MCG TAB PO SCH (06:30)
[2021-06-07] MEDS: ALPRAZolam 0.5 MG TAB PO PRN ×2 (06:31→21:09)
[2021-06-07] MEDS: BUDESONIDE 1 MG/2 ML NEBU INHALATION SCH ×2 (08:22→20:41)
[2021-06-07] MEDS: FORMOTEROL FUMARATE 20 MCG/2 ML NEBU INHALATION SCH (08:22)
[2021-06-07] MEDS: predniSONE 20 MG TAB PO SCH (09:02)
[2021-06-07] MEDS: ASPIRIN 81 MG PO SCH (09:03)
[2021-06-07] MEDS: METOPROLOL TARTRATE 50 MG TAB PO SCH ×2 (09:03→21:09)
[2021-06-07] MEDS: FUROSEMIDE 20 MG TAB PO SCH (09:03)
[2021-06-07] MEDS: DILTIAZEM ORAL 60 MG TAB PO SCH ×3 (09:03→21:08)
[2021-06-07] MEDS: ARIPiprazole 10 MG TAB PO SCH (09:04)
[2021-06-07] MEDS: VENLAFAXINE HCL 75 MG TAB PO SCH ×2 (09:05→21:08)
[2021-06-07] MEDS: NYSTATIN 100,000 UNIT/ML SUSP 500,000 UNIT/5 ML CUP PO SCH ×4 (09:05→21:12)
[2021-06-07] MEDS: NON FORMULARY DRUG (Mirabegron [Myrbetriq] 25 MG Tablet) PO SCH (09:08)
[2021-06-07] MEDS: MAGNESIUM HYDROXIDE 2,400 MG/10 ML CUP PO PRN (09:10)
[2021-06-07 10:15] LABS: Basophils # (A) 0.1 k/uL (0-0.2); Basophils % (A) 1 %; Eosinophils # (A) 0.1 k/uL (0-0.7); Eosinophils % (A) 1 %; HCT 37.7 % (34.0-46.0); Hypochromasia Slight; Lymphocytes # (A) 1.9 k/uL (1.0-4.8); Lymphocytes % (A) 9 %; MCH 31.5 pg (25.0-35.0); MCHC 31.9 g/dL (31.0-37.0); MCV 98.9 fL (80.0-100.0); Mean Platelet Volume 7.7; Monocytes # (A) 2.3 k/uL (0-1.0); Monocytes % (A) 11 %; Neutrophils # (A) 15.8 k/uL (1.3-7.7); Neutrophils % (A) 78 %; Platelet Count 258 k/uL (150-450); RBC 3.81 m/uL (3.80-5.40); WBC 20.3 k/uL (3.8-10.6)
[2021-06-07 10:36] LABS: African American GFR (CKD) >90 (>60 ml/min/1.73 sqM); Anion Gap 4 mmol/L; Blood Urea Nitrogen 25 mg/dL (7-17); Calcium 8.6 mg/dL (8.4-10.2); Carbon Dioxide 37 mmol/L (22-30); Chloride 94 mmol/L (98-107); Glucose 121 mg/dL (74-99); Magnesium 2.1 mg/dL (1.6-2.3); Non-African American GFR(CKD) >90 (>60 ml/min/1.73 sqM); Sodium 135 mmol/L (137-145)
[2021-06-07 10:54] LABS: INR 2.4 (<1.2); Prothrombin Time 23.5 sec (9.0-12.0)
[2021-06-07 11:33] LABS: Glucose,Whole Blood 93 mg/dL (75-99)
[2021-06-07] MEDS: AMIODARONE 200 MG TAB PO SCH ×2 (11:37→21:08)
[2021-06-07] MEDS: IPRATROPIUM-ALBUTEROL 3 ML NEB INHALATION PRN ×3 (12:34→20:41)
--- NOTE | 2021-06-07 13:31 | XR ---
EXAMINATION TYPE: XR chest 1V portable DATE OF EXAM: 06/07/2021 COMPARISON: Chest x-ray 05/31/2021, chest CT 05/30/2021 HISTORY: Dyspnea TECHNIQUE: Single frontal view of the chest is obtained. FINDINGS: Patient is post median sternotomy and cardiac valve replacement. Cardiac mediastinal silho uette is stable, heart is enlarged. Interstitium is increased. There is no evident pneumothorax or pl eural effusion. There are overlying artifacts. Spiculated right upper lung lung mass seen on prior CT is likely present in the right midlung laterally superimposed ribs. IMPRESSION: Correlate for possible pulmonary venous hypertension and interstitial edema. There is un derlying interstitial lung disease. Findings suspicious for bronchogenic carcinoma.
--- NOTE | 2021-06-07 14:37 | P.PN ---
Subjective Patient heart rate was controlled last night in the 90s. That this morning back up to 150 with A. fib with RVR. Objective - Vital Signs Vital signs: Vital Signs Temp 97.8 F 06/07/21 04:00 Pulse 120 H 06/07/21 12:49 Resp 32 H 06/07/21 11:40 BP 126/88 06/07/21 11:40 Pulse Ox 90 L 06/07/21 11:40 Intake & Output 06/06/21 06/07/21 06/07/21 18:59 06:59 18:59 Intake Total 824 720 600 Output Total 1175 Balance -351 720 600 Weight 105 kg Intake: Oral 824 720 600 Output: Urine 1175 Other: Voiding Method Bedside Commode Bedside Commode # Voids 2 2 1 - Exam General: The patient is awake and alert, in no distress Eye: there is normal conjunctiva bilaterally. Neck: The neck is supple, there is no JVD. Cardiovascular: Irregularly irregular and tachycardic Normal S1-S2, no S3-S4, no murmurs. Respiratory: Lungs clear to auscultation bilaterally Gastrointestinal: Abdomen is soft, nontender Musculoskeletal: There is no pedal edema. Neurological:. Speech is normal. Skin: Skin is warm and dry - Labs CBC & Chem 7: 06/07/21 09:37 06/07/21 09:37 Labs: Abnormal Lab Results - Last 24 Hours (Table) 06/06/21 06/06/21 06/07/21 Range/Units 16:53 20:26 06:06 WBC (3.8-10.6) k/uL Neutrophils # (1.3-7.7) k/uL Monocytes # (0-1.0) k/uL PT (9.0-12.0) sec INR (<1.2) Sodium (137-145) mmol/L Chloride (98-107) mmol/L Carbon Dioxide (22-30) mmol/L BUN (7-17) mg/dL Glucose (74-99) mg/dL POC Glucose (mg/dL) 143 H 137 H 145 H (75-99) mg/dL 06/07/21 06/07/21 06/07/21 Range/Units 09:37 09:37 09:37 WBC 20.3 H (3.8-10.6) k/uL Neutrophils # 15.8 H (1.3-7.7) k/uL Monocytes # 2.3 H (0-1.0) k/uL PT 23.5 H (9.0-12.0) sec INR 2.4 H (<1.2) Sodium 135 L (137-145) mmol/L Chloride 94 L (98-107) mmol/L Carbon Dioxide 37 H (22-30) mmol/L BUN 25 H (7-17) mg/dL Glucose 121 H (74-99) mg/dL POC Glucose (mg/dL) (75-99) mg/dL Assessment and Plan Assessment: This is a 60-year-old female with complex past medical history noted below that presented to the hospital with worsening shortness of breath and bilateral lower extremity edema. Patient was evaluated in the ER and admitted for further management of her medical problems noted below. 1. Atrial fibrillation with RVR, requiring IV Cardizem drip on presentation. Currently on oral Cardizem and metoprolol. Dose adjusted by cardiology. Heart rate not well controlled. Trying to avoid amiodarone given underlying lung disease. On anticoagulation with Coumadin. Echocardiogram reviewed 2. Acute COPD exacerbation, treated with IV steroids and bronchodilators. I'll transition steroids to oral prednisone 40 mg daily for short course. 3. Acute hypoxic respiratory failure secondary to above. Patient will require O2 supplement when going home. CT angiogram showed no evidence of PE. 4. Chronic medical problems: Coronary artery disease with prior CABG, valvular heart disease status post mitral and aortic valve replacement, spiculated right upper lobe mass measuring 2 cm concerning for malignancy with plan to do further workup outpatient, morbid obesity, hyperlipidemia, hypothyroidism Today, I reviewed her medication list and lab work results. Heart rate remained not well controlled. Awaiting further recommendations by cardiology I ordered echocardiogram
--- NOTE | 2021-06-07 14:38 | PN ---
PROGRESS NOTE Mrs. Reddy is a 60-year-old female with a history of aortic and mitral valve replacement, history of chronic tobacco use and history of atrial fibrillation who presented with progressive dyspnea and exacerbation of COPD. She continues to have episodes of rapid ventricular response on and off. She continues to be dyspneic, although not as severe. She denies any chest pain. She denies any dizziness. She is coughing. She denies any nausea or vomiting. She continues to be at this time on aspirin once a day, Coumadin, Lipitor 40 mg daily, diltiazem CD 120 mg three times a day, Lasix 40 mg twice a day, and metoprolol tartrate 100 mg twice a day in addition to prednisone and Effexor. PHYSICAL EXAMINATION: Blood pressure 126/80. Her heart rate is running in the 90s. LUNGS: Decreased air exchange bilaterally with a few wheezes. HEART: Irregularly irregular. S1, S2. No S3, with prosthetic mitral valve sounds and a systolic murmur. ABDOMEN: Soft, nontender. EXTREMITIES: No edema. LAB DATA: INR of 2.4. Her white blood cells are 20.3, hemoglobin of 12. BUN and creatinine are 25 and 0.58. Her NT proBNP is down to 2460. Her chest x-ray shows interstitial edema with a question of a mass that could represent bronchogenic carcinoma. IMPRESSION: 1. Symptoms of progressive dyspnea with exacerbation of chronic obstructive pulmonary disease and an element of congestive heart failure. 2. Status post mitral and aortic valve replacement. 3. Chronic persistent atrial fibrillation with persistent tachyarrhythmia. 4. Lung mass. Rule out malignancy. 5. Prior history of smoking. RECOMMENDATIONS: In view of the persistent episodes of tachyarrhythmia, I will add amiodarone 400 mg twice a day to her regimen. Will follow her INR closely. Patient has been followed by Dr. Stewart regarding her lung status. Depending on her progress, further recommendations will be made. MMODL / IJN: [id number] /
[2021-06-07] MEDS ORDERED: CEFEPIME 2 GM in SODIUM CHLORIDE 0.9% 100 ML IVPB ONE (16:00)
--- NOTE | 2021-06-07 16:35 | P.PN ---
Subjective Progress Note Date: 06/07/21 Principal diagnosis: Acute hypoxic respiratory failure secondary to acute exacerbation of COPD and atrial fibrillation/flutter with RVR. 58-year-old female patient was transferred to us from an outside hospital for worsening shortness of breath and acute respiratory distress. The patient presented to her primary care physician with worsening shortness of breath associated with some increased dyspnea and wheeze. She is known to have COPD and she quit smoking back in December 2020. She is smoking up to 2 pack of cigarettes a day and she did that since the age of 11. She had increased cough and chest tightness along with some light yellow sputum production. Her cough got worse as the patient was having increased wheezing and shortness of breath and for that reason she presented to her physician. She was referred to the emergency department in the ED the patient was found to have a pulse ox in the low 80s. She wason 2 L about 2 by nasal cannula. She was also in atrial fibrillation with rapid ventricular response and she was started on a Cardizem drip. She was quite short of breath. Chest x-ray showed post thoracotomy changes. Cardiac enzymes were negative. INR was at 1.6. Patient was transferred to our hospital for further care. At the time of arrival to the ICU, she was already on BiPAP at a pressure of 10/5 cm of water with an FiO2 of 40%. She was feeling better. Her breathing was less labored. She denied having any chest pain. She was started on a Cardizem drip for heart rate was under better control. I reviewed the blood work that was sent over from the other hospital and the patient had a sodium level of 136, potassium of 4.5, serum bicarbonate 35, glucose of 150, AST of 56, creatinine of 0.7, ALT of 61, proBNP level of 3870, white cell count was at 13.8 with hemoglobin of 12.4. Chest x-ray showed "sternotomy with cardiac valve replacement. Note that the patient has undergone previous coronary artery bypass surgery and aortic/mitral valve replacement. Her EKG was showing A. fib/flutter and in our ICU, she was started in the front the rhythm with variable conduction response. Her most recent prwas done on 05/27/2021 and the patient was found to have a normal ejection fraction of 55%, right ventricular systolic pressure was estimated to be 52. There was severe increase in left atrial diameter, normal functioning mechanical mitral valve and normal functioning mechanical aortic valve. She had moderate degree of tricuspid regurgitation. At a time of my evaluation, the patient was awake and alert. She was feeling better. She was less short of breath. She wanted to come off the BiPAP mask. She was on IV heparin. She was also on Cardizem drip running at 5 mg an hour. She was still in atrial fibrillation/flutter. She was started on DuoNeb nebulized treatments around the clock. She was given also dose of Bumex 2 mg IV in addition to IV Solu-Medrol prior to her transfer here to our hospital through the [facility] catheter was inserted. On today's evaluation of 05/31/2021, the patient is off the BiPAP and currently she is on oxygen at 8 L per minute. Note that overnight, she was using the BiPAP on and off as the patient was desaturating. As mentioned earlier, the patient was seen in consultation. She was a case of an acute COPD exacerbation and she was acutely bronchospastic and wheezy. She also presented with atrial fibrillation with rapid ventricular response associated with a Cardizem drip. She was already on long-term and coagulation with warfarin and she was supratherapeutic.. As part of further workup, a CT angiogram was done yesterday and there was no evidence of any pulmonary embolism. There was a spiculated nodule in the right upper lobe, suspicious for malignancy and this was measuring around 2 cm in size. Patchy infiltrates/atelectasis lower lobes bilaterally. The pulmonary arteries were patent. No evidence of any embolism. No evidence of any mediastinal lymphadenopathy. The patient also has background emphysema. For now, the patient presented with bronchodilators and the patient on DuoNeb nebulized treatments around the clock. She is on Cardizem drip at 15 mg an hour and her atrial fibrillation and her rate was under better control. We'll morning activities, her heart rate up again. She is free of any chest pain. She remains on IV cefepime. The patient is being diuresis with IV Lasix once a day 40 mg IV push. Morning INR is at 4.6 with a PT of 44.3. Serum bicarb is at 40. BUN is at 27 with a creatinine of 0.6. Troponins are 0.01 and 0.03 respectively, free T4 was at 1.5, UA was negative. White is at 4.2 with a hemoglobin of 11.9. 06/01/2021 the patient continues to improve and the patient is feeling better, less shortness of breath compared to yesterday. She is currently on 5 L of oxygen by nasal cannula. She did not use the BiPAP overnight. When at rest and during sleep, H of ablations under better control. When awake on a chair, heart rate goes up to the 140s max. She remains on Cardizem drip at 10 mg an hour. Metoprolol dose has been modified to 100 mg 3 times a day. The same time the patient's INR is therapeutic with a INR of 2.3 on today's evaluation. Serum bicarbonate 39. Normal renal function. White cell count 11. Denies having any chest pain. Overall fluid balance has been -3 L over the past 24 hours. No an maria r. No palpitations. No significant swelling in lower extremities. She remains on Lasix 40 mg IV every 24 hours. She remains on a Medrol 60 mg every 6 hours. No other significant events overnight. She is off the BiPAP for now. Patient was reevaluated today on 06/02/21, patient remains in the ICU, remains in atrial fibrillation with RVR, remains on Cardizem at 10 mg per hour. Patient has IV fluid at KVO, is also on 3 L nasal cannula with O2 saturation 93%, intermittently on BiPAP 10/5 and 40%. Patient is on Lovenox, and Coumadin, INR today is 1.7. Clinically the patient is feeling better, she did weaned from BiPAP last night, seems to be more comfortable, and the rate seems to be a bit more controlled but not fully controlled yet. No chest x-ray was done today, however chest x-ray from 2 days ago showed no evidence of active disease. CBC today is relatively normal electrolytes are normal renal profile is normal INR is 1.7. Patient remains on updrafts, remains on Lasix 40 mg IV push daily, Cardizem will be changed to oral today, remains empirically on antibiotics in the form of Zithromax. Patient is also on Solu-Medrol 60 every 6, and metoprolol. Patient was reevaluated today on 06/07/21, I saw this patient last about 5 days ago, and I have felt that the patient could be discharged home on the time, patient was cleared from the pulmonary perspective because her lungs have completely cleared and she responded well to bronchodilators. However discharge could not be completed mostly because the patient kept having intermittent episodes of atrial fibrillation and RVR, and cardiology seems to be working on controlling her atrial fibrillation/flutter. In the meantime the patient is developing now recurrent cough and wheezing, and I was asked to see her again today. Patient is indeed having intermittent shortness of breath, but upon my evaluation today, she stated to me that she is feeling fine. On the monitor, her heart rate was in the 100 range, atrial flutter, but last night she had a rate as high as 150/A. fib with RVR. Patient is on amiodarone, she is also on diltiazem at 120 mg by mouth 3 times a day. And she is also on metoprolol 100 mg twice a day which could be a contributing factor to her COPD exacerbation. For her COPD the patient is on DuoNeb updrafts, she is also on Perforomist which I have discontinued as it may be triggering her atrial fibrillation with RVR. Labs today showed a set of 20.3 hemoglobin of 12 INR is 2.4. Renal profile is normal. Chest x-ray today is showing interstitial edema, and possible left lower lobe pneumonia, pro-calcitonin is pending and BNP is 2460.. In the meantime I have recommended antibiotics empirically. Her dose of diuretics was increased by me today. Objective - Vital Signs Vital signs: Vital Signs Temp 97.8 F 06/07/21 04:00 Pulse 112 H 06/07/21 16:18 Resp 32 H 06/07/21 11:40 BP 126/88 06/07/21 11:40 Pulse Ox 90 L 06/07/21 11:40 Intake & Output 06/06/21 06/07/21 06/07/21 18:59 06:59 18:59 Intake Total 824 720 600 Output Total 1175 Balance -351 720 600 Weight 105 kg Intake: Oral 824 720 600 Output: Urine 1175 Other: Voiding Method Bedside Commode Bedside Commode # Voids 2 2 1 - Exam Physical Exam: Revealed a 60-year-old female in no distress, on 4 L nasal cannula. Head: Atraumatic, normocephalic. HEENT:[Neck is supple.] [No neck masses.] [No thyromegaly.] [No JVD.] Chest: [Diminished breath sound bilaterally, minimal wheezing on forced expiratory maneuver. Cardiac Exam: Irregular irregular rhythm. [Normal S1 and S2, no S3 gallop, no murmur.] Abdomen: [Obese, Soft, nontender, no megaly, no rebound, no guarding, normal bowel sounds.] Extremities: [No clubbing, no edema, no cyanosis.] Good pulses bilaterally. Musculoskeletal: No deformities and no limitation in range of motion. Neurological Exam: [No focal neurologic deficit. Alert and oriented 3. Psychiatric: Normal mood affect and normal mental status examination. Skin: No rashes.] - Labs CBC & Chem 7: 06/07/21 09:37 06/07/21 09:37 Labs: Abnormal Lab Results - Last 24 Hours (Table) 06/06/21 06/06/21 06/07/21 Range/Units 16:53 20:26 06:06 WBC (3.8-10.6) k/uL Neutrophils # (1.3-7.7) k/uL Monocytes # (0-1.0) k/uL PT (9.0-12.0) sec INR (<1.2) Sodium (137-145) mmol/L Chloride (98-107) mmol/L Carbon Dioxide (22-30) mmol/L BUN (7-17) mg/dL Glucose (74-99) mg/dL POC Glucose (mg/dL) 143 H 137 H 145 H (75-99) mg/dL 06/07/21 06/07/21 06/07/21 Range/Units 09:37 09:37 09:37 WBC 20.3 H (3.8-10.6) k/uL Neutrophils # 15.8 H (1.3-7.7) k/uL Monocytes # 2.3 H (0-1.0) k/uL PT 23.5 H (9.0-12.0) sec INR 2.4 H (<1.2) Sodium 135 L (137-145) mmol/L Chloride 94 L (98-107) mmol/L Carbon Dioxide 37 H (22-30) mmol/L BUN 25 H (7-17) mg/dL Glucose 121 H (74-99) mg/dL POC Glucose (mg/dL) (75-99) mg/dL Assessment and Plan Assessment: Impression: Acute hypoxic respiratory failure secondary to acute exacerbation of COPD, and atrial fibrillation with RVR. Remains poorly controlled. Shortness of breath secondary to above. Suspect interstitial edema, however the possibility of left lower lobe pneumonia is not entirely ruled out based on the chest x-ray today, hence will cover the patient empirically with antibiotics, awaiting pro calcitonin level and will decide regarding further antibiotics depending on the progress toward level. History of coronary artery disease with previous CABG. History of valvular heart disease and previous mitral and aortic valve replacement/mechanical valve. Secondary pulmonary hypertension secondary to valvular heart disease and underlying COPD Spiculated right upper lobe nodule suspicious for malignancy will need definite outpatient follow-up. Patient will likely require PET scan and possibly navigational bronchoscopy and biopsy or even possibly CT-guided needle biopsy of the nodule. This could be done on outpatient basis. Dyslipidemia. Hypertension. Hypothyroidism. Recommendation: Continue bronchodilators. Continue Pulmicort, discontinued Perforomist as it may be exacerbating her arrhythmia, continue DuoNeb, Titrate oxygen accordingly Continue diuretics. Increased dose of diuretics as her BNP is elevated, and her pro calcitonin is pending. Continue beta blockers. Consider cutting the dose of the patient continues to have symptoms of COPD exacerbation. Continue Cardizem and amiodarone as per cardiology. Continue Coumadin. Follow-up on outpatient basis with Dr. Tovar for spiculated right upper lobe nodule. We will continue to follow. Time with Patient: Less than 30
[2021-06-07] MEDS: FUROSEMIDE 40 MG TAB PO SCH (16:36)
[2021-06-07 16:54] LABS: Glucose,Whole Blood 278 mg/dL (75-99)
--- NOTE | 2021-06-07 17:18 | ECHOF ---
Referral Reason:Afib MEASUREMENTS -------- HEIGHT: 157.5 cm WEIGHT: 104.8 kg BP: AV maxP.04 mmHg AV meanP.17 mmHg FINDINGS -------- Atrial fibrillation. This was a technically difficult study with suboptimal views. This was a techncally difficult study with suboptimal views, , Lumason utilized for enhancement of images. Overall left ventricular systolic function is normal with, an EF between 55 - 60 %. The left atrium was not well visualized. The right atrium was not well visualized. The aortic valve was not well visualized. Peak/mean gradient across the Aortic Valve is 6.04mmHg / 3.17mmHg. Pt had AOV replacement. The peak and mean MV gradients are 18.64mmHg 5.49mmHg as measured by doppler. Pt had MV Replacement . The tricuspid valve was not well visualized. Unable to estimate RVSP due to inadequate TR jet spect ral doppler profile. The pulmonic valve was not well visualized. IVC Not well visulized. There is no pericardial effusion. CONCLUSIONS -------- 1. Atrial fibrillation. 2. This was a technically difficult study with suboptimal views. 3. This was a techncally difficult study with suboptimal views, , Lumason utilized for enhancement of images. 4. Overall left ventricular systolic function is normal with, an EF between 55 - 60 %. 5. The left atrium was not well visualized. 6. The right atrium was not well visualized. 7. The aortic valve was not well visualized. 8. Peak/mean gradient across the Aortic Valve is 6.04mmHg / 3.17mmHg. 9. Pt had AOV replacement. 10. The peak and mean MV gradients are 18.64mmHg 5.49mmHg as measured by doppler. 11. Pt had MV Replacement. 12. The tricuspid valve was not well visualized. 13. IVC Not well visulized. COOK PIE: Sveta Latham, CHRISTELCS
[2021-06-07] MEDS ORDERED: WARFARIN 5 MG TAB PO ONE (18:00)
[2021-06-07 20:31] LABS: Glucose,Whole Blood 159 mg/dL (75-99)
[2021-06-07] MEDS: SENNOSIDES 8.6 MG TAB PO SCH (21:08)
[2021-06-07] MEDS: ATORVASTATIN 40 MG TAB PO SCH (21:09)
[2021-06-07] MEDS: CEFEPIME 2 GM in SODIUM CHLORIDE 0.9% 100 ML IVPB SCH (23:37)
[2021-06-08 06:06] LABS: Glucose,Whole Blood 75 mg/dL (75-99)
[2021-06-08] MEDS: PANTOPRAZOLE 40 MG TABLET PO SCH (06:24)
[2021-06-08] MEDS: LEVOTHYROXINE 25 MCG TAB PO SCH (06:24)
[2021-06-08] MEDS: INSULIN ASPART (NovoLOG) 100 UNIT/ML VIAL SQ SCH ×2 (06:24→12:27)
[2021-06-08] MEDS: ALPRAZolam 0.5 MG TAB PO PRN (08:43)
[2021-06-08] MEDS: ASPIRIN 81 MG PO SCH (08:43)
[2021-06-08] MEDS: METOPROLOL TARTRATE 50 MG TAB PO SCH (08:43)
[2021-06-08] MEDS: FUROSEMIDE 40 MG TAB PO SCH (08:44)
[2021-06-08] MEDS: AMIODARONE 200 MG TAB PO SCH (08:44)
[2021-06-08] MEDS: DILTIAZEM ORAL 60 MG TAB PO SCH (08:44)
[2021-06-08] MEDS: predniSONE 20 MG TAB PO SCH (08:44)
[2021-06-08] MEDS: NON FORMULARY DRUG (Mirabegron [Myrbetriq] 25 MG Tablet) PO SCH (08:45)
[2021-06-08] MEDS: ARIPiprazole 10 MG TAB PO SCH (08:46)
[2021-06-08] MEDS: VENLAFAXINE HCL 75 MG TAB PO SCH (08:46)
[2021-06-08] MEDS: CEFEPIME 2 GM in SODIUM CHLORIDE 0.9% 100 ML IVPB SCH (08:46)
[2021-06-08] MEDS: NYSTATIN 100,000 UNIT/ML SUSP 500,000 UNIT/5 ML CUP PO SCH ×2 (08:46→12:30)
[2021-06-08] MEDS: IPRATROPIUM-ALBUTEROL 3 ML NEB INHALATION PRN ×3 (08:52→15:28)
[2021-06-08] MEDS: BUDESONIDE 1 MG/2 ML NEBU INHALATION SCH (08:52)
[2021-06-08 08:53] VITALS: RESP 20; TEMP 97.8
[2021-06-08 09:25] LABS: African American GFR (CKD) >90 (>60 ml/min/1.73 sqM); Anion Gap 3 mmol/L; Blood Urea Nitrogen 27 mg/dL (7-17); Calcium 8.6 mg/dL (8.4-10.2); Carbon Dioxide 38 mmol/L (22-30); Chloride 96 mmol/L (98-107); Glucose 111 mg/dL (74-99); Non-African American GFR(CKD) >90 (>60 ml/min/1.73 sqM); Potassium 4.3 mmol/L (3.5-5.1); Sodium 137 mmol/L (137-145)
[2021-06-08 09:38] LABS: INR 2.4 (<1.2); Prothrombin Time 23.5 sec (9.0-12.0)
[2021-06-08 11:43] LABS: Glucose,Whole Blood 129 mg/dL (75-99)
[2021-06-08 12:34] VITALS: BP 135/78
--- NOTE | 2021-06-08 13:32 | PN ---
PROGRESS NOTE Mrs. Reddy is a 60-year-old female with history of mitral and aortic valve replacement, history of chronic persistent atrial fibrillation, chronic tobacco use, who presented with worsening dyspnea. She is feeling better this morning her breathing is better. Her cough is better. She denies any dizziness or palpitation. She denies any nausea. Her cough has improved as well. Her ventricular response is better. Her echocardiogram revealed an overall preserved systolic function with normal functioning of her mitral and aortic valve prosthesis. She continues to be on amiodarone 400 mg twice a day, aspirin once a day, Lipitor, diltiazem 120 mg 3 times a day, metoprolol tartrate 100 mg twice a day, furosemide 40 mg twice a day, prednisone and her Coumadin. PHYSICAL EXAMINATION: Blood pressure 136/70 with a heart rate in the 90s to low 100s. LUNGS: With decreased air exchange and scattered wheezes. HEART: Irregular, regular. S1, S2. No S3. No rub. ABDOMEN: Soft and nontender. EXTREMITIES: No edema. LAB DATA: INR of 3.4, BUN and creatinine 27 and 0.56, potassium 4.3. IMPRESSION: 1. Progressive dyspnea with exacerbation of chronic obstructive pulmonary disease. 2. Atrial fibrillation with episode of rapid ventricular response, improved. 3. Status post aortic and mitral valve replacement with prosthetic valve. 4. Chronic tobacco use. 5. Lung mass, rule out malignancy. RECOMMENDATIONS: From the cardiac standpoint, she will continue on amiodarone 400 mg twice a day for a week total and then cut it down to 200 mg twice a day. Her INR needs to be followed closely, specially with the addition of the amiodarone. The patient needs to be have close followup in regards to her abnormal chest x-ray. The importance of smoking cessation was discussed with her. 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 MMODL / IJN: [id number] /
--- NOTE | 2021-06-08 14:53 | P.DS ---
Providers Date of admission: 05/30/21 11:35 Expected date of discharge: 06/08/21 Attending physician: Gabo Castellon MD Consults: 05/30/21 12:12 Consult Physician Routine Consulting Provider: Tigist Tovar Consult Reason/Comments: CHF/Pneumonia, resp failure please evaluate Do you want consulting provider notified?: Yes 05/30/21 12:18 Consult Physician Routine Consulting Provider: Rob Ayers Consult Reason/Comments: CHF/afib resp failure Do you want consulting provider notified?: Yes Primary care physician: Stated None Hospital Course: This is a 60-year-old female with complex past medical history noted below that presented to the hospital with worsening shortness of breath and bilateral lower extremity edema. Patient was evaluated in the ER and admitted for further management of her medical problems noted below. 1. Atrial fibrillation with RVR, requiring IV Cardizem drip on presentation. Currently on oral Cardizem and metoprolol. Dose adjusted by cardiology. Heart rate not well controlled. Patient was started on amiodarone as a last resort to control her heart rate. She will follow-up with cardiology in the office as directed. 2. Acute COPD exacerbation, treated with IV steroids and bronchodilators. I'll transition steroids to oral prednisone 40 mg daily for short course. 3. Acute hypoxic respiratory failure secondary to above. Patient will require O2 supplement when going home. CT angiogram showed no evidence of PE. 4. Chronic medical problems: Coronary artery disease with prior CABG, valvular heart disease status post mitral and aortic valve replacement, spiculated right upper lobe mass measuring 2 cm concerning for malignancy with plan to do further workup outpatient, morbid obesity, hyperlipidemia, hypothyroidism Patient was seen and evaluated by cardiology and pulmonary during this admission. Echocardiogram showed a preserved ejection fraction of 55% but otherwise poor visualization study. Patient will be discharged home with home O2. She was advised to monitor her INR closely with her PCP within the next 2 days as she was started on amiodarone. She will be discharged home in a stable condition. She was counseled extensively regarding tobacco cessation. Physical exam: General: The patient is awake and alert, in no distress Eye: there is normal conjunctiva bilaterally. Neck: The neck is supple, there is no JVD. Cardiovascular: Normal S1-S2, no S3-S4, no murmurs. Respiratory: Lungs clear to auscultation bilaterally Gastrointestinal: Abdomen is soft, nontender Musculoskeletal: There is no pedal edema. Neurological:. Speech is normal. Skin: Skin is warm and dry Patient Condition at Discharge: Stable Plan - Discharge Summary Discharge Rx Participant: No New Discharge Prescriptions: New Ipratropium-Albuterol Nebulize [Duoneb 0.5 mg-3 mg/3 ml Soln] 3 ml INHALATION QID 30 Days #6 pack Metoprolol Tartrate [Lopressor] 100 mg PO BID #30 tab Amiodarone [Cordarone] 400 mg PO BID #60 tab predniSONE 0 mg PO DIRECTED 16 Days #40 tab Diltiazem Oral [Cardizem*] 90 mg PO TID #60 tab Continue Venlafaxine HCl [Effexor] 225 mg PO BID traMADol HCL 50 mg PO Q6H PRN PRN Reason: Pain Rosuvastatin [Crestor] 20 mg PO HS Levothyroxine Sodium [Synthroid] 25 mcg PO DAILY ARIPiprazole [Abilify] 10 mg PO DAILY Warfarin Sodium 6 mg PO W/SUPPER Fluticasone/Vilanterol [Breo Ellipta 100-25 Mcg Inhaler] 1 puff INHALATION R T-DAILY #1 each Warfarin [Coumadin] 1 mg PO W/SUPPER Pantoprazole [Protonix] 40 mg PO DAILY Mirabegron [Myrbetriq] 25 mg PO DAILY HYDROcodone/APAP 7.5-325MG [Ida 7.5-325] 1 tab PO BID PRN PRN Reason: Pain Aspirin EC [Ecotrin Low Dose] 81 mg PO DAILY ALPRAZolam [Xanax] 0.5 mg PO TID Furosemide [Lasix] 40 mg PO BID #30 tab Discontinued Enalapril [Vasotec] 5 mg PO DAILY Bisoprolol Fumarate [Zebeta] 10 mg PO DAILY Discharge Medication List ALPRAZolam [Xanax] 0.5 mg PO TID 05/30/21 [History] ARIPiprazole [Abilify] 10 mg PO DAILY 05/30/21 [History] Aspirin EC [Ecotrin Low Dose] 81 mg PO DAILY 05/30/21 [History] HYDROcodone/APAP 7.5-325MG [Ida 7.5-325] 1 tab PO BID PRN 05/30/21 [History] Levothyroxine Sodium [Synthroid] 25 mcg PO DAILY 05/30/21 [History] Mirabegron [Myrbetriq] 25 mg PO DAILY 05/30/21 [History] Pantoprazole [Protonix] 40 mg PO DAILY 05/30/21 [History] Rosuvastatin [Crestor] 20 mg PO HS 05/30/21 [History] Venlafaxine HCl [Effexor] 225 mg PO BID 05/30/21 [History] Warfarin Sodium 6 mg PO W/SUPPER 05/30/21 [History] Warfarin [Coumadin] 1 mg PO W/SUPPER 05/30/21 [History] traMADol HCL 50 mg PO Q6H PRN 05/30/21 [History] Ipratropium-Albuterol Nebulize [Duoneb 0.5 mg-3 mg/3 ml Soln] 3 ml INHALATION QID 30 Days #6 pack 06/03/21 [Rx] predniSONE 0 mg PO DIRECTED 16 Days #40 tab 06/03/21 [Rx] Diltiazem Oral [Cardizem*] 90 mg PO TID #60 tab 06/04/21 [Rx] Fluticasone/Vilanterol [Breo Ellipta 100-25 Mcg Inhaler] 1 puff INHALATION RT- DAILY #1 each 06/04/21 [Rx] Furosemide [Lasix] 40 mg PO BID #30 tab 06/04/21 [Rx] Metoprolol Tartrate [Lopressor] 100 mg PO BID #30 tab 06/04/21 [Rx] Amiodarone [Cordarone] 400 mg PO BID #60 tab 06/08/21 [Rx] Follow up Appointment(s)/Referral(s): [facility] [NON-STAFF] - 1-2 Days Chuckie Artis MD [STAFF PHYSICIAN] - 1 Week [facility] [NON-STAFF] - Tigist Tovar MD [STAFF PHYSICIAN] - 1 Week Patient Instructions/Handouts: How to Stop Smoking (DC) Activity/Diet/Wound Care/Special Instructions: Dr Chuck Edwards is primary care physician and can be reached at [phone]. On your computed tomography scan incidentally found Right upper lobe spiculated nodule, this is an Incidental finding , This is a solitary pulmonary nodule. This needs to be worked up on outpatient basis. Please follow-up with pulmonary medicine physician in 4 weeks to formulate a plan for follow-up in this regard. Discharge Disposition: HOME SELF-CARE Plan of Treatment: pt to follow up with her hebrew teacher in one week.
[2021-06-08 15:38] VITALS: PULSE 76
[2021-06-08] MEDS ORDERED: DILTIAZEM ORAL 30 MG TAB PO SCH (16:00)
--- NOTE | 2021-06-08 16:48 | P.PN ---
Subjective Progress Note Date: 06/08/21 Patient was reevaluated today on 06/07/21, I saw this patient last about 5 days ago, and I have felt that the patient could be discharged home on the time, patient was cleared from the pulmonary perspective because her lungs have completely cleared and she responded well to bronchodilators. However discharge could not be completed mostly because the patient kept having intermittent episodes of atrial fibrillation and RVR, and cardiology seems to be working on controlling her atrial fibrillation/flutter. In the meantime the patient is developing now recurrent cough and wheezing, and I was asked to see her again today. Patient is indeed having intermittent shortness of breath, but upon my evaluation today, she stated to me that she is feeling fine. On the monitor, her heart rate was in the 100 range, atrial flutter, but last night she had a rate as high as 150/A. fib with RVR. Patient is on amiodarone, she is also on diltiazem at 120 mg by mouth 3 times a day. And she is also on metoprolol 100 mg twice a day which could be a contributing factor to her COPD exacerbation. For her COPD the patient is on DuoNeb updrafts, she is also on Perforomist which I have discontinued as it may be triggering her atrial fibrillation with RVR. Labs today showed a set of 20.3 hemoglobin of 12 INR is 2.4. Renal profile is normal. Chest x-ray today is showing interstitial edema, and possible left lower lobe pneumonia, pro-calcitonin is pending and BNP is 2460.. In the meantime I have recommended antibiotics empirically. Her dose of diuretics was increased by me today. The patient is seen today 06/08/2021 in follow-up on the selective care unit. She is currently sitting up in bed. Awake and alert in no acute distress. Doing quite a bit better today as compared to yesterday. Denies any worsening shortness of breath, cough or congestion. Her heart rate is much better controlled currently in the 70s she is maintaining O2 saturation 99% on 3 L nasal cannula. INR 2.4. Sodium 137. Potassium 4.3. Creatinine 0.56. She is anticoagulated with warfarin. Remains on oral diuretics. Oral antiarrhythmics. Antibiotics in the form of cefepime. Bronchodilators. Objective - Vital Signs Vital signs: Vital Signs Temp 97.8 F 06/08/21 08:00 Pulse 76 06/08/21 15:38 Resp 20 06/08/21 12:00 BP 135/78 06/08/21 12:00 Pulse Ox 99 06/08/21 15:31 Intake & Output 06/07/21 06/08/21 06/08/21 18:59 06:59 18:59 Intake Total 720 820 438 Balance 720 820 438 Weight 104.4 kg Intake: Intake, IV Titration 100 200 Amount Cefepime 2 gm In Sodium 200 Chloride 0.9% 100 ml @ 200 mls/hr IVPB ONCE ONE Rx#:[id number] Cefepime 2 gm In Sodium 100 Chloride 0.9% 100 ml @ 25 mls/hr IVPB Q8HR ROGERS Rx# :[id number] Oral 720 720 238 Other: Voiding Method Bedside Commode Bedside Commode # Voids 1 2 - Exam GENERAL EXAM: Alert, pleasant 60-year-old female patient, on 3 L nasal cannula, comfortable in no apparent distress. HEAD: Normocephalic. EYES: Normal reaction of pupils, equal size. NOSE: Clear with pink turbinates. THROAT: No erythema or exudates. NECK: No masses, no JVD. CHEST: No chest wall deformity. LUNGS: Equal air entry with end expiratory wheeze, diminished. CVS: S1 and S2 normal with no audible murmur, irregular rhythm. ABDOMEN: No hepatosplenomegaly, normal bowel sounds, no guarding or rigidity. SPINE: No scoliosis or deformity SKIN: No rashes CENTRAL NERVOUS SYSTEM: No focal deficits, tone is normal in all 4 extremities. EXTREMITIES: There is no peripheral edema. No clubbing, no cyanosis. Peripheral pulses are intact. - Labs CBC & Chem 7: 06/07/21 09:37 06/08/21 08:07 Labs: Abnormal Lab Results - Last 24 Hours (Table) 06/07/21 06/07/21 06/08/21 Range/Units 16:52 20:30 08:07 PT (9.0-12.0) sec INR (<1.2) Chloride 96 L (98-107) mmol/L Carbon Dioxide 38 H (22-30) mmol/L BUN 27 H (7-17) mg/dL Glucose 111 H (74-99) mg/dL POC Glucose (mg/dL) 278 H 159 H (75-99) mg/dL 06/08/21 06/08/21 Range/Units 08:07 11:40 PT 23.5 H (9.0-12.0) sec INR 2.4 H (<1.2) Chloride (98-107) mmol/L Carbon Dioxide (22-30) mmol/L BUN (7-17) mg/dL Glucose (74-99) mg/dL POC Glucose (mg/dL) 129 H (75-99) mg/dL Assessment and Plan Assessment: 1 Acute hypoxic respiratory failure secondary to acute exacerbation of COPD, and atrial fibrillation with RVR. Remains poorly controlled. 2 Shortness of breath secondary to above. 3 Suspect interstitial edema, however the possibility of left lower lobe pneumonia is not entirely ruled out based on the chest x-ray today, hence will cover the patient empirically with antibiotics, awaiting pro calcitonin level and will decide regarding further antibiotics depending on the progress toward level. 4 History of coronary artery disease with previous CABG. 5 History of valvular heart disease and previous mitral and aortic valve replacement/mechanical valve. 6 Secondary pulmonary hypertension secondary to valvular heart disease and underlying COPD 7 Spiculated right upper lobe nodule suspicious for malignancy will need definite outpatient follow-up. Patient will likely require PET scan and p ossibly navigational bronchoscopy and biopsy or even possibly CT-guided needle biopsy of the nodule. This could be done on outpatient basis. 8 Dyslipidemia. 9 Hypertension. 10 Hypothyroidism. Plan: The patient was seen and evaluated by Dr. Terry Klein for discharge from the pulmonary standpoint Will need outpatient follow-up regarding the right upper lobe spiculated lesion Will need a PET scan and possible navigational bronchoscopy with biopsy Follow-up in our office in 1-2 weeks' I, the cosigning physician, performed a history & physical examination of the patient. Lungs sounds with end expiratory wheeze, diminished. Maintaining good O2 saturations in the 90s on 2 L/m per nasal cannula. I discussed the assessment and plan of care with my nurse practitioner, Lashay Lugo. I attest to the above note as dictated by her.
[2021-06-08] MEDS ORDERED: WARFARIN 5 MG TAB PO ONE (18:00)
== END 2021-06-08 16:17 | disposition home or self-care (01) | DRG 291 ==
LOC: 2SICU 11:35 → 3SCARD 06-03 07:19
PROVIDERS: ADMIT Student in an Organized Health Care Education/Training Program; ATTEND Student in an Organized Health Care Education/Training Program
DX: I11.0 Hypertensive heart disease with heart failure (principal); J96.01 Acute respiratory failure with hypoxia; J44.1 Chronic obstructive pulmonary disease with (acute) exacerbation; Z68.42 Body mass index [BMI] 45.0-49.9, adult; I48.21 Permanent atrial fibrillation; I48.92 Unspecified atrial flutter; I50.43 Acute on chronic combined systolic (congestive) and diastolic (congestive) heart failure; E66.01 Morbid (severe) obesity due to excess calories; E03.9 Hypothyroidism, unspecified; E11.9 Type 2 diabetes mellitus without complications; E78.5 Hyperlipidemia, unspecified; F17.210 Nicotine dependence, cigarettes, uncomplicated; G47.33 Obstructive sleep apnea (adult) (pediatric); I25.10 Atherosclerotic heart disease of native coronary artery without angina pectoris; Z95.1 Presence of aortocoronary bypass graft; Z95.0 Presence of cardiac pacemaker; Z79.899 Other long term (current) drug therapy; Z79.890 Hormone replacement therapy; Z95.2 Presence of prosthetic heart valve; Z79.82 Long term (current) use of aspirin; Z79.01 Long term (current) use of anticoagulants; R79.1 Abnormal coagulation profile; Z20.822 Contact with and (suspected) exposure to COVID-19; I27.29 Other secondary pulmonary hypertension; I25.2 Old myocardial infarction; I07.1 Rheumatic tricuspid insufficiency
CPT/HCPCS: 71045; 71275; 80048; 80053; 81003; 82553; 83735; 83880; 84100; 84132; 84145; 84439; 84443; 84484; 85025; 85610; 85730; 93306; 94640; 94660; 94760

== ENCOUNTER → 2021-06-27 | Outpatient (CLI) | payer MEDICARE, BC ==
--- NOTE | 2021-06-30 08:50 | PE ---
EXAMINATION TYPE: PET CT fusion skull to thigh DATE OF EXAM: 06/27/2021 COMPARISON: CT for pulmonary embolism May 30, 2021 HISTORY: Solitary pulmonary nodule, abnormal CT TECHNIQUE: Following the intravenous administration of 9.11 mCi of F-18 FDG, whole body images are p erformed from the skull base to the midthigh. Images are reviewed on the computer in the coronal, ax ial, and sagittal planes. Reconstructed rotating images are created on independent workstation and r eviewed on the computer. A localization and attenuation correction CT is performed in conjunction w ith the PET scan. Blood glucose level equals 89. SCAN: Initial Scan FINDINGS: SKULL BASE AND NECK: No areas of abnormal hypermetabolic uptake. CHEST, MEDIASTINUM, AND HILAR REGION: Stable mild Underlying emphysematous and pulmonary fibrotic bernardino nges with 2.7 x 2.1 cm lateral right midlung nodule axial image 88 redemonstrated with abnormal hyper metabolic uptake, max SUV is 6.23. There is hypermetabolic 1.4 x 1.0 cm subcarinal lymph node axial image 88, Max SUV is 7.06. No additional areas of abnormal hypermetabolic uptake. ABDOMEN AND PELVIS: No hypermetabolic adrenal masses. Low dense small nodularity consistent with lynette gn lipid rich adenomas. Normal excretion. Abnormal hypermetabolic uptake in the lower uterine segment/cervix axial image 207 should be correlat ed with pelvic exam and Pap smear, there is artifact from adjacent bladder. OSSEOUS STRUCTURES: No abnormal hypermetabolic uptake. OTHER CT: Moderate to severe calcified plaque bilateral carotid bulb level. Nasal septum deviated to right of midline. Post-CABG changes with mediastinal clips and sternal wires redemonstrated. Enlarged main pulmonary ar amada consistent with underlying pulmonary artery hypertension. Calcification at the level of mitral a nd aortic valve. Cardiomegaly. Cholecystectomy clips. Visualized liver is low dense consistent with diffuse fatty infiltration. Scat tered left-sided pelvic phleboliths. Vacuum disc phenomenon at L1-L2 and L2-L3 levels along with L5-S 1 level. IMPRESSION: 1. 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 2. Abnormal hypermetabolic uptake in the cervix, correlate with pelvic exam and Pap smear to exclude primary cervical malignancy. Finding may reflect artifact from misregistration from adjacent bladder excretion.
== END | disposition home or self-care (01) ==
LOC: RADPETMAIN 14:41
PROVIDERS: ATTEND Nurse Practitioner Adult Health
DX: D49.1 Neoplasm of unspecified behavior of respiratory system (principal); R91.1 Solitary pulmonary nodule
CPT/HCPCS: 78815; A9552

== ENCOUNTER 2021-07-24 10:40 | Day surgery (SDC) | payer MEDICARE, BC ==
[2021-07-02 15:50] VITALS: BMI 40.9
[~2021-07-24 10:40] MED LIST: ALBUTEROL NEB (CONC) 2.5 MG/0.5 ML INHALATION ONE; DEXAMETHASONE SOD PHOSPHATE 4 MG/ML 1 ML VIAL IV ONE; HYDROmorphone 0.5 MG/0.5 ML SYRINGE IVP PRN; LACTATED RINGERS 1,000 ML IV SCH; LIDOCAINE 1% (10MG/ML) FOR IV START INTRADERMA PRN; LIDOCAINE 2% (PF) 20 MG/ML 5 ML VIAL INHALATION ONE; LIDOCAINE VISCOUS 300 MG/15 ML CUP MUCOUS MEM ONE; MIDAZOLAM 2 MG/2 ML VIAL IV PRN; ONDANSETRON 4 MG/2 ML VIAL IVP ONE; SODIUM CHLORIDE 0.9% 1,000 ML IV SCH
[2021-07-24 12:55] LABS: Prothrombin Time 10.4 sec (9.0-12.0)
--- NOTE | 2021-07-24 13:02 | CT ---
EXAMINATION TYPE: CT Chest ritchie Bolden Protocol DATE OF EXAM: 07/24/2021 COMPARISON: [id number]: HISTORY: Navigational bronch. CT DLP: 635 mGycm Automated exposure control for dose reduction was used. FINDINGS: 3 cm spiculated renal 3 cm subsegmental consolidation extending from the hilum. 120 There is noted involving the lung bases. 7 mm right lower lobe nodule axial image 50 no pneumothorax or pleural effusion. Prominent subcarinal lymph node stable from the recent PET scan. Chronic appeari ng nodularity adrenal glands Atherosclerotic change aorta. Postsurgical change involving the aortic valve and sternotomy wires are noted. Cardiac lead is hypertrophic degenerative change spine. Postcholecystectomy changes are seen. Underlying changes of COPD noted. IMPRESSION: STABLE RIGHT UPPER LOBE SPICULATED MASS SUSPICIOUS FOR MALIGNANCY. SUBCENTIMETER RIGHT LOWER LOBE PUL MONARY NODULE NOTED. COPD WITH FINDINGS SUGGESTIVE OF INTERSTITIAL PULMONARY FIBROSIS.
[2021-07-24] MEDS ORDERED: fentaNYL (PF) 50 MCG/ML 2 ML AMP ONE (13:37)
[2021-07-24] MEDS ORDERED: ROCURONIUM 10 MG/ML (5 ML VIAL) IV ONE (13:37)
[2021-07-24] MEDS ORDERED: NEOSTIGMINE 1 MG/ML 10 ML VIAL ONE (13:37)
[2021-07-24] MEDS ORDERED: LIDOCAINE 1% INJ 10MG/ML (20 ML MDV) ONE (13:37)
[2021-07-24] MEDS ORDERED: GLYCOPYRROLATE 0.2 MG/ML 2 ML VIAL ONE (13:37)
[2021-07-24] MEDS ORDERED: SUCCINYLCHOLINE CHLORIDE VIAL 200 MG/10 ML VIAL IV ONE (13:37)
[2021-07-24] MEDS ORDERED: PROPOFOL 10 MG/ML 20 ML VIAL IV ONE (13:37)
[2021-07-24] MEDS ORDERED: SODIUM CHLORIDE 0.9% 500 ML 500 ML IV ONE (14:05)
--- NOTE | 2021-07-24 14:57 | P.PCN ---
Date of Procedure: 07/24/21 Operative Findings: Preoperative Diagnosis: 1 right upper lobe mass 2 mediastinal lymphadenopathy, preoperative endoscopic ultrasound for staging purposes Postoperative Diagnosis: 1 right upper lobe mass 2 mediastinal lymphadenopathy Procedure(s) Performed: 1 flexible bronchoscopy, airway inspection 2 Navigational Bronchoscopy with TBBX of the RUL mass 3 endoscopic ultrasound (EBUS) 4 transbronchial needle aspirate of station station 7 lymph nodes Surgeon: Tigist [employer] Resource Program Teacher #1: Lashay Lugo (olivia Garcia) Estimated Blood Loss (ml): 0 Pathology: other Condition: stable Disposition: same day Operative Findings: Preoperatively, the patient underwent a computed tomography scan of the chest using the Veran protocol. The right upper lobe lesion was identified and mapped. The Vpads was applied to the patient's chest. All of this information were uploaded into the navigational tower After obtaining the consent the patient was taken to the OR suite he was intubated and put on MV by anesthesia then the scope was advanced to the ET tube until the Trachea was seen and it was normal and then the yeison appears normal then the scope advanced to the left main and LAN LB1-LB3 were seen and no endobronchial lesions were seen then the scope advanced to the lingula and the LB4 and LB5 were seen and no endobronchial lesions were seen the scope retracted and advanced to the left lower lobes LB6 to LB12 were seen one by one and no endobronchial lesions, then the scope was retracted back to the yeison and advanced to the Right main and RUL RB1 and RB2 and RB3 were seen one by one and no endobronchial lesions were seen the scope then retracted and advanced to the BI and RML RB4 and RB5 were seen and no endobronchial lesions were seen then it was retracted and advanced to the RLL RB6 to RB12 were seen one by one and no endobronchial lesions. Following that, navigational bronchoscopy was introduced. The reference points were taken using the main yeison and the secondary yeison on the left as referen ce points. Using navigational guidance, the bronchoscope was directed to the right upper lobe. The lesion was targeted to a fifth airway branching from the right upper lobe. After identification the lesion, the position of the tumor was also confirmed with a radial ultrasound probe. Following that, transbronchial biopsy of the right upper lobe lesion was done on the navigational guidance. Multiple biopsies were obtained. The navigational bronchoscope was removed. Following that, endobronchial ultrasound was introduced. Then EBUS was used and the lymph nodes were examined. Direct measurement of the mediastinal lymph nodes revealed 1.2 cm station 7 lymph node . I performed transbronchial needle aspirate of station 7 and a total of 4 passes FNA without major bleeding. The bronchoscope was then removed. The flexible bronchoscope was again introduced and therapeutic it was suctioning was done. No evidence of any endobronchial bleed. Bronchoscope was removed. The patient was extubated by AMUSEMENT RIDE OPERATOR the patient was transferred recovery in stable condition.
[2021-07-24 15:20] VITALS: TEMP 97.5
[2021-07-24 16:28] VITALS: RESP 16
--- NOTE | 2021-07-24 16:53 | XR ---
EXAMINATION TYPE: XR chest 1V portable DATE OF EXAM: 07/24/2021 COMPARISON: CT chest earlier today. HISTORY: Postbronchoscopy. TECHNIQUE: Single AP portable frontal upright view of the chest is obtained. FINDINGS: There are increased opacities bilaterally greatest in the lower lungs seen in the right mi dlung periphery. No pneumothorax seen after bronchoscopy. The cardiac silhouette size is stable and m ildly enlarged with metallic cardiac valvular ring redemonstrated. Overlying sternal wires redemonstr ated. The osseous structures are intact. IMPRESSION: No pneumothorax after bronchoscopy.
[2021-07-24 16:54] VITALS: BP 105/68; PULSE 64
== END 2021-07-24 17:17 | disposition home or self-care (01) ==
LOC: ORWHC2ENDO 10:40
PROVIDERS: ATTEND Internal Medicine Critical Care Medicine
DX: R91.1 Solitary pulmonary nodule (principal); R59.0 Localized enlarged lymph nodes; C34.11 Malignant neoplasm of upper lobe, right bronchus or lung; C77.2 Secondary and unspecified malignant neoplasm of intra-abdominal lymph nodes; E03.9 Hypothyroidism, unspecified; I48.91 Unspecified atrial fibrillation; Z79.01 Long term (current) use of anticoagulants; E78.5 Hyperlipidemia, unspecified; I25.10 Atherosclerotic heart disease of native coronary artery without angina pectoris; I10 Essential (primary) hypertension; J44.9 Chronic obstructive pulmonary disease, unspecified; Z79.899 Other long term (current) drug therapy; Z87.891 Personal history of nicotine dependence; Z95.2 Presence of prosthetic heart valve
CPT/HCPCS: 81025; 88305; 88173; 85610; 88342; 88341; 71045; 71250; 31629; 31625; 31627; 31652; J2250; J0330; J1100; J2710; J2405; J2001; J3010; J2704